=== PATIENT | male | born 1950 | race Caucasian/White ===

== ENCOUNTER 2018-06-27 09:40 | Day surgery (SDC) | payer OTHER ==
[2018-06-26 17:37] VITALS: BMI 28.9
[~2018-06-27 09:40] MED LIST: ACETAMINOPHEN 325 MG TABLET (FP) PO PRN
[2018-06-27] MEDS ORDERED: CYCLOPENTOLATE HCL 1% OPHTH SOLN 2 ML BOTTLE ONE (10:39)
[2018-06-27] MEDS ORDERED: PHENYLEPHRINE 2.5% OPHTH SOLN 15 ML BOTTLE ONE (10:39)
[2018-06-27] MEDS ORDERED: OFLOXACIN 0.3% OPHTHALMIC SOLUTION 5 ML BOTTLE ONE (10:39)
[2018-06-27] MEDS ORDERED: TROPICAMIDE 1% OPHTH SOLN 15 ML BOTTLE ONE (10:39)
[2018-06-27] MEDS ORDERED: KETOROLAC TROMETHAMINE 0.5% EYE DROP 1 DROP DROPS ONE (10:40)
[2018-06-27] MEDS ORDERED: MIDAZOLAM HCL 2 MG/2 ML SINGLE DOSE VIAL ONE (10:47)
[2018-06-27 10:48] VITALS: TEMP 98.5
[2018-06-27] MEDS ORDERED: ONDANSETRON 4 MG/2 ML VIAL IVPUSH PRN (10:51)
[2018-06-27] MEDS: TROPICAMIDE 1% OPHTH SOLN 15 ML BOTTLE OP SCH ×3 (11:00→11:10)
[2018-06-27] MEDS: KETOROLAC TROMETHAMINE 0.5% EYE DROP 1 DROP DROPS OP SCH ×3 (11:00→11:10)
[2018-06-27] MEDS ORDERED: LACTATED RINGERS SOLUTION 1,000 ML IV SCH (11:00)
[2018-06-27] MEDS: CYCLOPENTOLATE HCL 1% OPHTH SOLN 2 ML BOTTLE OP SCH ×3 (11:00→11:10)
[2018-06-27] MEDS: OFLOXACIN 0.3% OPHTHALMIC SOLUTION 5 ML BOTTLE OP SCH ×3 (11:00→11:10)
[2018-06-27] MEDS: PHENYLEPHRINE 2.5% OPHTH SOLN 15 ML BOTTLE OP SCH ×3 (11:00→11:10)
[2018-06-27] MEDS ORDERED: BUPIVACAINE HCL/PF 0.75% 10 ML VIAL NR ONE (11:21)
[2018-06-27] MEDS ORDERED: LIDOCAINE HCL/PF 2% SDV 5ML VIAL INF ONE (11:21)
[2018-06-27] MEDS ORDERED: POVIDONE-IODINE 5% OPHTHALMIC PREP 30 ML SOLUTION OD ONE (11:23)
[2018-06-27] MEDS ORDERED: BSS (NA/CA/MG/K) BALANCED SALT SOLUTION OPHTH SOLN 15 ML BOTTLE OD ONE (11:34)
[2018-06-27] MEDS ORDERED: TRYPAN BLUE 0.5 ML DISP.SYRIN IO ONE (11:34)
[2018-06-27] MEDS ORDERED: LIDOCAINE HCL 1% PRESERVATIVE FREE - 30ML VIAL IO ONE (11:34)
[2018-06-27] MEDS ORDERED: KETAMINE HCL 200 MG/20 ML VIAL ONE (11:35)
[2018-06-27] MEDS ORDERED: CHONDROITIN SU A/HYALUR SOD 1 KIT IO ONE (11:35)
[2018-06-27] MEDS ORDERED: EPINEPHrine/PF 1 MG/1 ML (1:1,000) AMPULE SQ ONE (11:42)
[2018-06-27] MEDS ORDERED: EPINEPHrine/PF 1 MG/1 ML (1:1,000) AMPULE ONE (12:03)
[2018-06-27 13:36] VITALS: BP 158/82; PULSE 60
--- NOTE | 2018-06-27 13:47 | OP ---
DATE OF OPERATION: 06/27/2018 SURGEON: Bladimir Dominguez M.D. PREOPERATIVE DIAGNOSIS: Mature cataract, right eye. POSTOPERATIVE DIAGNOSIS: Mature cataract, right eye. OPERATION: Phacoemulsification of right cataract with capsular staining with Trypan blue and posterior chamber intraocular lens implantation, lens used [id number], 22.0 diopter power, serial No. [id number]. ANESTHESIA: Peribulbar/Modified Van Lint/MAC. COMPLICATIONS: None. PROCEDURE: The patient was brought into the operating room and correctly identified along with the operative site as well as correct intraocular lens power. He was then given a peribulbar block under sedation with a 1:1 mixture of 2% Lidocaine and 0.75% Bupivacaine, 5 mL was used. Then, 3 mL of the same mixture was given as a modified Van Lint block. The eye was then prepped and draped in the usual sterile fashion including 5% Betadine solution in the conjunctival sac and an eyelid drape. An eyelid speculum was then placed into the right eye. The eyelid was inspected and a mature brown cataract was noted. A paracentesis port was created, and a small air bubble placed, and beneath the air bubble, the capsule was stained with Trypan blue. The Trypan blue was irrigated from the eye using 1% lidocaine preservative- free. Viscoelastic was injected to inflate the anterior chamber, and a temporal clear corneal was created. The eye was noted to be soft during wound construction. A continuous circular capsulorrhexis was performed. The nucleus was then hydro-dissected with BSS. A phacoemulsification was initiated by trying to create a central groove. The eye was noted to significantly deepen, nad the nucleus proved to be difficult to crack into 2 pieces. the decision was then made to create a cruciate groove within the nucleus. This took a significant amount of phacoemulsification energy and at times the procedure was halted to replace Viscoat within the anterior chamber to protect the cornea. The nucleus was finally cracked and removed in quadrants by also employing a chopping technique. There was no significant epinuclear material, and the cortical material was irrigated and aspirated from the eye. Viscoelastic was injected to inflate the capsular bag. The lens was injected into the capsular bag. The viscoelastic was then irrigated and aspirated from the eye. BSS was injected to inflate the anterior chamber, and the wounds were tested. However, the anterior chamber did not seem to be stable. A single 10-0 nylon suture was placed in the temporal clear corneal wound, and again, the anterior chamber tested. There seemed to be some leak in the superior paracentesis, so, another suture was placed. After the 2nd suture, the anterior chamber was noted be stable. All wounds were tested and found to be watertight. No further suture was placed. The intraocular lens was noted to be well centered and covered by the anterior capsular border. Topical Vancomycin given, the eye patched and shielded, and the patient discharged from the operating room in a stable condition. BLADIMIR DOMINGUEZ M.D. [id number] MTDAme
== END 2018-06-27 13:42 | disposition home or self-care (01) ==
LOC: JASU-SURG 09:40
PROVIDERS: ATTEND Ophthalmology
PROC: 08RJ3JZ Replacement of Right Lens with Synthetic Substitute, Percutaneous Approach (ICD-10-PCS; principal; 2018-06-27 11:00)
DX: H26.9 Unspecified cataract (principal)
CPT/HCPCS: 82962

== ENCOUNTER 2018-11-12 19:05 | Inpatient (IN) | payer OTHER ==
[2018-11-12 19:16] VITALS: BMI 26.3
[2018-11-12 21:20] LABS: BASO % 0.3 % (0-2.0); EOS % 0.3 % (0-4.5); HEMATOCRIT 38.5 % (35.4-49); HEMOGLOBIN 12.8 GM/dL (11.7-16.9); MCH 33.9 pg (25.7-33.7); MCHC 33.3 g/dl (32.0-35.9); MEAN CELL VOLUME 101.7 fl (80-96); MEAN PLT VOLUME 9.6 fl (7.5-11.1); MONO % 7.7 % (3.8-10.2); NEUT % 81.7 % (42.8-82.8); PLATELET COUNT 109 K/MM3 (134-434); RBC 3.78 M/mm3 (4.00-5.60); RDW 15.2 % (11.9-15.9); WHITE BLOOD COUNT 6.7 K/mm3 (4.0-10.0)
[2018-11-12 21:54] LABS: INR 1.2 (0.83-1.09); PROTHROMBIN TIME (PATIENT) 14.2 SEC (9.7-13.0)
--- NOTE | 2018-11-12 21:56 | PDOC ---
Attending Attestation - Resident Resident Name: AnupamanaDamon - ED Attending Attestation I have performed the following: I have examined & evaluated the patient, The case was reviewed & discussed with the resident, I agree w/resident's findings & plan, Exceptions are as noted - Medical Decision Making 11/13/18 00:08 This 68-year-old male brought in by ambulance from home because he was too weak to walk independently. He typically uses a walker and/or cane to ambulate. Tonight his family could not help him walk. He was very unsteady on his feet. His sister stated that he had been a [facility] having an EEG and had been immobilized in his bed from until Monday. He was discharged home and the family was alarmed and his inability to walk. Patient follows all commands. He can raise his legs off the bed for 5 seconds, there is no drift. No weakness. He can raise his arms up over his head for 10 seconds each. No weakness. Differential diagnosis includes weakness due to immobilization and deconditioning while in hospital, sepsis,cva 11/13/18 00:12 11/13/18 00:18 renal insuffiency vs dehydration w bun=56, cr=1.9 11/13/18 00:19 <Kindra Jose - Last Filed: 11/13/18 00:19> - HPI HPI: 11/12/18 22:07 The patient is a 68 year old male, with a significant past medical history of dementia, HTN, DM, who presents to the emergency department with, generalized weakness with associated left wrist and left knee pain. Patient normally ambulates with a cane and today cannot ambulate without assistance. He was recently at [facility] for 5 days for EEG testing. Allergies: NKDA - Physicial Exam PE: 11/12/18 22:07 GENERAL: Well-appearing, well-nourished. No apparent distress. HEENT: Normocephalic, atraumatic. PERRL, EOM intact. CARDIOVASCULAR: Normal S1, S2. Regular rate and rhythm. PULMONARY: Clear to auscultation bilaterally. ABDOMEN: Protuberant. Soft, non-distended, non-tender. EXTREMITIES: Normal ROM in all four extremities. No gross deformities. SKIN: Warm, dry. No rash NEUROLOGICAL: Can hold blt LE up for 10 seconds. Can hold blt UE up for 5 seconds. No focal neurological deficits. - Medical Decision Making Patient will be admitted to hospitalist for further evaluation. <Christiano Holguin - Last Filed: 11/13/18 01:38> Attestations - Attestations 11/12/18 22:07 Documentation prepared by Christiano Holguin, acting as medical librarian for Kindra Jose MD. <Christiano Holguin - Last Filed: 11/13/18 01:38>
[2018-11-12 22:17] LABS: ALBUMIN 3.4 g/dl (3.4-5.0); ALK PHOS 118 U/L (45-117); ANION GAP 6 MMOL/L (8-16); BILIRUBIN,TOTAL 0.3 mg/dL (0.2-1); BLOOD UREA NITROGEN 56 mg/dL (7-18); CHLORIDE 109 mmol/L (98-107); CO2 31 mmol/L (21-32); CREATININE 1.9 mg/dL (0.55-1.3); GLUCOSE,RANDOM 75 mg/dL (74-106); MAGNESIUM 2.4 mg/dL (1.8-2.4); POTASSIUM 3.9 mmol/L (3.5-5.1); SGOT/AST 44 U/L (15-37); SGPT/ALT 50 U/L (13-61); SODIUM 146 mmol/L (136-145)
[2018-11-12] MEDS ORDERED: SODIUM CHLORIDE 1,000 ML IV STA (22:39)
--- NOTE | 2018-11-12 22:50 | PDOC ---
History of Present Illness - General Chief Complaint: Pain, Acute Stated Complaint: WEAKNESS Time Seen by Provider: 11/12/18 19:51 History Source: Family Exam Limitations: Clinical Condition - History of Present Illness Initial Comments: 11/12/18 22:46 Patient is a 68M with history of seizures, dementia here today with weakness. His family member at bedside states that he was recently admitted at [facility] (Admitted , discharged today 11/13/18) for Video EEG monitoring which was negative. Neurologist is Dr Ramirez. Patient's family member states that he normally walks with cane and walker at baseline but was unable to ambulate at home at all and they were not able to take care of him. No seizure activity was noted. His typical seizure is described as the patient ignoring the world for a minute or two, then coming back. Patient endorses pain in both his arms and legs, but denies falling. Past History - Past Medical History Allergies/Adverse Reactions: Allergies Allergy/AdvReac Type Severity Reaction Status Date / Time No Known Allergies Allergy Verified 11/12/18 19:16 Home Medications: Ambulatory Orders Amlodipine Besylate [Norvasc] 10 mg PO DAILY 04/05/12 Carbamazepine [Tegretol] 400 mg PO BID 04/05/12 Carvedilol [Coreg] 25 mg PO BID 04/05/12 Furosemide [Lasix] 40 mg PO DAILY 04/05/12 Vit B1 Mn/B2/B3/B5/B6/B12/C/FA [B Complex with Vitamin C Tab] 1 each PO DAILY Donepezil HCl 10 mg PO HS 06/26/18 Insulin Glargine,Hum.rec.anlog [Lantus] 28 unit SQ DAILY 06/26/18 Lacosamide [Vimpat -] 100 mg PO BID 06/26/18 Cardiac Disorders: Yes (CVA) COPD: No CHF: Yes Dementia: Yes Diabetes: Yes HTN: Yes Hypercholesterolemia: Yes Seizures: Yes - Suicide/Smoking/Psychosocial Hx Smoking Status: No Smoking History: Never smoked Have you smoked in the past 12 months: No Number of Cigarettes Smoked Daily: 0 Information on smoking cessation initiated: No Hx Alcohol Use: No Drug/Substance Use Hx: No Substance Use Type: None Hx Substance Use Treatment: No Review of Systems - Review of Systems Comments:: 11/12/18 22:50 GENERAL/CONSTITUTIONAL: No fever or chills. No weakness. HEAD, EYES, EARS, NOSE AND THROAT: No change in vision. No sore throat. CARDIOVASCULAR: No chest pain or shortness of breath RESPIRATORY: No cough, wheezing, or hemoptysis. GASTROINTESTINAL: No nausea, vomiting, diarrhea or constipation. GENITOURINARY: No dysuria, frequency, or change in urination. MUSCULOSKELETAL: +bodyaches. No neck or back pain. SKIN: No rash NEUROLOGIC: No headache, vertigo, loss of consciousness, or change in strength/ sensation. ENDOCRINE: No increased thirst. No abnormal weight change HEMATOLOGIC/LYMPHATIC: No anemia, easy bleeding, or history of blood clots. ALLERGIC/IMMUNOLOGIC: No hives or skin allergy. *Physical Exam - Vital Signs Last Vital Signs Temp Pulse Resp BP Pulse Ox 98.2 F 78 16 132/68 100 11/12/18 19:14 11/12/18 19:14 11/12/18 19:14 11/12/18 19:14 11/12/18 19:14 - Physical Exam Comments: 11/12/18 22:50 GENERAL: Awake, alert, in no acute distress HEAD: No signs of trauma, normocephalic, atraumatic EYES: PERRLA, EOMI, sclera anicteric, conjunctiva clear ENT: Auricles normal inspection, hearing grossly normal, nares patent, oropharynx clear without exudates. Moist mucosa NECK: Normal ROM, supple, no lymphadenopathy, JVD, or masses LUNGS: No distress, speaks full sentences, clear to auscultation bilaterally HEART: Regular rate and rhythm, normal S1 and S2, no murmurs, rubs or gallops, peripheral pulses normal and equal bilaterally. ABDOMEN: Soft, nontender, normoactive bowel sounds. No guarding, no rebound. No masses EXTREMITIES: Normal inspection, Normal range of motion, no edema. No clubbing or cyanosis. NEUROLOGICAL: Cranial nerves II through XII grossly intact. Normal speech, 5/5 strength in all extremities, no focal sensorimotor deficits SKIN: Warm, Dry, normal turgor, no rashes or lesions noted. Moderate Sedation - Procedure Monitoring Vital Signs: Procedure Monitoring Vital Signs Temperature 98.2 F 11/12/18 19:14 Pulse Rate 78 11/12/18 19:14 Respiratory Rate 16 11/12/18 19:14 Blood Pressure 132/68 11/12/18 19:14 O2 Sat by Pulse Oximetry (%) 100 11/12/18 19:14 ED Treatment Course - LABORATORY CBC & Chemistry Diagram: 11/12/18 20:58 11/12/18 20:58 - ADDITIONAL ORDERS Additional order review: Laboratory Results 11/12/18 11/12/18 20:58 20:58 PT with INR 14.20 H INR 1.20 H Sodium 146 H Potassium 3.9 Chloride 109 H Carbon Dioxide 31 Anion Gap 6 L BUN 56 H Creatinine 1.9 H Creat Clearance w eGFR 35.43 Random Glucose 75 Calcium 9.0 Magnesium 2.4 Total Bilirubin 0.3 AST 44 H ALT 50 Alkaline Phosphatase 118 H Creatine Kinase 123 Troponin I < 0.02 Total Protein 8.0 Albumin 3.4 11/12/18 20:58 RBC 3.78 L MCV 101.7 H MCHC 33.3 RDW 15.2 MPV 9.6 D Neutrophils % 81.7 D Lymphocytes % 10.0 D Monocytes % 7.7 Eosinophils % 0.3 D Basophils % 0.3 - RADIOLOGY Radiology Studies Ordered: Category Date Time Status HEAD CT WITHOUT CONTRAST [CT] Stat CT Scan 11/12/18 20:37 Ordered CHEST X-RAY PORTABLE* [RAD] Stat Radiology 11/12/18 20:31 Taken Medical Decision Making - Medical Decision Making 11/12/18 22:51 Patient is a 68M with history of dementia and seizure here today with weakness. Vitals normal and stable. Stroke considered, but no focal deficits found. Suspect deconditioning and not enough sr. 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 DDx includes, but is not limited to: acs, uti, pneumonia. Will workup with basic labs, ekg, ct head, cxr. Will likely require obs admission. CBC normal. CMP shows likely prerenal perri. Will give fluids. Pending UA nand CT head. 11/12/18 22:58 CXR clear. 11/12/18 23:13 EKG shows nsr, no st elevations/depressions. Normal axis. Normal intervals. No significant t wave abnormalities. *DC/Admit/Observation/Transfer Diagnosis at time of Disposition: Weakness - Discharge Dispostion Condition at time of disposition: Stable - Referrals - Patient Instructions - Post Discharge Activity
[2018-11-12 23:56] LABS: URINE APPEARANCE SLCLOUDY; URINE BILIRUBIN NEGATIVE (<2.0 mg/dL); URINE COLOR YELLOW; URINE GLUCOSE (UA) NEGATIVE (NEGATIVE); URINE KETONE NEGATIVE (NEGATIVE); URINE LEUK ESTERASE NEGATIVE (NEGATIVE); URINE NITRITE NEGATIVE (NEGATIVE); URINE PROTEIN 1+ (NEGATIVE)
[2018-11-13 01:23] LABS: EPI CELLS RARE /HPF (FEW)
[2018-11-13] MEDS ORDERED: SODIUM CHLORIDE 1,000 ML IV STA (02:14)
[2018-11-13 02:24] LABS: ANISOCYTOSIS 0; HELMET CELLS 0; HOWELL-JOLLY BODIES 0; MACROCYTOSIS 0; OVALOCYTE 0; PLATELET ESTIMATE DECREASED; ROULEAU 0; SICKELED CELLS 0; TARGET CELLS 0; TEAR DROP CELLS 0; TOXIC GRANULATION 0
--- NOTE | 2018-11-13 02:31 | HP ---
CHIEF COMPLAINT: new onset lower extremity weakness PCP:Dr. Lerner HISTORY OF PRESENT ILLNESS: This is a 68 year old mainly Kyrgyz speaking male with history of hypertension( on meds), insulin dependent diabetes mellitus, seizures and dementia who presents to ER today with symptoms of new onset of bilateral lower extremity weakness. He was seen at [facility] and discharged yesterday for similar symptoms. He had a EEG done at prior facility which was negative. He denies prior history of kidney disease. He denies dizziness, syncopy, chest pain, or shortness of breath. Upon evaluation in the ER CT scan of head was unremarkable. Lab findings notable for a normal WBC, electrolytes and hematocrit and hemoglobin, creatinine was abnormal at 1.9, sodium 146, and platelets 109,000. Translation was provided by ER staff on my assessment with patient. Recent Travel:Denies PAST MEDICAL HISTORY: Hypertension IDDM Seizures Dementia PAST SURGICAL HISTORY: Denies Social History: Smoking:Denies Alcohol:Denies Drugs: Denies Family History: Allergies No Known Allergies Allergy (Verified 11/12/18 19:16) HOME MEDICATIONS: Home Medications Medication Instructions Recorded Amlodipine Besylate [Norvasc] 10 mg PO DAILY 04/05/12 Carbamazepine [Tegretol] 400 mg PO BID 04/05/12 Carvedilol [Coreg] 25 mg PO BID 04/05/12 Furosemide [Lasix] 40 mg PO DAILY 04/05/12 Vit B1 Mn/B2/B3/B5/B6/B12/C/FA [B 1 each PO DAILY 04/05/12 Complex with Vitamin C Tab] Donepezil HCl 10 mg PO HS 06/26/18 Insulin Glargine,Hum.rec.anlog 28 unit SQ DAILY 06/26/18 [Lantus] Lacosamide [Vimpat -] 100 mg PO BID 06/26/18 REVIEW OF SYSTEMS CONSTITUTIONAL: Absent: fever, chills, diaphoresis, generalized weakness, malaise, loss of appetite, weight change HEENT: Absent: rhinorrhea, nasal congestion, throat pain, throat swelling, difficulty swallowing, mouth swelling, ear pain, eye pain, visual changes CARDIOVASCULAR: Absent: chest pain, syncope, palpitations, irregular heart rate, lightheadedness , peripheral edema RESPIRATORY: Absent: cough, shortness of breath, dyspnea with exertion, orthopnea, wheezing, stridor, hemoptysis GASTROINTESTINAL: Absent: abdominal pain, abdominal distension, nausea, vomiting, diarrhea, constipation, melena, hematochezia GENITOURINARY: Absent: dysuria, frequency, urgency, hesitancy, hematuria, flank pain, genital pain MUSCULOSKELETAL: Absent: myalgia, arthralgia, joint swelling, back pain, neck pain SKIN: Absent: rash, itching, pallor HEMATOLOGIC/IMMUNOLOGIC: Absent: easy bleeding, easy bruising, lymphadenopathy, frequent infections ENDOCRINE: Absent: unexplained weight gain, unexplained weight loss, heat intolerance, cold intolerance NEUROLOGIC: Absent: headache, focal weakness or paresthesias, dizziness, unsteady gait, seizure, mental status changes, bladder or bowel incontinence, generalized upper and lower extremity weakness PSYCHIATRIC: Absent: anxiety, depression, suicidal or homicidal ideation, hallucinations. PHYSICAL EXAMINATION Vital Signs - 24 hr 11/12/18 19:14 Temperature 98.2 F Pulse Rate 78 Respiratory 16 Rate Blood Pressure 132/68 O2 Sat by Pulse 100 Oximetry (%) GENERAL: awake, alert, and fully oriented, no acute distress HEAD: normal with no signs of trauma EYES: pupils equal, round and reactive to light EARS, NOSE, THROAT: ears normal, nares patent NECK: normal range of motion, supple LUNGS: breath sounds equal, clear to auscultation bilaterally. no wheezes, and no crackles. no accessory muscle use. HEART: regular rate and rhythm, normal S1 and S2 without murmur ABDOMEN: soft, nontender, not distended,bowel sounds present MUSCULOSKELETAL: moving upper and lower extremities with equal hand grasp UPPER EXTREMITIES: 2+ pulses, warm, well-perfused LOWER EXTREMITIES: 2+ pulses, warm, well-perfused no edema NEUROLOGICAL: normal speech, moving upper and lower extremities with no weakness PSYCHIATRIC: normal SKIN: warm, dry, normal turgor, no rashes or lesions Laboratory Results - last 24 hr 11/12/18 11/12/18 11/12/18 20:58 20:58 20:58 WBC 6.7 RBC 3.78 L Hgb 12.8 Hct 38.5 MCV 101.7 H MCH 33.9 H MCHC 33.3 RDW 15.2 Plt Count 109 L MPV 9.6 D Absolute Neuts (auto) 5.5 Neutrophils % 81.7 D Neutrophils % (Manual) 80.8 Band Neutrophils % 3.0 Lymphocytes % 10.0 D Lymphocytes % (Manual) 8.1 Monocytes % 7.7 Monocytes % (Manual) 8 Eosinophils % 0.3 D Eosinophils % (Manual) 0.0 Basophils % 0.3 Basophils % (Manual) 0.0 Myelocytes % (Man) 0 Promyelocytes % (Man) 0 Blast Cells % (Manual) 0 Nucleated RBC % 0 Metamyelocytes 0 Hypochromia 0 Toxic Granulation 0 Dohle Bodies 0 Platelet Estimate Decreased Polychromasia 0 Poikilocytosis 0 Basophilic Stippling 0 Anisocytosis 0 Microcytosis 0 Macrocytosis 0 Spherocytes 0 Sickle Cells 0 Target Cells 0 Tear Drop Cells 0 Ovalocytes 0 Stomatocytes 0 Helmet Cells 0 Campos-Eitzen Bodies 0 [place] Rings 0 [place] Cells 0 Acanthocytes (Spur) 0 Rouleaux 0 Fragmented RBCs 0 Schistocytes 0 PT with INR 14.20 H INR 1.20 H Sodium 146 H Potassium 3.9 Chloride 109 H Carbon Dioxide 31 Anion Gap 6 L BUN 56 H Creatinine 1.9 H Creat Clearance w eGFR 35.43 Random Glucose 75 Calcium 9.0 Magnesium 2.4 Total Bilirubin 0.3 AST 44 H ALT 50 Alkaline Phosphatase 118 H Creatine Kinase 123 Troponin I < 0.02 Total Protein 8.0 Albumin 3.4 Urine Color Urine Appearance Urine pH Ur Specific [place] Urine Protein Urine Glucose (UA) Urine Ketones Urine Blood Urine Nitrite Urine Bilirubin Urine Urobilinogen Ur Leukocyte Esterase Urine WBC (Auto) Urine RBC (Auto) Ur Epithelial Cells 11/12/18 23:41 WBC RBC Hgb Hct MCV MCH MCHC RDW Plt Count MPV Absolute Neuts (auto) Neutrophils % Neutrophils % (Manual) Band Neutrophils % Lymphocytes % Lymphocytes % (Manual) Monocytes % Monocytes % (Manual) Eosinophils % Eosinophils % (Manual) Basophils % Basophils % (Manual) Myelocytes % (Man) Promyelocytes % (Man) Blast Cells % (Manual) Nucleated RBC % Metamyelocytes Hypochromia Toxic Granulation Dohle Bodies Platelet Estimate Polychromasia Poikilocytosis Basophilic Stippling Anisocytosis Microcytosis Macrocytosis Spherocytes Sickle Cells Target Cells Tear Drop Cells Ovalocytes Stomatocytes Helmet Cells Campos-Eitzen Bodies Pal[place] Rings Silverio Cells Acanthocytes (Spur) Rouleaux Fragmented RBCs Schistocytes PT with INR INR Sodium Potassium Chloride Carbon Dioxide Anion Gap BUN Creatinine Creat Clearance w eGFR Random Glucose Calcium Magnesium Total Bilirubin AST ALT Alkaline Phosphatase Creatine Kinase Troponin I Total Protein Albumin Urine Color Yellow Urine Appearance Slcloudy Urine pH 5.0 Ur Specific [place] 1.017 Urine Protein 1+ H Urine Glucose (UA) Negative Urine Ketones Negative Urine Blood Negative Urine Nitrite Negative Urine Bilirubin Negative Urine Urobilinogen 2.0 Ur Leukocyte Esterase Negative Urine WBC (Auto) 1 Urine RBC (Auto) 1 Ur Epithelial Cells Rare ASSESSMENT/PLAN: Mr. Panchal is a 68 year old mainly Kyrgyz speaking male with history of hypertension, insulin dependent diabetes mellitus, seizures and dementia who presented with symptoms of new onset of weakness. He had an EEG done at prior facility which was negative. Acute onset of weakness/ History of Seizures No neurological focal deficits. CT scan of head is unremarkable. UA negative, TSH pending. Continue with tegretol. Check tegretol level. Neurology (Dr. Cao) was consulted. Dehydration/ Mild Hypernatremia IV fluids initiated at 75 cc/hr. BP normotensive. Continue to monitor closely. Acute Renal Insufficiency Patient denies prior history of renal disease. IV fluids initiated at 75 cc/hr. UA with 1+ proteinuria. Nephrology (Dr. Gallo) was consulted. IDDM Accucheks before meals and at bedtime. Continue with insulin glargine. Check hemoglobn a1c. Hypertension Controlled. Continue with coreg, amlodipine and lasix. He appears euvolemic. Dementia Continue donzepil. FEN IV fluids at 75cc/hr, monitor electrolytes closely. DVT Heparin sq ordered. Visit type - Emergency Visit Emergency Visit: Yes ED Registration Date: 11/13/18 Care time: The patient presented to the Emergency Department on the above date and was hospitalized for further evaluation of their emergent condition. - New Patient This patient is new to me today: Yes Date on this admission: 11/13/18 - Critical Care Critical Care patient: No
[2018-11-13] MEDS ORDERED: INSULIN (LEVEMIR) 100 UNITS/ML UNITS SQ SCH ×2 (07:00→14:09)
[2018-11-13 07:27] LABS: HEMATOCRIT 35.3 % (35.4-49); MCH 33.1 pg (25.7-33.7); MCHC 33.9 g/dl (32.0-35.9); MEAN CELL VOLUME 97.6 fl (80-96); MEAN PLT VOLUME 8.8 fl (7.5-11.1); PLATELET COUNT 104 K/MM3 (134-434); RBC 3.61 M/mm3 (4.00-5.60); RDW 14.2 % (11.9-15.9)
[2018-11-13 08:05] LABS: ANION GAP 5 MMOL/L (8-16); BLOOD UREA NITROGEN 63 mg/dL (7-18); CHLORIDE 115 mmol/L (98-107); CO2 28 mmol/L (21-32); CREATININE 1.7 mg/dL (0.55-1.3); MAGNESIUM 2.2 mg/dL (1.8-2.4); POTASSIUM 3.6 mmol/L (3.5-5.1); SODIUM 148 mmol/L (136-145)
[2018-11-13 08:08] LABS: GLUCOSE,RANDOM 37 mg/dL (74-106)
[2018-11-13] MEDS ORDERED: ACETAMINOPHEN 325 MG TABLET (FP) ONE (08:13)
[2018-11-13] MEDS ORDERED: ACETAMINOPHEN 500 MG TABLET (FP) PO ONE (08:21)
[2018-11-13] MEDS ORDERED: DEXTROSE 50%-WATER - 25 GM/50 ML VIAL IVPUSH ONE (08:21)
[2018-11-13] MEDS ORDERED: FUROSEMIDE 40 MG TABLET (FP) PO SCH (10:00)
[2018-11-13] MEDS: HEPARIN NA (PORCINE) 5,000 UNITS/ML 1ML VIAL SQ SCH ×2 (11:35→21:28)
[2018-11-13] MEDS: CARVEDILOL 25 MG TABLET (FP) PO SCH ×2 (11:35→21:30)
[2018-11-13] MEDS: amLODIPine BESYLATE 10 MG TABLET (FP) PO SCH (11:35)
[2018-11-13] MEDS: carBAMazepine 200 MG TABLET PO SCH ×2 (13:32→21:29)
[2018-11-13] MEDS ORDERED: ACETAMINOPHEN 325 MG TABLET (FP) PO PRN (13:55)
[2018-11-13] MEDS ORDERED: SODIUM CHLORIDE 0.45% 1,000 ML IV SCH (14:00)
--- NOTE | 2018-11-13 14:00 | PN ---
Progress Note, Physician Chief Complaint: BLLE weakness History of Present Illness: NAD slightly hypernatremic CT head negative otherwise labs unremarkable - Current Medication List Current Medications: Active Medications Amlodipine Besylate (Norvasc -) 10 mg PO DAILY [facility] Last Admin: 11/13/18 11:35 Dose: 10 mg Carbamazepine (Tegretol -) 400 mg PO BID [facility] Last Admin: 11/13/18 13:32 Dose: 400 mg Carvedilol (Coreg -) 25 mg PO BID [facility] Last Admin: 11/13/18 11:35 Dose: 25 mg Donepezil HCl (Aricept -) 10 mg PO HS [facility] Furosemide (Lasix -) 40 mg PO DAILY [facility] Last Admin: 11/13/18 11:35 Dose: 40 mg Heparin Sodium (Porcine) (Heparin -) 5,000 unit SQ BID [facility] Last Admin: 11/13/18 11:35 Dose: 5,000 unit Insulin Detemir (Levemir Vial) 28 units SQ DAILY@0700 [facility] Last Admin: 11/13/18 08:29 Dose: Not Given - Objective Vital Signs: Vital Signs Temperature 102 F H 11/13/18 09:46 Pulse Rate 77 11/13/18 09:52 Respiratory Rate 18 11/13/18 09:52 Blood Pressure 108/58 L 11/13/18 09:52 O2 Sat by Pulse Oximetry (%) 96 11/13/18 07:46 Constitutional: Yes: Well Nourished, No Distress, Calm Cardiovascular: Yes: Regular Rate and Rhythm Respiratory: Yes: Regular Gastrointestinal: Yes: Normal Bowel Sounds, Soft Musculoskeletal: Yes: Muscle Weakness (BLLE) Extremities: Yes: WNL Edema: No Peripheral Pulses WNL: Yes Neurological: Yes: Alert, Pre-Existing Deficit Psychiatric: Yes: Alert Labs: CBC, BMP 11/13/18 06:00 11/13/18 06:00 INR, PTT INR 1.20 (0.83-1.09) H 11/12/18 20:58 Problem List - Problems (1) Bilateral leg weakness Assessment/Plan: -Neurology consult -EMG BLLE -Consider MRI Lumbar spine -Check B12, RPR -Physical therapy+ Physiatry Code(s): R29.898 - OTH SYMPTOMS AND SIGNS INVOLVING THE MUSCULOSKELETAL SYSTEM (2) Hypernatremia Assessment/Plan: -Nephrology consult -1/2 normal saline @ 50 cc/hr x 24 hrs -monitor trend Code(s): E87.0 - HYPEROSMOLALITY AND HYPERNATREMIA (3) RAYNE (acute kidney injury) Assessment/Plan: -Nephrology consult -1/2 normal saline @ 50 cc/hr x 24 hrs -monitor trend Code(s): N17.9 - ACUTE KIDNEY FAILURE, UNSPECIFIED (4) Diabetes mellitus Assessment/Plan: -BGM AC HS -Diabetic low sodium diet -Endocrinology consult -A1C 7.0 -Novolog sliding scale Code(s): E11.9 - TYPE 2 DIABETES MELLITUS WITHOUT COMPLICATIONS (5) Epilepsy Assessment/Plan: -Neurology consult -Resume Tegretol + Vimpat Code(s): G40.909 - EPILEPSY, UNSP, NOT INTRACTABLE, WITHOUT STATUS EPILEPTICUS (6) Fever Assessment/Plan: -CXR unremarkable -no leukocytosis -ID consult -Ordered blood cultures + UC -Acetaminophen 650 mg po Q4H prn for fever >100.0F Code(s): R50.9 - FEVER, UNSPECIFIED Assessment/Plan see problem list DVT prophylaxis
--- NOTE | 2018-11-13 14:27 | PN ---
Progress Note (short form) - Note Progress Note: ID consult dictated imp/reccd 68 yo man admitted with generalized weakness he is too weak to ambulate on his own s/p 5 day EEG testing at another facility family noted he was too weak to ambulate after he came home now with fever as high as 102 leukopenia thrombocytopenia fever ?influenza stat blood cultures stat influenza screen rocephin after cultures pending further w/u ?Eric-renal/bladder sonogram, r/o obstruction abnl lfts- would get liver/gallbladder sonogram history dementia history seizure disorder Problem List - Problems (1) Fever Code(s): R50.9 - FEVER, UNSPECIFIED (2) ERIC (acute kidney injury) Code(s): N17.9 - ACUTE KIDNEY FAILURE, UNSPECIFIED (3) Epilepsy Code(s): G40.909 - EPILEPSY, UNSP, NOT INTRACTABLE, WITHOUT STATUS EPILEPTICUS (4) Dementia Code(s): F03.90 - UNSPECIFIED DEMENTIA WITHOUT BEHAVIORAL DISTURBANCE
--- NOTE | 2018-11-13 14:31 | CONSULT ---
Consult Consult Specialty:: Nephrology Reason for Consultation:: rayne - History of Present Illness Chief Complaint: weakness History of Present Illness: Pt is a 68 year old male with pmhx of epilepsy, htn, and dementia who presents to the ER with weakness. He normally is able to walk with a walker however he is now unable to ambulate. He denies history of CKD. I was called to evaluate him for elevated creatinine. He was also found to be hypernatremic. He is on lasix at home. He still complains of weakness. He denies nsaid use. He denies dysuria or hematuria. Pt has also been having fevers. 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: Dementia, Other (epilepsy) Cardio/Vascular: Yes: HTN - Alcohol/Substance Use Hx Alcohol Use: No - Smoking History Smoking history: Never smoked Have you smoked in the past 12 months: No Aproximately how many cigarettes per day: 0 Home Medications - Allergies Allergies/Adverse Reactions: Allergies Allergy/AdvReac Type Severity Reaction Status Date / Time No Known Allergies Allergy Verified 11/12/18 19:16 - Home Medications Home Medications: Ambulatory Orders Amlodipine Besylate [Norvasc] 10 mg PO DAILY 04/05/12 Carbamazepine [Tegretol] 400 mg PO BID 04/05/12 Carvedilol [Coreg] 25 mg PO BID 04/05/12 Furosemide [Lasix] 40 mg PO DAILY 04/05/12 Vit B1 Mn/B2/B3/B5/B6/B12/C/FA [B Complex with Vitamin C Tab] 1 each PO DAILY Donepezil HCl 10 mg PO HS 06/26/18 Insulin Glargine,Hum.rec.anlog [Lantus] 28 unit SQ DAILY 06/26/18 Lacosamide [Vimpat -] 100 mg PO BID 06/26/18 Family Disease History - Family Disease History Family History: Denies Review of Systems - Review of Systems Constitutional: reports: Fever, Malaise Eyes: reports: No Symptoms HENT: reports: No Symptoms Neck: reports: No Symptoms Cardiovascular: reports: No Symptoms Respiratory: reports: No Symptoms Gastrointestinal: reports: No Symptoms Genitourinary: reports: No Symptoms Musculoskeletal: reports: Muscle Weakness Integumentary: reports: No Symptoms Neurological: reports: No Symptoms Endocrine: reports: No Symptoms Hematology/Lymphatic: reports: No Symptoms Psychiatric: reports: No Symptoms Physical Exam Vital Signs: Vital Signs Temperature 99.9 F H 11/13/18 13:45 Pulse Rate 72 11/13/18 13:45 Respiratory Rate 19 11/13/18 13:45 Blood Pressure 104/58 L 11/13/18 13:45 O2 Sat by Pulse Oximetry (%) 96 11/13/18 07:46 Constitutional: Yes: Calm Eyes: Yes: Conjunctiva Clear HENT: Yes: Atraumatic Neck: Yes: Supple Cardiovascular: Yes: S1, S2 Respiratory: Yes: CTA Bilaterally Gastrointestinal: Yes: Soft Renal/: Yes: WNL Musculoskeletal: Yes: Muscle Weakness Edema: No Neurological: Yes: Confusion Labs: CBC, BMP 11/13/18 06:00 11/13/18 06:00 Laboratory Tests 04/05/12 11/12/18 11/12/18 18:43 20:58 20:58 WBC 6.7 Sodium Creatinine 1.3 1.9 H POC Glucometer Hemoglobin A1c % 11/13/18 11/13/18 11/13/18 06:00 06:00 06:00 WBC 4.0 Sodium 148 H Creatinine 1.7 H POC Glucometer Hemoglobin A1c % 7.0 H 11/13/18 11/13/18 08:20 08:42 WBC Sodium Creatinine POC Glucometer 37 166 Hemoglobin A1c % Imaging - Results Chest X-ray: Report Reviewed Cat Scan: Report Reviewed Problem List - Problems (1) RAYNE (acute kidney injury) Code(s): N17.9 - ACUTE KIDNEY FAILURE, UNSPECIFIED (2) Bilateral leg weakness Code(s): R29.898 - OTH SYMPTOMS AND SIGNS INVOLVING THE MUSCULOSKELETAL SYSTEM (3) Dementia Code(s): F03.90 - UNSPECIFIED DEMENTIA WITHOUT BEHAVIORAL DISTURBANCE (4) Epilepsy Code(s): G40.909 - EPILEPSY, UNSP, NOT INTRACTABLE, WITHOUT STATUS EPILEPTICUS (5) Fever Code(s): R50.9 - FEVER, UNSPECIFIED (6) Hypernatremia Code(s): E87.0 - HYPEROSMOLALITY AND HYPERNATREMIA (7) Weakness Code(s): R53.1 - WEAKNESS Assessment/Plan Current Medications Generic Name Dose Route Start Last Admin Trade Name Freq PRN Reason Stop Dose Admin Acetaminophen 650 mg 11/13/18 13:55 Tylenol - PO Q4H PRN PAIN Amlodipine Besylate 10 mg 11/13/18 10:00 11/13/18 11:35 Norvasc - PO 10 mg DAILY LO Administration Carbamazepine 400 mg 11/13/18 10:00 11/13/18 13:32 Tegretol - PO 400 mg BID LO Administration Carvedilol 25 mg 11/13/18 10:00 11/13/18 11:35 Coreg - PO 25 mg BID [facility] Administration Donepezil HCl 10 mg 11/13/18 22:00 Aricept - PO HS LO Furosemide 40 mg 11/13/18 10:00 11/13/18 11:35 Lasix - PO 40 mg DAILY [facility] Administration Heparin Sodium (Porcine) 5,000 unit 11/13/18 10:00 11/13/18 11:35 Heparin - SQ 5,000 unit BID [facility] Administration Sodium Chloride 1,000 mls @ 50 mls/hr 11/13/18 14:00 1/2 Normal Saline IV 11/14/18 13:57 ASDIR [facility] Ceftriaxone Sodium 1 gm/ 100 mls @ 200 mls/hr 11/13/18 14:30 Dextrose IVPB DAILY [facility] Protocol Insulin Aspart 1 vial 11/13/18 16:30 Novolog Vial Sliding Scale - SQ TIDAC [facility] Protocol Insulin Detemir 14 units 11/13/18 14:09 Levemir Vial SQ DAILY@0700 [facility] Lacosamide 100 mg 11/13/18 13:56 Vimpat - PO BID [facility] Laboratory Tests 11/12/18 20:58 Creatine Kinase 123 Impression 1. RAYNE 2. hypernatremia 3. weakness 4. dementia 5. HTN 6. epilepsy 7. 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
--- NOTE | 2018-11-13 15:50 | CONS ---
DATE OF CONSULTATION: DATE OF DICTATION: 11/13/2018 INFECTIOUS DISEASE CONSULTATION HISTORY OF PRESENT ILLNESS: This is a 68-year-old man with a history of hypertension, diabetes, seizure disorder and dementia who presents with lower extremity weakness. He apparently just had an EEG done, EEG testing at [facility] and was discharged from there. After he got home, the family noted that he was unable to ambulate due to weakness, and he was brought to the emergency room. He is otherwise awake and alert. He just ate his lunch. He withdraws his legs to stimulation. He can raise his arms. After admission, he was afebrile in the ER. He was noted to have fever to 102 rectally. I am asked to see him for further evaluation. PAST MEDICAL HISTORY: As stated, is notable for history of hypertension, diabetes, seizure disorder, dementia. PAST SURGICAL HISTORY: Negative. SOCIAL HISTORY: Unremarkable. No history of cigarette, alcohol or substance use. ALLERGIES: He has no known drug allergies. MEDICATION: At home include Vimpat insulin, donepezil, B complex vitamins, furosemide, Coreg, Tegretol, and Norvasc. REVIEW OF SYSTEMS: Notable for the generalized weakness. PHYSICAL EXAMINATION: GENERAL: He is awake. He is verbally responsive. VITAL SIGNS: T-max is 102 rectally, currently 99.9. Pulse is 72. Blood pressure 104/58. Respiratory rate 19. He weighs 87 kg. He is saturating 96% on room air. HEENT: Normocephalic. Eyes are anicteric. He has got a cataract, it looks like in his left eye. NECK: Supple. He moves his head around easily. LUNGS: Diminished breath sounds at the bases. HEART: Regular rate and rhythm. ABDOMEN: Soft, nontender. EXTREMITIES: Without edema. SKIN: He has no skin breakdown. LABORATORY: White count is 4, hemoglobin 12.12, platelets of 104, INR 1.2, BUN and creatinine are 5 and 1.7, glucose was 37. Liver function tests: AST of 44, ALT of 50, alkaline phosphatase of 118. Urinalysis is notable for 1+ protein. And a urine culture has been sent. Chest x-ray is unremarkable. Head CT shows no acute intracranial hemorrhage. He has chronic ischemic changes in the right frontal and right temporal lobe, and an old lacunar infarct in the left thalamus. IMPRESSION: 1. In summary, this is a 68-year-old man with dementia and seizures admitted with generalized weakness. He now has fever and leukopenia and thrombocytopenia. Concern would be for influenza. Would obtain stat blood cultures, stat influenza screen. Would treat him with Rocephin after cultures pending further workup. 2. Acute kidney injury. Would obtain renal bladder sonogram. This may be dehydration, but in the setting of fever, it is important to rule out obstruction. Abnormal liver function tests, as well would get liver gallbladder sonogram. This could all be due to aviral infection, but would obtain imaging as well, given his high-grade fever. He has a history of dementia and a history of seizure disorder and is going to be evaluated by neurology. Further recommendations to follow. ANABELLA MONTANO M.D. [id number] MTDD
--- NOTE | 2018-11-13 16:29 | EKG ---
Test Reason : Blood Pressure : / mmHG Vent. Rate : 075 BPM Atrial Rate : 075 BPM P-R Int : 190 ms QRS Dur : 106 ms QT Int : 356 ms P-R-T Axes : 024 -14 069 degrees QTc Int : 397 ms POOR DATA QUALITY, INTERPRETATION MAY BE ADVERSELY AFFECTED NORMAL SINUS RHYTHM NORMAL ECG NO PREVIOUS ECGS AVAILABLE Confirmed by Todd Monroe ([id number]) on 11/13/2018 4:28:55 PM Referred By: Confirmed By:Todd Monroe
[2018-11-13] MEDS ORDERED: CEFTRIAXONE 1 GM in DEXTROSE 5%-WATER - 50 ML IVPB SCH (16:30)
[2018-11-13 17:10] LABS: URINE APPEARANCE CLOUDY; URINE BILIRUBIN NEGATIVE (<2.0 mg/dL); URINE COLOR DKYELLOW; URINE GLUCOSE (UA) NEGATIVE (NEGATIVE); URINE KETONE NEGATIVE (NEGATIVE); URINE LEUK ESTERASE NEGATIVE (NEGATIVE); URINE NITRITE NEGATIVE (NEGATIVE); URINE PROTEIN 1+ (NEGATIVE)
[2018-11-13] MEDS: SODIUM CHLORIDE 0.45% 1,000 ML IV SCH (17:14)
[2018-11-13] MEDS: LACOSAMIDE 50 MG TABLET PO SCH ×2 (17:15→21:28)
[2018-11-13 17:25] LABS: EPI CELLS RARE /HPF (FEW); GRANULAR CASTS 16 /lpf; URINE HYALINE CAST 4 /lpf
[2018-11-13] MEDS: INSULIN SLIDING SCALE (NOVOLOG) 1 VIAL SQ SCH (17:25)
[2018-11-13] MEDS ORDERED: CEFTRIAXONE 2,000 MG in DEXTROSE 5%-WATER - 50 ML IVPB ONE (19:55)
[2018-11-13] MEDS ORDERED: VANCOMYCIN 1 GRAM (PRE-DOCKED) 1,000 MG/250 ML BAG IVPB ONE (19:56)
--- NOTE | 2018-11-13 19:59 | HOSP ---
Physical Examination Vital Signs: Vital Signs Temperature 102.7 F H 11/13/18 16:11 Pulse Rate 95 H 11/13/18 16:11 Respiratory Rate 22 H 11/13/18 16:11 Blood Pressure 138/76 11/13/18 16:11 O2 Sat by Pulse Oximetry (%) 96 11/13/18 07:46 Labs: CBC, BMP 11/13/18 06:00 11/13/18 06:00 Hospitalist Encounter Assessment: Patient with high fevers up to 102.7F. No obvious source of infection identified. Patient does not have any complaints at this time when I saw him. Blood cultures are pending. Flu swab was negative. Will order empiric one time abx coverage with vancomycin and ceftriaxone. ID to follow up.
--- NOTE | 2018-11-13 20:56 | CONSULT ---
Consult - text type - Consultation Consultation Note: NEUROLOGY CONSULTATION: This 68 yo man with HTN, DM has h/o "dementia" and seizure disorder. Maintained On: amlodipine, carvedilol, furosamide, insulin, donepezil, carbamazepine (400 BID) and lacosamide (100 mg BID). Recently had 3-4 days of intensive video-EEG monitoring at [place]. Family now notes increasing weakness and inability to ambulate. CT of head (reviewed): shows chronic right frontal and temporal encephalomalacia (more suggestive of old trauma than CVA's). Tegretol level = 11.2 ug%. TSH= 2.28. B12= 515 pg%. Today had fevers to 102.3. Started on Ceftriaxone EXAM: No evidence of external head trauma. No bruits. Cor reg. Atrophic skin changes both shins and feet. Reduced neck ROM. Kernig's -. In diaper. NEURO: Awake alert. Follows some commands in Palestinian. Sparse speech CN II-XII: left field cut to threat? Gag OK Motor: Left drift. Left grasp sl weak. Left leg rests everted. L BJ, KJ > R. Both AJ's absent. Plantars silent. Coord: No obvious FTN dystaxia Sensory: Reduced reaction to pinch in feet. IMP: 1. Moderately severe, B/L cerebral dysfunction (OMS, Chronic) 2. Right cerebral accentuation with Extensive CT changes of old trauma vs. Old stroke 3. Mild left hemiparesis (age uncertain) 4. Diabetic peripheral neuropathy. 5. Seizure disorder. Probable Complex partial seizures by description and CT changes. 5. Worsening due to Toxic-metabolic Encephalopathy probably due to infection. SUGGEST: Agree with ID work up and antibiotics. CK, ESR, CRP Continue lacosamide 100 mg BID and Carbamazepine 400 mg BID Mobilize PT with bedside PT, then OO Bed to chair Continue Donepezil 10 mg q AM for now. Thank you very much, Miguel Cao MD
[2018-11-13] MEDS: DONEPEZIL HCL 10 MG TABLET (FP) PO SCH (21:30)
[2018-11-13] MEDS ORDERED: cefTRIAXone SODIUM 1 GM VIAL ONE (22:34)
[2018-11-13] MEDS ORDERED: DEXTROSE 5%-WATER - 50 ML IVPB ONE (22:35)
[2018-11-13] MEDS: CEFTRIAXONE 1 GM in DEXTROSE 5%-WATER - 50 ML IVPB SCH (23:00)
[2018-11-14] MEDS: SODIUM CHLORIDE 0.45% 1,000 ML IV SCH (05:38)
[2018-11-14] MEDS: INSULIN SLIDING SCALE (NOVOLOG) 1 VIAL SQ SCH ×3 (06:14→16:39)
[2018-11-14] MEDS ORDERED: INSULIN (NOVOLOG) ASPART 100 UNITS/ML 10ML VIAL ONE (06:19)
[2018-11-14 07:31] LABS: BASO % 0.1 % (0-2.0); EOS % 1.6 % (0-4.5); HEMOGLOBIN 11.1 GM/dL (11.7-16.9); LYMPH % 9.3 % (8-40); MCH 33.3 pg (25.7-33.7); MCHC 33.7 g/dl (32.0-35.9); MEAN CELL VOLUME 98.8 fl (80-96); MEAN PLT VOLUME 8.8 fl (7.5-11.1); MONO % 5.9 % (3.8-10.2); NEUT % 83.1 % (42.8-82.8); PLATELET COUNT 96 K/MM3 (134-434); RBC 3.34 M/mm3 (4.00-5.60); RDW 14.2 % (11.9-15.9); WHITE BLOOD COUNT 3.6 K/mm3 (4.0-10.0)
[2018-11-14 08:02] LABS: ALBUMIN 2.5 g/dl (3.4-5.0); ALK PHOS 93 U/L (45-117); ANION GAP 9 MMOL/L (8-16); BILIRUBIN,TOTAL 0.4 mg/dL (0.2-1); BLOOD UREA NITROGEN 84 mg/dL (7-18); CALCIUM 8.2 mg/dL (8.5-10.1); CHLORIDE 117 mmol/L (98-107); CO2 24 mmol/L (21-32); CREATININE 2.7 mg/dL (0.55-1.3); GLUCOSE,RANDOM 170 mg/dL (74-106); SGOT/AST 64 U/L (15-37); SGPT/ALT 67 U/L (13-61); SODIUM 150 mmol/L (136-145); TOT PROT 6.4 g/dl (6.4-8.2)
[2018-11-14 08:17] LABS: POTASSIUM 2.8 mmol/L (3.5-5.1)
--- NOTE | 2018-11-14 09:13 | PN ---
Progress Note, Physician Chief Complaint: AWAKE ALERT X 2 CONFUSED BASELINE DEMENTIA EVENTS AND NOTES REVIEWED - Current Medication List Current Medications: Active Medications Acetaminophen (Tylenol -) 650 mg PO Q4H PRN PRN Reason: PAIN Last Admin: 11/13/18 15:59 Dose: 650 mg Amlodipine Besylate (Norvasc -) 10 mg PO DAILY [facility] Last Admin: 11/13/18 11:35 Dose: 10 mg Carbamazepine (Tegretol -) 400 mg PO BID [facility] Last Admin: 11/13/18 21:29 Dose: 400 mg Carvedilol (Coreg -) 25 mg PO BID [facility] Last Admin: 11/13/18 21:30 Dose: 25 mg Donepezil HCl (Aricept -) 10 mg PO HS [facility] Last Admin: 11/13/18 21:30 Dose: 10 mg Heparin Sodium (Porcine) (Heparin -) 5,000 unit SQ BID [facility] Last Admin: 11/13/18 21:28 Dose: 5,000 unit Sodium Chloride (1/2 Normal Saline) 1,000 mls @ 60 mls/hr IV ASDIR [facility] Stop: 11/14/18 13:57 Last Admin: 11/14/18 05:38 Dose: 60 mls/hr Ceftriaxone Sodium 1 gm/ (Dextrose) 50 mls @ 100 mls/hr IVPB DAILY [facility] Last Admin: 11/13/18 23:00 Dose: 100 mls/hr Insulin Aspart (Novolog Vial Sliding Scale -) 1 vial SQ TIDAC [facility]; Protocol Last Admin: 11/14/18 06:14 Dose: Not Given Insulin Detemir (Levemir Vial) 14 units SQ DAILY@0700 [facility] Last Admin: 11/14/18 06:13 Dose: 14 units Lacosamide (Vimpat -) 100 mg PO BID [facility] Last Admin: 11/13/18 21:28 Dose: 100 mg - Objective Vital Signs: Vital Signs Temperature 100.3 F H 11/14/18 06:00 Pulse Rate 69 11/14/18 06:00 Respiratory Rate 20 11/14/18 06:00 Blood Pressure 114/59 L 11/14/18 06:00 O2 Sat by Pulse Oximetry (%) 96 11/13/18 21:00 Constitutional: Yes: Mild Distress Cardiovascular: Yes: Regular Rate and Rhythm Respiratory: Yes: WNL Gastrointestinal: Yes: WNL Genitourinary: Yes: Incontinence Musculoskeletal: Yes: Muscle Weakness Extremities: Yes: Other Edema: No Peripheral Pulses WNL: Yes Integumentary: Yes: WNL Wound/Incision: Yes: Clean/Dry Neurological: Yes: Confusion ...Motor Strength: LLE, RLE Labs: CBC, BMP 11/14/18 06:20 11/14/18 06:20 INR, PTT INR 1.20 (0.83-1.09) H 11/12/18 20:58 Problem List - Problems (1) RAYNE (acute kidney injury) Code(s): N17.9 - ACUTE KIDNEY FAILURE, UNSPECIFIED (2) Bilateral leg weakness Code(s): R29.898 - OTH SYMPTOMS AND SIGNS INVOLVING THE MUSCULOSKELETAL SYSTEM (3) Dementia Code(s): F03.90 - UNSPECIFIED DEMENTIA WITHOUT BEHAVIORAL DISTURBANCE (4) Diabetes mellitus Code(s): E11.9 - TYPE 2 DIABETES MELLITUS WITHOUT COMPLICATIONS (5) Epilepsy Code(s): G40.909 - EPILEPSY, UNSP, NOT INTRACTABLE, WITHOUT STATUS EPILEPTICUS (6) Fever Code(s): R50.9 - FEVER, UNSPECIFIED (7) Hypernatremia Code(s): E87.0 - HYPEROSMOLALITY AND HYPERNATREMIA (8) Weakness Code(s): R53.1 - WEAKNESS (9) Toxic metabolic encephalopathy Code(s): G92 - TOXIC ENCEPHALOPATHY Assessment/Plan IV ABX AWAIT CULTURES NEURO/ID CONSULT PT EVAL OOB TO CHAIR SEIZURE PRECAUTIONS
[2018-11-14 09:52] LABS: MAGNESIUM 2.1 mg/dL (1.8-2.4)
[2018-11-14] MEDS ORDERED: POTASSIUM CHLORIDE TABS 20 MEQ TABLET.ER (FP) PO SCH (10:00)
[2018-11-14] MEDS ORDERED: cefTRIAXone SODIUM 1 GM VIAL ONE (10:03)
[2018-11-14] MEDS ORDERED: DEXTROSE 5%-WATER - 50 ML IVPB ONE (10:03)
[2018-11-14] MEDS: HEPARIN NA (PORCINE) 5,000 UNITS/ML 1ML VIAL SQ SCH ×2 (10:06→21:09)
[2018-11-14] MEDS: CARVEDILOL 25 MG TABLET (FP) PO SCH ×2 (10:06→21:10)
[2018-11-14] MEDS: LACOSAMIDE 50 MG TABLET PO SCH ×2 (10:06→21:09)
[2018-11-14] MEDS: amLODIPine BESYLATE 10 MG TABLET (FP) PO SCH (10:06)
[2018-11-14] MEDS: CEFTRIAXONE 1 GM in DEXTROSE 5%-WATER - 50 ML IVPB SCH (10:06)
[2018-11-14] MEDS: carBAMazepine 200 MG TABLET PO SCH ×2 (10:07→21:11)
[2018-11-14] MEDS: KCL 10 MEQ IVPB 10 MEQ/100 ML INFUS.BAG IVPB SCH ×2 (10:07→11:23)
[2018-11-14] MEDS ORDERED: PT OWN MED DRAWER 7, Y5N ONE (11:46)
[2018-11-14] MEDS ORDERED: POTASSIUM CHLORIDE TABS 20 MEQ TABLET.ER (FP) PO ONE (12:00)
[2018-11-14 13:30] LABS: ANION GAP 8 MMOL/L (8-16); BLOOD UREA NITROGEN 84 mg/dL (7-18); CHLORIDE 116 mmol/L (98-107); CO2 25 mmol/L (21-32); CREATININE 2.6 mg/dL (0.55-1.3); GLUCOSE,RANDOM 127 mg/dL (74-106); MAGNESIUM 2.4 mg/dL (1.8-2.4); POTASSIUM 3.6 mmol/L (3.5-5.1); SODIUM 149 mmol/L (136-145)
--- NOTE | 2018-11-14 13:54 | PN ---
Progress Note, Physician History of Present Illness: Pt seen and examined at bedside. He is awake and alert. He denies shortness of breath. - Current Medication List Current Medications: Active Medications Acetaminophen (Tylenol -) 650 mg PO Q4H PRN PRN Reason: PAIN Last Admin: 11/13/18 15:59 Dose: 650 mg Amlodipine Besylate (Norvasc -) 10 mg PO DAILY [facility] Last Admin: 11/14/18 10:06 Dose: 10 mg Carbamazepine (Tegretol -) 400 mg PO BID [facility] Last Admin: 11/14/18 10:07 Dose: 400 mg Carvedilol (Coreg -) 25 mg PO BID [facility] Last Admin: 11/14/18 10:06 Dose: 25 mg Donepezil HCl (Aricept -) 10 mg PO HS [facility] Last Admin: 11/13/18 21:30 Dose: 10 mg Heparin Sodium (Porcine) (Heparin -) 5,000 unit SQ BID [facility] Last Admin: 11/14/18 10:06 Dose: 5,000 unit Ceftriaxone Sodium 1 gm/ (Dextrose) 50 mls @ 100 mls/hr IVPB DAILY [facility] Last Admin: 11/14/18 10:06 Dose: 100 mls/hr Insulin Aspart (Novolog Vial Sliding Scale -) 1 vial SQ TIDAC [facility]; Protocol Last Admin: 11/14/18 11:20 Dose: Not Given Insulin Detemir (Levemir Vial) 14 units SQ DAILY@0700 [facility] Last Admin: 11/14/18 06:13 Dose: 14 units Lacosamide (Vimpat -) 100 mg PO BID [facility] Last Admin: 11/14/18 10:06 Dose: 100 mg Potassium Chloride (K-Dur -) 20 meq PO DAILY [facility] Last Admin: 11/14/18 10:06 Dose: 20 meq - Objective Vital Signs: Vital Signs Temperature 100.3 F H 11/14/18 06:00 Pulse Rate 69 11/14/18 06:00 Respiratory Rate 20 11/14/18 06:00 Blood Pressure 114/59 L 11/14/18 06:00 O2 Sat by Pulse Oximetry (%) 98 11/14/18 09:00 Constitutional: Yes: Calm Eyes: Yes: Conjunctiva Clear HENT: Yes: Atraumatic Neck: Yes: Supple Cardiovascular: Yes: S1, S2 Respiratory: Yes: CTA Bilaterally Gastrointestinal: Yes: Soft Genitourinary: Yes: WNL Edema: No Neurological: Yes: Oriented Psychiatric: Yes: Oriented Labs: CBC, BMP 11/14/18 06:20 11/14/18 12:32 INR, PTT INR 1.20 (0.83-1.09) H 11/12/18 20:58 Problem List - Problems (1) RAYNE (acute kidney injury) Code(s): N17.9 - ACUTE KIDNEY FAILURE, UNSPECIFIED (2) Bilateral leg weakness Code(s): R29.898 - OTH SYMPTOMS AND SIGNS INVOLVING THE MUSCULOSKELETAL SYSTEM (3) Dementia Code(s): F03.90 - UNSPECIFIED DEMENTIA WITHOUT BEHAVIORAL DISTURBANCE (4) Epilepsy Code(s): G40.909 - EPILEPSY, UNSP, NOT INTRACTABLE, WITHOUT STATUS EPILEPTICUS (5) Fever Code(s): R50.9 - FEVER, UNSPECIFIED (6) Hypernatremia Code(s): E87.0 - HYPEROSMOLALITY AND HYPERNATREMIA (7) Weakness Code(s): R53.1 - WEAKNESS Assessment/Plan Current Medications Generic Name Dose Route Start Last Admin Trade Name Freq PRN Reason Stop Dose Admin Acetaminophen 650 mg 11/13/18 13:55 11/13/18 15:59 Tylenol - PO 650 mg Q4H PRN Administration PAIN Amlodipine Besylate 10 mg 11/13/18 10:00 11/14/18 10:06 Norvasc - PO 10 mg DAILY LO Administration Carbamazepine 400 mg 11/13/18 10:00 11/14/18 10:07 Tegretol - PO 400 mg BID LO Administration Carvedilol 25 mg 11/13/18 10:00 11/14/18 10:06 Coreg - PO 25 mg BID LO Administration Donepezil HCl 10 mg 11/13/18 22:00 11/13/18 21:30 Aricept - PO 10 mg HS LO Administration Heparin Sodium (Porcine) 5,000 unit 11/13/18 10:00 11/14/18 10:06 Heparin - SQ 5,000 unit BID LO Administration Ceftriaxone Sodium 1 gm/ 50 mls @ 100 mls/hr 11/13/18 22:30 11/14/18 10:06 Dextrose IVPB 100 mls/hr DAILY [facility] Administration Insulin Aspart 1 vial 11/13/18 16:30 11/14/18 11:20 Novolog Vial Sliding Scale - SQ Not Given TIDAC [facility] Protocol Insulin Detemir 14 units 11/13/18 14:09 11/14/18 06:13 Levemir Vial SQ 14 units DAILY@0700 [facility] Administration Lacosamide 100 mg 11/13/18 15:30 11/14/18 10:06 Vimpat - PO 100 mg BID LO Administration Potassium Chloride 20 meq 11/14/18 10:00 11/14/18 10:06 K-Dur - PO 20 meq DAILY LO Administration Laboratory Tests 11/14/18 12:32 Magnesium 2.4 Impression 1. RAYNE 2. hypernatremia 3. weakness 4. dementia 5. HTN 6. epilepsy 7. DM Plan - change fluids to d5w with potassium - monitor sodium - repeat bmp in am - replace potassium - bladder ultrasound does not show retention - repeat ua Dr Gallo
--- NOTE | 2018-11-14 14:13 | CONSULT ---
Consult Consult Specialty:: PM&R Dr Edmondson for Dr Griffin Reason for Consultation:: EMG, evaluate for neuropathy - History of Present Illness History of Present Illness: This is a 68 year old man with a medical history of possible dementia, seizures , HTN, IDDM, who presented to the ED 11/12/[address] head showed no acute pathology. Neurology was consulted, who recommended infectious work-up as per ID as well as PT, inflammatory markers and medication adjustment. Renal was consulted for RAYNE. Hospitalist was consulted for fevers. Physiatry was requested to perform EMG. 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) Cardio/Vascular: Yes: HTN - Alcohol/Substance Use Hx Alcohol Use: No - Smoking History Smoking history: Never smoked Have you smoked in the past 12 months: No Aproximately how many cigarettes per day: 0 Home Medications - Allergies Allergies/Adverse Reactions: Allergies Allergy/AdvReac Type Severity Reaction Status Date / Time No Known Allergies Allergy Verified 11/12/18 19:16 - Home Medications Home Medications: Ambulatory Orders Amlodipine Besylate [Norvasc] 10 mg PO DAILY 04/05/12 Carbamazepine [Tegretol] 400 mg PO BID 04/05/12 Carvedilol [Coreg] 25 mg PO BID 04/05/12 Furosemide [Lasix] 40 mg PO DAILY 04/05/12 Vit B1 Mn/B2/B3/B5/B6/B12/C/FA [B Complex with Vitamin C Tab] 1 each PO DAILY Donepezil HCl 10 mg PO HS 06/26/18 Insulin Glargine,Hum.rec.anlog [Lantus] 28 unit SQ DAILY 06/26/18 Lacosamide [Vimpat -] 100 mg PO BID 06/26/18 Review of Systems Findings/Remarks: Denies pain. Continually falling asleep during exam and EMG study. Physical Exam Vital Signs: Vital Signs Temperature 100.3 F H 11/14/18 06:00 Pulse Rate 69 11/14/18 06:00 Respiratory Rate 20 11/14/18 06:00 Blood Pressure 114/59 L 11/14/18 06:00 O2 Sat by Pulse Oximetry (%) 98 11/14/18 09:00 Musculoskeletal: Yes: Other (General: calm HM sitting in bed NAD, alternatively awake and alert then quickly falling asleep; had friend present who translated N /M: grossly 5/5 BUE, unable to assess ROM as he continues to fall asleep Extremities: no BUE pitting edema) Labs: CBC, BMP 11/14/18 06:20 11/14/18 12:32 Assessment/Plan Electrodiagnostics were performed, please see scan (usually under date of admission) for further details. 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 There is also evidence of a mild L carpel tunnel syndrome without evidence of B cervical radiculopathy. Impression: 1) Deficits mobility 2) Deconditioning 3) Gait abnormality 4) Peripheral neuropathy: differential diagnosis includes but is not limited to : gout, connective tissue disorders (RA, SLE), hypothyroidism, vitamin deficiencies (B12, folate, thiamine), chronic liver disease, early DM 5) Anemia 6) Undergoing infectious work-up for fevers 7) RAYNE 8) Possible dementia 9) hx seizures 10) HTN 11) IDDM 12) Overweight 13) No documented flu shot/ pneumovax Recommendations: 1) PT for stretching strengthening ROM balance and functional mobility 2) Falls, safety precautions 3) Cardiac, diabetic precautions 4) Seizure precautions 5) Monitor CBC given anemia 6) Monitor BMP given renal function 7) DVT ppx: on hep sc 8) Nutrition consult for overweight 9) Continue plan per primary team 10) Discharge planning: will likely be able to return home with services, versus short- course inpatient rehabilitation, depending on hospital course Thank you for this referral.
[2018-11-14] MEDS ORDERED: POTASSIUM CHLORIDE 20 MEQ in DEXTROSE 5%-WATER - 1,000 ML IVPB SCH (14:45)
--- NOTE | 2018-11-14 15:26 | PN ---
Progress Note (short form) - Note Progress Note: awake and alert following simple commands diarrhea has resolved Vital Signs Period Temp Pulse Resp BP Sys/Pryor Pulse Ox Last 24 Hr 98.0 F-102.7 F 69-95 20-22 102-138/51-82 96-98 cor-rrr lungs clear abd soft,nt ext no edema CBC, BMP 11/14/18 06:20 11/14/18 12:32 Microbiology 11/13/18 23:30 Stool Clostridium difficile Antigen (SPENCER) - Final 11/13/18 23:30 Stool Clostridium difficile Toxin Assay - Final 11/12/18 23:41 Urine - Urine Clean Catch Urine Culture - Final NO GROWTH OBTAINED Influenza A a/p fever-?viral, continue ceftriaxone, clinically improving will duplex legs to r/o dvt esr/crp worsening renal function- f/u per renal history dementia history seizure disorder Problem List - Problems (1) Fever Code(s): R50.9 - FEVER, UNSPECIFIED (2) RAYNE (acute kidney injury) Code(s): N17.9 - ACUTE KIDNEY FAILURE, UNSPECIFIED (3) Epilepsy Code(s): G40.909 - EPILEPSY, UNSP, NOT INTRACTABLE, WITHOUT STATUS EPILEPTICUS (4) Dementia Code(s): F03.90 - UNSPECIFIED DEMENTIA WITHOUT BEHAVIORAL DISTURBANCE
[2018-11-14 16:41] LABS: URINE APPEARANCE CLOUDY; URINE BILIRUBIN NEGATIVE (<2.0 mg/dL); URINE COLOR DKYELLOW; URINE GLUCOSE (UA) NEGATIVE (NEGATIVE); URINE KETONE NEGATIVE (NEGATIVE); URINE LEUK ESTERASE NEGATIVE (NEGATIVE); URINE NITRITE NEGATIVE (NEGATIVE); URINE PROTEIN 1+ (NEGATIVE); URINE UROBILINOGEN NEGATIVE mg/dL (0.2-1.0)
[2018-11-14 16:45] LABS: URINE BACTERIA RARE /hpf (NONE SEEN); URINE HYALINE CAST 1 /lpf; URINE MUCUS RARE
[2018-11-14] MEDS ORDERED: CEFTRIAXONE 1 GM in DEXTROSE 5%-WATER - 50 ML IVPB SCH (20:11)
[2018-11-14] MEDS: DONEPEZIL HCL 10 MG TABLET (FP) PO SCH (21:10)
[2018-11-14] MEDS: POTASSIUM CHLORIDE TABS 20 MEQ TABLET.ER (FP) PO SCH (21:10)
[2018-11-14] MEDS ORDERED: INSULIN (NOVOLOG) ASPART 100 UNITS/ML 10ML VIAL SQ ONE (21:42)
[2018-11-14] MEDS ORDERED: SODIUM PHOSPHATE/NA BIPHOS 133 ML ENEMA PR ONE (22:04)
--- NOTE | 2018-11-14 23:55 | CONSULT ---
Consult Consult Specialty:: endocrine Referred by:: sophie winter np Reason for Consultation:: dm 2 - History of Present Illness Chief Complaint: weakness and poor appetite History of Present Illness: 68 year male with history of dm 2,hypertension(on meds), insulin dependent diabetes mellitus, seizures and dementia who has had bilateral lower extremity weakness. He was seen at [facility] for similar symptoms. He had a EEG done at prior facility which was negative. He denies prior history of kidney disease. He denies dizziness, syncopy, chest pain, or shortness of breath. 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, Other (epilepsy) Cardio/Vascular: Yes: HTN - Alcohol/Substance Use Hx Alcohol Use: No - Smoking History Smoking history: Never smoked Have you smoked in the past 12 months: No Aproximately how many cigarettes per day: 0 Home Medications - Allergies Allergies/Adverse Reactions: Allergies Allergy/AdvReac Type Severity Reaction Status Date / Time No Known Allergies Allergy Verified 11/12/18 19:16 - Home Medications Home Medications: Ambulatory Orders Amlodipine Besylate [Norvasc] 10 mg PO DAILY 04/05/12 Carbamazepine [Tegretol] 400 mg PO BID 04/05/12 Carvedilol [Coreg] 25 mg PO BID 04/05/12 Furosemide [Lasix] 40 mg PO DAILY 04/05/12 Vit B1 Mn/B2/B3/B5/B6/B12/C/FA [B Complex with Vitamin C Tab] 1 each PO DAILY Donepezil HCl 10 mg PO HS 06/26/18 Insulin Glargine,Hum.rec.anlog [Lantus] 28 unit SQ DAILY 06/26/18 Lacosamide [Vimpat -] 100 mg PO BID 06/26/18 Review of Systems - Review of Systems Constitutional: reports: Lethargy, Weakness Eyes: reports: No Symptoms HENT: reports: No Symptoms Neck: reports: No Symptoms Cardiovascular: reports: Shortness of Breath Respiratory: reports: Exercise Intolerance, SOB on Exertion Gastrointestinal: reports: Abdominal Pain Breasts: reports: No Symptoms Reported Musculoskeletal: reports: Extremity Pain, Joint Swelling, Muscle Pain, Muscle Cramps, Muscle Weakness Physical Exam Vital Signs: Vital Signs Temperature 98.4 F 11/14/18 18:46 Pulse Rate 69 11/14/18 18:46 Respiratory Rate 20 11/14/18 21:00 Blood Pressure 107/60 11/14/18 18:46 O2 Sat by Pulse Oximetry (%) 98 11/14/18 21:00 Constitutional: Yes: Anxious Eyes: Yes: EOM Intact HENT: Yes: Normocephalic Neck: Yes: Trachea Midline Cardiovascular: Yes: Regular Rate and Rhythm Respiratory: Yes: CTA Bilaterally Gastrointestinal: Yes: Normal Bowel Sounds ...Rectal Exam: Yes: Deferred Musculoskeletal: Yes: Back Pain, Joint Stiffness, Joint Swelling, Muscle Weakness Edema: Yes Edema: LLE: 1+, RLE: 1+ Neurological: Yes: Alert Labs: CBC, BMP 11/14/18 06:20 11/14/18 12:32 Problem List - Problems (1) Dementia Code(s): F03.90 - UNSPECIFIED DEMENTIA WITHOUT BEHAVIORAL DISTURBANCE (2) Diabetes mellitus Code(s): E11.9 - TYPE 2 DIABETES MELLITUS WITHOUT COMPLICATIONS (3) Epilepsy Code(s): G40.909 - EPILEPSY, UNSP, NOT INTRACTABLE, WITHOUT STATUS EPILEPTICUS (4) Fever Code(s): R50.9 - FEVER, UNSPECIFIED (5) Hypernatremia Code(s): E87.0 - HYPEROSMOLALITY AND HYPERNATREMIA (6) Toxic metabolic encephalopathy Code(s): G92 - TOXIC ENCEPHALOPATHY Assessment/Plan Current Active Problems RAYNE (acute kidney injury) (Acute) Bilateral leg weakness (Acute) Dementia (Acute) Diabetes mellitus (Acute) Epilepsy (Acute) Fever (Acute) Hypernatremia (Acute) Toxic metabolic encephalopathy (Acute) Weakness (Acute) Abnormal Lab Results 11/14/18 11/14/18 11/14/18 06:20 06:20 12:32 WBC 3.6 L RBC 3.34 L Hgb 11.1 L Hct 33.0 L MCV 98.8 H Plt Count 96 L Neutrophils % 83.1 H Sodium 150 H 149 H Potassium 2.8 L* Chloride 117 H 116 H BUN 84 H 84 H Creatinine 2.7 H 2.6 H Random Glucose 170 H 127 H Calcium 8.2 L 8.0 L AST 64 H ALT 67 H Albumin 2.5 L Urine Protein Urine Blood 11/14/18 15:50 WBC RBC Hgb Hct MCV Plt Count Neutrophils % Sodium Potassium Chloride BUN Creatinine Random Glucose Calcium AST ALT Albumin Urine Protein 1+ H Urine Blood 1+ H Laboratory Results - last 24 hr 11/13/18 11/14/18 11/14/18 14:30 05:33 06:20 WBC 3.6 L RBC 3.34 L Hgb 11.1 L Hct 33.0 L MCV 98.8 H MCH 33.3 MCHC 33.7 RDW 14.2 Plt Count 96 L MPV 8.8 Absolute Neuts (auto) 3.0 Neutrophils % 83.1 H Lymphocytes % 9.3 Monocytes % 5.9 Eosinophils % 1.6 D Basophils % 0.1 Nucleated RBC % 0 Sodium Potassium Chloride Carbon Dioxide Anion Gap BUN Creatinine Creat Clearance w eGFR POC Glucometer 179 Random Glucose Calcium Magnesium Total Bilirubin AST ALT Alkaline Phosphatase Total Protein Albumin Urine Color Urine Appearance Urine pH Ur Specific [place] Urine Protein Urine Glucose (UA) Urine Ketones Urine Blood Urine Nitrite Urine Bilirubin Urine Urobilinogen Ur Leukocyte Esterase Urine WBC (Auto) Urine RBC (Auto) Urine Bacteria Hyaline Casts Urine Mucus RPR Titer Nonreactive 11/14/18 11/14/18 11/14/18 06:20 06:20 11:18 WBC RBC Hgb Hct MCV MCH MCHC RDW Plt Count MPV Absolute Neuts (auto) Neutrophils % Lymphocytes % Monocytes % Eosinophils % Basophils % Nucleated RBC % Sodium 150 H Potassium 2.8 L* Chloride 117 H Carbon Dioxide 24 Anion Gap 9 BUN 84 H Creatinine 2.7 H Creat Clearance w eGFR 23.62 POC Glucometer 133 Random Glucose 170 H Calcium 8.2 L Magnesium 2.1 Cancelled Total Bilirubin 0.4 AST 64 H ALT 67 H Alkaline Phosphatase 93 Total Protein 6.4 Albumin 2.5 L Urine Color Urine Appearance Urine pH Ur Specific [place] Urine Protein Urine Glucose (UA) Urine Ketones Urine Blood Urine Nitrite Urine Bilirubin Urine Urobilinogen Ur Leukocyte Esterase Urine WBC (Auto) Urine RBC (Auto) Urine Bacteria Hyaline Casts Urine Mucus RPR Titer 11/14/18 11/14/18 11/14/18 12:32 15:50 16:35 WBC RBC Hgb Hct MCV MCH MCHC RDW Plt Count MPV Absolute Neuts (auto) Neutrophils % Lymphocytes % Monocytes % Eosinophils % Basophils % Nucleated RBC % Sodium 149 H Potassium 3.6 Chloride 116 H Carbon Dioxide 25 Anion Gap 8 BUN 84 H Creatinine 2.6 H Creat Clearance w eGFR 24.67 POC Glucometer 134 Random Glucose 127 H Calcium 8.0 L Magnesium 2.4 Total Bilirubin AST ALT Alkaline Phosphatase Total Protein Albumin Urine Color Dkyellow Urine Appearance Cloudy Urine pH 5.0 Ur Specific [place] 1.019 Urine Protein 1+ H Urine Glucose (UA) Negative Urine Ketones Negative Urine Blood 1+ H Urine Nitrite Negative Urine Bilirubin Negative Urine Urobilinogen Negative Ur Leukocyte Esterase Negative Urine WBC (Auto) 2 Urine RBC (Auto) 4 Urine Bacteria Rare Hyaline Casts 1 Urine Mucus Rare RPR Titer 11/14/18 21:03 WBC RBC Hgb Hct MCV MCH MCHC RDW Plt Count MPV Absolute Neuts (auto) Neutrophils % Lymphocytes % Monocytes % Eosinophils % Basophils % Nucleated RBC % Sodium Potassium Chloride Carbon Dioxide Anion Gap BUN Creatinine Creat Clearance w eGFR POC Glucometer 444 Random Glucose Calcium Magnesium Total Bilirubin AST ALT Alkaline Phosphatase Total Protein Albumin Urine Color Urine Appearance Urine pH Ur Specific [place] Urine Protein Urine Glucose (UA) Urine Ketones Urine Blood Urine Nitrite Urine Bilirubin Urine Urobilinogen Ur Leukocyte Esterase Urine WBC (Auto) Urine RBC (Auto) Urine Bacteria Hyaline Casts Urine Mucus RPR Titer plan: bgm qid novolog insulin doses levemir dose titration Current Medications Generic Name Dose Route Start Last Admin Trade Name Freq PRN Reason Stop Dose Admin Acetaminophen 650 mg 11/13/18 13:55 11/13/18 15:59 Tylenol - PO 650 mg Q4H PRN Administration PAIN Amlodipine Besylate 10 mg 11/13/18 10:00 11/14/18 10:06 Norvasc - PO 10 mg DAILY LO Administration Carbamazepine 400 mg 11/13/18 10:00 11/14/18 21:11 Tegretol - PO 400 mg BID LO Administration Carvedilol 25 mg 11/13/18 10:00 11/14/18 21:10 Coreg - PO 25 mg BID LO Administration Donepezil HCl 10 mg 11/13/18 22:00 11/14/18 21:10 Aricept - PO 10 mg HS LO Administration Heparin Sodium (Porcine) 5,000 unit 11/13/18 10:00 11/14/18 21:09 Heparin - SQ 5,000 unit BID LO Administration Ceftriaxone Sodium 1 gm/ 50 mls @ 100 mls/hr 11/13/18 22:30 11/14/18 10:06 Dextrose IVPB 100 mls/hr DAILY LO Administration Potassium Chloride 20 meq/ 1,010 mls @ 42 mls/hr 11/14/18 14:45 11/14/18 15: 05 Dextrose IVPB 42 mls/hr Q24H LO Administration Insulin Aspart 1 vial 11/13/18 16:30 11/14/18 16:39 Novolog Vial Sliding Scale - SQ Not Given TIDAC [facility] Protocol Insulin Detemir 14 units 11/13/18 14:09 11/14/18 06:13 Levemir Vial SQ 14 units DAILY@0700 LO Administration Lacosamide 100 mg 11/13/18 15:30 11/14/18 21:09 Vimpat - PO 100 mg BID LO Administration Potassium Chloride 20 meq 11/14/18 22:00 11/14/18 21:10 K-Dur - PO 20 meq DAILY LO Administration
[2018-11-15] MEDS: INSULIN (LEVEMIR) 100 UNITS/ML UNITS SQ SCH (06:08)
[2018-11-15] MEDS: INSULIN SLIDING SCALE (NOVOLOG) 1 VIAL SQ SCH ×4 (06:09→21:05)
[2018-11-15 07:33] LABS: HEMOGLOBIN 11.8 GM/dL (11.7-16.9); MCH 33.2 pg (25.7-33.7); MCHC 33.8 g/dl (32.0-35.9); MEAN CELL VOLUME 98.2 fl (80-96); MEAN PLT VOLUME 9.1 fl (7.5-11.1); PLATELET COUNT 119 K/MM3 (134-434); RBC 3.56 M/mm3 (4.00-5.60); RDW 14.3 % (11.9-15.9); WHITE BLOOD COUNT 4.3 K/mm3 (4.0-10.0)
[2018-11-15 07:58] LABS: ALBUMIN 2.4 g/dl (3.4-5.0); ALK PHOS 90 U/L (45-117); ANION GAP 4 MMOL/L (8-16); BILIRUBIN,TOTAL 0.2 mg/dL (0.2-1); BLOOD UREA NITROGEN 86 mg/dL (7-18); CALCIUM 8.1 mg/dL (8.5-10.1); CHLORIDE 117 mmol/L (98-107); CO2 28 mmol/L (21-32); CREATININE 2.2 mg/dL (0.55-1.3); GLUCOSE,RANDOM 101 mg/dL (74-106); MAGNESIUM 2.5 mg/dL (1.8-2.4); POTASSIUM 3.6 mmol/L (3.5-5.1); SGOT/AST 69 U/L (15-37); SGPT/ALT 68 U/L (13-61); SODIUM 149 mmol/L (136-145); TOT PROT 6.3 g/dl (6.4-8.2)
[2018-11-15] MEDS ORDERED: cefTRIAXone SODIUM 1 GM VIAL ONE (09:03)
[2018-11-15] MEDS ORDERED: DEXTROSE 5%-WATER - 50 ML IVPB ONE (09:03)
--- NOTE | 2018-11-15 10:24 | PN ---
Progress Note, Physician - Current Medication List Current Medications: Active Medications Acetaminophen (Tylenol -) 650 mg PO Q4H PRN PRN Reason: PAIN Last Admin: 11/13/18 15:59 Dose: 650 mg Amlodipine Besylate (Norvasc -) 10 mg PO DAILY [facility] Last Admin: 11/14/18 10:06 Dose: 10 mg Carbamazepine (Tegretol -) 400 mg PO BID [facility] Last Admin: 11/14/18 21:11 Dose: 400 mg Carvedilol (Coreg -) 25 mg PO BID [facility] Last Admin: 11/14/18 21:10 Dose: 25 mg Donepezil HCl (Aricept -) 10 mg PO HS [facility] Last Admin: 11/14/18 21:10 Dose: 10 mg Heparin Sodium (Porcine) (Heparin -) 5,000 unit SQ BID [facility] Last Admin: 11/14/18 21:09 Dose: 5,000 unit Ceftriaxone Sodium 1 gm/ (Dextrose) 50 mls @ 100 mls/hr IVPB DAILY [facility] Last Admin: 11/14/18 10:06 Dose: 100 mls/hr Potassium Chloride 20 meq/ (Dextrose) 1,010 mls @ 42 mls/hr IVPB Q24H [facility] Last Admin: 11/14/18 15:05 Dose: 42 mls/hr Insulin Aspart (Novolog Vial Sliding Scale -) 1 vial SQ ACHS [facility]; Protocol Last Admin: 11/15/18 06:09 Dose: Not Given Insulin Detemir (Levemir Vial) 17 units SQ DAILY@0700 [facility] Last Admin: 11/15/18 06:08 Dose: 17 units Lacosamide (Vimpat -) 100 mg PO BID [facility] Last Admin: 11/14/18 21:09 Dose: 100 mg Potassium Chloride (K-Dur -) 20 meq PO DAILY [facility] Last Admin: 11/14/18 21:10 Dose: 20 meq - Objective Vital Signs: Vital Signs Temperature 97.8 F 11/15/18 05:49 Pulse Rate 68 11/15/18 05:49 Respiratory Rate 20 11/15/18 05:49 Blood Pressure 122/71 11/15/18 05:49 O2 Sat by Pulse Oximetry (%) 98 11/14/18 21:00 Labs: CBC, BMP 11/15/18 06:07 11/15/18 06:07 INR, PTT INR 1.20 (0.83-1.09) H 11/12/18 20:58
--- NOTE | 2018-11-15 10:37 | PN ---
Progress Note, Physician Chief Complaint: B/L LE weakness History of Present Illness: Previous notes and events reviewed awake and alert, confused NAD Vascular US neg for DVT K level wnl, elev Na 149 - Current Medication List Current Medications: Active Medications Acetaminophen (Tylenol -) 650 mg PO Q4H PRN PRN Reason: PAIN Last Admin: 11/13/18 15:59 Dose: 650 mg Amlodipine Besylate (Norvasc -) 10 mg PO DAILY [facility] Last Admin: 11/14/18 10:06 Dose: 10 mg Carbamazepine (Tegretol -) 400 mg PO BID [facility] Last Admin: 11/14/18 21:11 Dose: 400 mg Carvedilol (Coreg -) 25 mg PO BID [facility] Last Admin: 11/14/18 21:10 Dose: 25 mg Donepezil HCl (Aricept -) 10 mg PO HS [facility] Last Admin: 11/14/18 21:10 Dose: 10 mg Heparin Sodium (Porcine) (Heparin -) 5,000 unit SQ BID [facility] Last Admin: 11/14/18 21:09 Dose: 5,000 unit Ceftriaxone Sodium 1 gm/ (Dextrose) 50 mls @ 100 mls/hr IVPB DAILY [facility] Last Admin: 11/14/18 10:06 Dose: 100 mls/hr Potassium Chloride 20 meq/ (Dextrose) 1,010 mls @ 42 mls/hr IVPB Q24H [facility] Last Admin: 11/14/18 15:05 Dose: 42 mls/hr Insulin Aspart (Novolog Vial Sliding Scale -) 1 vial SQ ACHS [facility]; Protocol Last Admin: 11/15/18 06:09 Dose: Not Given Insulin Detemir (Levemir Vial) 17 units SQ DAILY@0700 [facility] Last Admin: 11/15/18 06:08 Dose: 17 units Lacosamide (Vimpat -) 100 mg PO BID [facility] Last Admin: 11/14/18 21:09 Dose: 100 mg Potassium Chloride (K-Dur -) 20 meq PO DAILY [facility] Last Admin: 11/14/18 21:10 Dose: 20 meq - Objective Vital Signs: Vital Signs Temperature 97.8 F 11/15/18 05:49 Pulse Rate 68 11/15/18 05:49 Respiratory Rate 20 11/15/18 05:49 Blood Pressure 122/71 11/15/18 05:49 O2 Sat by Pulse Oximetry (%) 98 11/14/18 21:00 Constitutional: Yes: No Distress, Calm Eyes: Yes: Conjunctiva Clear HENT: Yes: Normocephalic Neck: Yes: Supple Cardiovascular: Yes: Regular Rate and Rhythm Respiratory: Yes: Regular, CTA Bilaterally Gastrointestinal: Yes: Normal Bowel Sounds, Soft Genitourinary: Yes: Incontinence Musculoskeletal: Yes: Muscle Weakness Edema: No Neurological: Yes: Alert, Pre-Existing Deficit Psychiatric: Yes: Alert Labs: CBC, BMP 11/15/18 06:07 11/15/18 06:07 INR, PTT INR 1.20 (0.83-1.09) H 11/12/18 20:58 Microbiology 11/13/18 17:00 Blood Culture - Preliminary Blood - Peripheral Venous NO GROWTH OBTAINED AFTER 24 HOURS, INCUBATION TO CONTINUE FOR 4 DAYS. 11/13/18 16:30 Blood Culture - Preliminary Blood - Peripheral Venous NO GROWTH OBTAINED AFTER 24 HOURS, INCUBATION TO CONTINUE FOR 4 DAYS. 11/13/18 23:30 Clostridium difficile Antigen (SPENCER) - Final Stool Clostridium difficile Toxin Assay - Final 11/12/18 23:41 Urine Culture - Final Urine - Urine Clean Catch NO GROWTH OBTAINED Problem List - Problems (1) RAYNE (acute kidney injury) Assessment/Plan: -BUN/Cr 86/2.2 -renal on board -cont with D5W + KCl 20mEq -cont to monitor renal function -abd US show bilateral renal sinus lipomatosis with cortical thinning and increased echotexture, cannot rule out chronic medical renal disease Code(s): N17.9 - ACUTE KIDNEY FAILURE, UNSPECIFIED (2) Bilateral leg weakness Assessment/Plan: -neurology on board -PT -fall precautions -SNF for discharge for rehab Code(s): R29.898 - OTH SYMPTOMS AND SIGNS INVOLVING THE MUSCULOSKELETAL SYSTEM (3) Dementia Assessment/Plan: -neurology on board -continue with Donepazil 10mg hs Code(s): F03.90 - UNSPECIFIED DEMENTIA WITHOUT BEHAVIORAL DISTURBANCE (4) Diabetes mellitus Assessment/Plan: -BGM ACHS, ISS -diabetic diet -levemir daily -endo on board -HgA1c 7.0% Code(s): E11.9 - TYPE 2 DIABETES MELLITUS WITHOUT COMPLICATIONS (5) Hypernatremia Assessment/Plan: -Na 149 -continue to monitor Na level -renal on board Code(s): E87.0 - HYPEROSMOLALITY AND HYPERNATREMIA (6) Toxic metabolic encephalopathy Assessment/Plan: -ID on board -cont IV ceftriaxone -BC neg -afebrile, no leukocytosis Code(s): G92 - TOXIC ENCEPHALOPATHY (7) Epilepsy Assessment/Plan: -cont tegretol and vimpat -neurology on board -seizure precautions Code(s): G40.909 - EPILEPSY, UNSP, NOT INTRACTABLE, WITHOUT STATUS EPILEPTICUS
[2018-11-15] MEDS: LACOSAMIDE 50 MG TABLET PO SCH ×2 (10:40→21:05)
[2018-11-15] MEDS: carBAMazepine 200 MG TABLET PO SCH ×2 (10:40→21:05)
[2018-11-15] MEDS: CEFTRIAXONE 1 GM in DEXTROSE 5%-WATER - 50 ML IVPB SCH (10:40)
[2018-11-15] MEDS: POTASSIUM CHLORIDE TABS 20 MEQ TABLET.ER (FP) PO SCH (10:42)
[2018-11-15] MEDS: amLODIPine BESYLATE 10 MG TABLET (FP) PO SCH (10:42)
[2018-11-15] MEDS: HEPARIN NA (PORCINE) 5,000 UNITS/ML 1ML VIAL SQ SCH ×2 (10:42→21:05)
[2018-11-15] MEDS: CARVEDILOL 25 MG TABLET (FP) PO SCH ×2 (10:42→21:05)
--- NOTE | 2018-11-15 12:50 | PN ---
Progress Note, Physician History of Present Illness: Pt seen and examined at bedside. He is awake and appears comfortable. He denies shortness of breath. - Current Medication List Current Medications: Active Medications Acetaminophen (Tylenol -) 650 mg PO Q4H PRN PRN Reason: PAIN Last Admin: 11/13/18 15:59 Dose: 650 mg Amlodipine Besylate (Norvasc -) 10 mg PO DAILY [facility] Last Admin: 11/15/18 10:42 Dose: 10 mg Carbamazepine (Tegretol -) 400 mg PO BID [facility] Last Admin: 11/15/18 10:40 Dose: 400 mg Carvedilol (Coreg -) 25 mg PO BID [facility] Last Admin: 11/15/18 10:42 Dose: 25 mg Donepezil HCl (Aricept -) 10 mg PO HS [facility] Last Admin: 11/14/18 21:10 Dose: 10 mg Heparin Sodium (Porcine) (Heparin -) 5,000 unit SQ BID [facility] Last Admin: 11/15/18 10:42 Dose: 5,000 unit Ceftriaxone Sodium 1 gm/ (Dextrose) 50 mls @ 100 mls/hr IVPB DAILY [facility] Last Admin: 11/15/18 10:40 Dose: 100 mls/hr Potassium Chloride 20 meq/ (Dextrose) 1,010 mls @ 42 mls/hr IVPB Q24H [facility] Last Admin: 11/14/18 15:05 Dose: 42 mls/hr Insulin Aspart (Novolog Vial Sliding Scale -) 1 vial SQ ACHS [facility]; Protocol Last Admin: 11/15/18 11:29 Dose: 3 units Insulin Detemir (Levemir Vial) 17 units SQ DAILY@0700 [facility] Last Admin: 11/15/18 06:08 Dose: 17 units Lacosamide (Vimpat -) 100 mg PO BID [facility] Last Admin: 11/15/18 10:40 Dose: 100 mg Potassium Chloride (K-Dur -) 20 meq PO DAILY [facility] Last Admin: 11/15/18 10:42 Dose: 20 meq - Objective Vital Signs: Vital Signs Temperature 97.8 F 11/15/18 05:49 Pulse Rate 68 11/15/18 05:49 Respiratory Rate 20 11/15/18 05:49 Blood Pressure 122/71 11/15/18 05:49 O2 Sat by Pulse Oximetry (%) 98 11/14/18 21:00 Constitutional: Yes: Calm Eyes: Yes: Conjunctiva Clear HENT: Yes: Atraumatic Cardiovascular: Yes: S1, S2 Respiratory: Yes: CTA Bilaterally Gastrointestinal: Yes: Soft Genitourinary: Yes: WNL Musculoskeletal: Yes: WNL Edema: No Neurological: Yes: Oriented Psychiatric: Yes: Oriented Labs: CBC, BMP 11/15/18 06:07 11/15/18 06:07 INR, PTT INR 1.20 (0.83-1.09) H 11/12/18 20:58 Problem List - Problems (1) RAYNE (acute kidney injury) Code(s): N17.9 - ACUTE KIDNEY FAILURE, UNSPECIFIED (2) Bilateral leg weakness Code(s): R29.898 - OTH SYMPTOMS AND SIGNS INVOLVING THE MUSCULOSKELETAL SYSTEM (3) Dementia Code(s): F03.90 - UNSPECIFIED DEMENTIA WITHOUT BEHAVIORAL DISTURBANCE (4) Epilepsy Code(s): G40.909 - EPILEPSY, UNSP, NOT INTRACTABLE, WITHOUT STATUS EPILEPTICUS (5) Fever Code(s): R50.9 - FEVER, UNSPECIFIED (6) Hypernatremia Code(s): E87.0 - HYPEROSMOLALITY AND HYPERNATREMIA (7) Weakness Code(s): R53.1 - WEAKNESS Assessment/Plan Current Medications Generic Name Dose Route Start Last Admin Trade Name Frankq PRN Reason Stop Dose Admin Acetaminophen 650 mg 11/13/18 13:55 11/13/18 15:59 Tylenol - PO 650 mg Q4H PRN Administration PAIN Amlodipine Besylate 10 mg 11/13/18 10:00 11/15/18 10:42 Norvasc - PO 10 mg DAILY LO Administration Carbamazepine 400 mg 11/13/18 10:00 11/15/18 10:40 Tegretol - PO 400 mg BID LO Administration Carvedilol 25 mg 11/13/18 10:00 11/15/18 10:42 Coreg - PO 25 mg BID LO Administration Donepezil HCl 10 mg 11/13/18 22:00 11/14/18 21:10 Aricept - PO 10 mg HS LO Administration Heparin Sodium (Porcine) 5,000 unit 11/13/18 10:00 11/15/18 10:42 Heparin - SQ 5,000 unit BID LO Administration Ceftriaxone Sodium 1 gm/ 50 mls @ 100 mls/hr 11/13/18 22:30 11/15/18 10:40 Dextrose IVPB 100 mls/hr DAILY LO Administration Potassium Chloride 20 meq/ 1,010 mls @ 42 mls/hr 11/14/18 14:45 11/14/18 15: 05 Dextrose IVPB 42 mls/hr Q24H LO Administration Insulin Aspart 1 vial 11/15/18 07:00 11/15/18 11:29 Novolog Vial Sliding Scale - SQ 3 units ACHS LO Administration Protocol Insulin Detemir 17 units 11/15/18 07:00 11/15/18 06:08 Levemir Vial SQ 17 units DAILY@0700 LO Administration Lacosamide 100 mg 11/13/18 15:30 11/15/18 10:40 Vimpat - PO 100 mg BID OL Administration Potassium Chloride 20 meq 11/14/18 22:00 11/15/18 10:42 K-Dur - PO 20 meq DAILY LO Administration Impression 1. RAYNE 2. hypernatremia 3. weakness 4. dementia 5. HTN 6. epilepsy 7. DM Plan - cont d5w - repeat labs in am - renal function improving - monitor sodium - follow repeat ua Dr Gallo
--- NOTE | 2018-11-15 12:55 | PN ---
Progress Note (short form) - Note Progress Note: NEUROLOGY PROGRESS NOTE: Events reviewed and discussed with staff. Venous doppler B/L LE performed and unremarkable. 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 There is also evidence of a mild L carpel tunnel syndrome without evidence of cervical radiculopathy. Reporting pain in the L wrist and hand. Remains on ceftriaxone and now afebrile. A1c 7.0 CRP 16.4 ESR 74 CK 123 BUN/CR 86/2.2 Na 149 MCV 101 EXAM: Reduced neck ROM. Kernig's -. In diaper. NEURO: Awake alert. Oriented to name and [place]. No month, year or president. Follows some commands in Italian. Sparse speech CN II-XII: EOMI without nystagmus. Ptosis of L lid with preserved strength. Gag OK Motor: Limited elevation and grasp of L hand d/t pain.Cogwheeling present R >L. Decreased PAULINA. Cross adduction at knees. 4-/5 R PF. Both AJ's absent. Coord: No obvious FTN dystaxia Sensory: Decreased vibration in toes. Coordination: difficulty raising from seated position. R steppage gait. Shuffling. IMP: 1. Moderately severe, B/L cerebral dysfunction (OMS, Chronic) 2. Right cerebral accentuation with Extensive CT changes of old trauma vs. Old stroke 3. EMG/NCS c/w Diabetic peripheral neuropathy. 5. Seizure disorder. Probable Complex partial seizures by description and CT changes. 5. Worsening due to Toxic-metabolic Encephalopathy probably due to infection. SUGGEST: Continue abx and ID workup Continue lacosamide 100 mg BID and Carbamazepine 400 mg BID Mobilize PT with bedside PT, then OO Bed to chair Add Fe++, Iron, TIBC, Ferritin, Folate, LUIS ANTONIO, Uric acid Continue Donepezil 10 mg q AM for now. Thank you very much, Miguel Cao MD
[2018-11-15 13:34] LABS: URINE APPEARANCE CLEAR; URINE BILIRUBIN NEGATIVE (<2.0 mg/dL); URINE COLOR YELLOW; URINE GLUCOSE (UA) NEGATIVE (NEGATIVE); URINE KETONE NEGATIVE (NEGATIVE); URINE LEUK ESTERASE NEGATIVE (NEGATIVE); URINE NITRITE NEGATIVE (NEGATIVE); URINE PROTEIN 1+ (NEGATIVE); URINE UROBILINOGEN NEGATIVE mg/dL (0.2-1.0)
[2018-11-15] MEDS: POTASSIUM CHLORIDE 20 MEQ in DEXTROSE 5%-WATER - 1,000 ML IVPB SCH (14:03)
[2018-11-15 14:05] LABS: URINE BACTERIA MODERATE /hpf (NONE SEEN); URINE HYALINE CAST 3 /lpf; URINE MUCUS RARE
[2018-11-15] MEDS ORDERED: INSULIN (NOVOLOG) ASPART 100 UNITS/ML 10ML VIAL ONE (16:23)
--- NOTE | 2018-11-15 17:28 | PN ---
Progress Note (short form) - Note Progress Note: awake and alert following simple commands no more fevers Vital Signs Period Temp Pulse Resp BP Sys/Pryor Pulse Ox Last 24 Hr 97.9 F-98.5 F 66-71 18-20 110-127/56-76 95-96 cor-rrr lungs clear abd soft,nt ext no edema CBC, BMP 11/16/18 06:00 11/16/18 06:00 Microbiology 11/13/18 17:00 Blood - Peripheral Venous Blood Culture - Preliminary NO GROWTH OBTAINED AFTER 48 HOURS, INCUBATION TO CONTINUE FOR 3 DAYS. 11/13/18 16:30 Blood - Peripheral Venous Blood Culture - Preliminary NO GROWTH OBTAINED AFTER 48 HOURS, INCUBATION TO CONTINUE FOR 3 DAYS. 11/13/18 23:30 Stool Clostridium difficile Antigen (SPENCER) - Final 11/13/18 23:30 Stool Clostridium difficile Toxin Assay - Final 11/12/18 23:41 Urine - Urine Clean Catch Urine Culture - Final NO GROWTH OBTAINED Influenza A negative duplex negative DVT a/p fever-?viral, continue ceftriaxone, clinically improving rayne/ckd-per renal-improving history dementia history seizure disorder Problem List - Problems (1) Fever Code(s): R50.9 - FEVER, UNSPECIFIED (2) RAYNE (acute kidney injury) Code(s): N17.9 - ACUTE KIDNEY FAILURE, UNSPECIFIED (3) Epilepsy Code(s): G40.909 - EPILEPSY, UNSP, NOT INTRACTABLE, WITHOUT STATUS EPILEPTICUS (4) Dementia Code(s): F03.90 - UNSPECIFIED DEMENTIA WITHOUT BEHAVIORAL DISTURBANCE
[2018-11-15] MEDS ORDERED: PT OWN MED DRAWER 7, Y5N ONE (20:08)
[2018-11-15] MEDS: DONEPEZIL HCL 10 MG TABLET (FP) PO SCH (21:04)
[2018-11-16] MEDS ORDERED: PT OWN MED DRAWER 7, Y5N ONE ×2 (05:33→21:05)
[2018-11-16] MEDS: POTASSIUM CHLORIDE 20 MEQ in DEXTROSE 5%-WATER - 1,000 ML IVPB SCH ×2 (05:36→15:37)
[2018-11-16] MEDS: INSULIN SLIDING SCALE (NOVOLOG) 1 VIAL SQ SCH ×4 (06:54→21:36)
[2018-11-16] MEDS: INSULIN (LEVEMIR) 100 UNITS/ML UNITS SQ SCH (06:55)
[2018-11-16 07:48] LABS: BASO % 0.3 % (0-2.0); EOS % 6.6 % (0-4.5); HEMATOCRIT 32.6 % (35.4-49); HEMOGLOBIN 11.1 GM/dL (11.7-16.9); LYMPH % 24.3 % (8-40); MCH 33.1 pg (25.7-33.7); MCHC 33.9 g/dl (32.0-35.9); MEAN CELL VOLUME 97.6 fl (80-96); MEAN PLT VOLUME 8.7 fl (7.5-11.1); MONO % 7.7 % (3.8-10.2); NEUT % 61.1 % (42.8-82.8); PLATELET COUNT 119 K/MM3 (134-434); RBC 3.34 M/mm3 (4.00-5.60); RDW 14.2 % (11.9-15.9); WHITE BLOOD COUNT 3.4 K/mm3 (4.0-10.0)
[2018-11-16 08:07] LABS: SERUM IRON SATURATION 37 % (15-55); TOTAL IRON BINDING CAPACITY 122 ug/dL (250-450); UIBC 77 ug/dL (111-343)
[2018-11-16 08:23] LABS: ALBUMIN 2.3 g/dl (3.4-5.0); ALK PHOS 87 U/L (45-117); ANION GAP 5 MMOL/L (8-16); BILIRUBIN,TOTAL 0.2 mg/dL (0.2-1); BLOOD UREA NITROGEN 62 mg/dL (7-18); CALCIUM 8.1 mg/dL (8.5-10.1); CHLORIDE 118 mmol/L (98-107); CO2 26 mmol/L (21-32); CREATININE 1.6 mg/dL (0.55-1.3); GLUCOSE,RANDOM 171 mg/dL (74-106); POTASSIUM 4.2 mmol/L (3.5-5.1); SGOT/AST 70 U/L (15-37); SGPT/ALT 66 U/L (13-61); SODIUM 149 mmol/L (136-145); TOT PROT 6.1 g/dl (6.4-8.2); URIC ACID 10.4 mg/dL (2.6-7.2)
[2018-11-16] MEDS ORDERED: cefTRIAXone SODIUM 1 GM VIAL ONE (09:05)
[2018-11-16] MEDS ORDERED: DEXTROSE 5%-WATER - 50 ML IVPB ONE (09:05)
[2018-11-16] MEDS: CEFTRIAXONE 1 GM in DEXTROSE 5%-WATER - 50 ML IVPB SCH (09:30)
[2018-11-16] MEDS: CARVEDILOL 25 MG TABLET (FP) PO SCH ×2 (09:31→21:35)
[2018-11-16] MEDS: POTASSIUM CHLORIDE TABS 20 MEQ TABLET.ER (FP) PO SCH (09:31)
[2018-11-16] MEDS: LACOSAMIDE 50 MG TABLET PO SCH ×2 (09:31→21:37)
[2018-11-16] MEDS: amLODIPine BESYLATE 10 MG TABLET (FP) PO SCH (09:31)
[2018-11-16] MEDS: HEPARIN NA (PORCINE) 5,000 UNITS/ML 1ML VIAL SQ SCH ×2 (09:32→21:36)
[2018-11-16] MEDS: carBAMazepine 200 MG TABLET PO SCH ×2 (09:32→21:36)
--- NOTE | 2018-11-16 15:17 | PN ---
Progress Note, Physician History of Present Illness: Pt seen and examined at bedside. He is awake and alert. He denies shortness of breath. PO intake is improved. - Current Medication List Current Medications: Active Medications Acetaminophen (Tylenol -) 650 mg PO Q4H PRN PRN Reason: PAIN Last Admin: 11/13/18 15:59 Dose: 650 mg Amlodipine Besylate (Norvasc -) 10 mg PO DAILY [facility] Last Admin: 11/16/18 09:31 Dose: 10 mg Carbamazepine (Tegretol -) 400 mg PO BID [facility] Last Admin: 11/16/18 09:32 Dose: 400 mg Carvedilol (Coreg -) 25 mg PO BID [facility] Last Admin: 11/16/18 09:31 Dose: 25 mg Donepezil HCl (Aricept -) 10 mg PO HS [facility] Last Admin: 11/15/18 21:04 Dose: 10 mg Heparin Sodium (Porcine) (Heparin -) 5,000 unit SQ BID [facility] Last Admin: 11/16/18 09:32 Dose: 5,000 unit Ceftriaxone Sodium 1 gm/ (Dextrose) 50 mls @ 100 mls/hr IVPB DAILY [facility] Last Admin: 11/16/18 09:30 Dose: 100 mls/hr Potassium Chloride 20 meq/ (Dextrose) 1,010 mls @ 60 mls/hr IVPB Q16H [facility] Last Admin: 11/16/18 05:36 Dose: 60 mls/hr Insulin Aspart (Novolog Vial Sliding Scale -) 1 vial SQ ACHS [facility]; Protocol Last Admin: 11/16/18 11:25 Dose: Not Given Insulin Detemir (Levemir Vial) 17 units SQ DAILY@0700 [facility] Last Admin: 11/16/18 06:55 Dose: 17 units Lacosamide (Vimpat -) 100 mg PO BID [facility] Last Admin: 11/16/18 09:31 Dose: 100 mg Potassium Chloride (K-Dur -) 20 meq PO DAILY [facility] Last Admin: 11/16/18 09:31 Dose: 20 meq - Objective Vital Signs: Vital Signs Temperature 98.2 F 11/16/18 15:11 Pulse Rate 69 11/16/18 15:11 Respiratory Rate 20 11/16/18 15:11 Blood Pressure 124/62 11/16/18 15:11 O2 Sat by Pulse Oximetry (%) 95 11/16/18 09:00 Constitutional: Yes: Calm Eyes: Yes: Conjunctiva Clear HENT: Yes: Atraumatic Neck: Yes: Supple Cardiovascular: Yes: S1, S2 Respiratory: Yes: CTA Bilaterally Gastrointestinal: Yes: Normal Bowel Sounds, Soft Genitourinary: Yes: WNL Musculoskeletal: Yes: WNL Edema: No Neurological: Yes: Oriented Psychiatric: Yes: Oriented Labs: CBC, BMP 11/16/18 06:00 11/16/18 06:00 INR, PTT INR 1.20 (0.83-1.09) H 11/12/18 20:58 Problem List - Problems (1) RAYNE (acute kidney injury) Code(s): N17.9 - ACUTE KIDNEY FAILURE, UNSPECIFIED (2) Bilateral leg weakness Code(s): R29.898 - OTH SYMPTOMS AND SIGNS INVOLVING THE MUSCULOSKELETAL SYSTEM (3) Dementia Code(s): F03.90 - UNSPECIFIED DEMENTIA WITHOUT BEHAVIORAL DISTURBANCE (4) Epilepsy Code(s): G40.909 - EPILEPSY, UNSP, NOT INTRACTABLE, WITHOUT STATUS EPILEPTICUS (5) Fever Code(s): R50.9 - FEVER, UNSPECIFIED (6) Hypernatremia Code(s): E87.0 - HYPEROSMOLALITY AND HYPERNATREMIA (7) Weakness Code(s): R53.1 - WEAKNESS Assessment/Plan Current Medications Generic Name Dose Route Start Last Admin Trade Name Freq PRN Reason Stop Dose Admin Acetaminophen 650 mg 11/13/18 13:55 11/13/18 15:59 Tylenol - PO 650 mg Q4H PRN Administration PAIN Amlodipine Besylate 10 mg 11/13/18 10:00 11/16/18 09:31 Norvasc - PO 10 mg DAILY LO Administration Carbamazepine 400 mg 11/13/18 10:00 11/16/18 09:32 Tegretol - PO 400 mg BID LO Administration Carvedilol 25 mg 11/13/18 10:00 11/16/18 09:31 Coreg - PO 25 mg BID LO Administration Donepezil HCl 10 mg 11/13/18 22:00 11/15/18 21:04 Aricept - PO 10 mg HS LO Administration Heparin Sodium (Porcine) 5,000 unit 11/13/18 10:00 11/16/18 09:32 Heparin - SQ 5,000 unit BID LO Administration Ceftriaxone Sodium 1 gm/ 50 mls @ 100 mls/hr 11/13/18 22:30 11/16/18 09:30 Dextrose IVPB 100 mls/hr DAILY LO Administration Potassium Chloride 20 meq/ 1,010 mls @ 60 mls/hr 11/15/18 13:30 11/16/18 05: 36 Dextrose IVPB 60 mls/hr Q16H LO Administration Insulin Aspart 1 vial 11/15/18 07:00 11/16/18 11:25 Novolog Vial Sliding Scale - SQ Not Given ACHS [facility] Protocol Insulin Detemir 17 units 11/15/18 07:00 11/16/18 06:55 Levemir Vial SQ 17 units DAILY@0700 LO Administration Lacosamide 100 mg 11/13/18 15:30 11/16/18 09:31 Vimpat - PO 100 mg BID LO Administration Potassium Chloride 20 meq 11/14/18 22:00 11/16/18 09:31 K-Dur - PO 20 meq DAILY LO Administration Laboratory Tests 11/16/18 06:00 LUIS ANTONIO Screen Pending Impression 1. RAYNE 2. hypernatremia 3. weakness 4. dementia 5. HTN 6. epilepsy 7. DM Plan - renal function is improving - potassium improved - sodium remains elevated - cont d5w - encourage free water intake Dr Gallo
--- NOTE | 2018-11-16 15:59 | PN ---
Progress Note, Physician Chief Complaint: B/L LE weakness History of Present Illness: Previous notes and events reviewed awake and alert, confused NAD Vascular US neg for DVT Na level 149 - Current Medication List Current Medications: Active Medications Acetaminophen (Tylenol -) 650 mg PO Q4H PRN PRN Reason: PAIN Last Admin: 11/13/18 15:59 Dose: 650 mg Amlodipine Besylate (Norvasc -) 10 mg PO DAILY [facility] Last Admin: 11/16/18 09:31 Dose: 10 mg Carbamazepine (Tegretol -) 400 mg PO BID [facility] Last Admin: 11/16/18 09:32 Dose: 400 mg Carvedilol (Coreg -) 25 mg PO BID [facility] Last Admin: 11/16/18 09:31 Dose: 25 mg Donepezil HCl (Aricept -) 10 mg PO HS [facility] Last Admin: 11/15/18 21:04 Dose: 10 mg Heparin Sodium (Porcine) (Heparin -) 5,000 unit SQ BID [facility] Last Admin: 11/16/18 09:32 Dose: 5,000 unit Ceftriaxone Sodium 1 gm/ (Dextrose) 50 mls @ 100 mls/hr IVPB DAILY [facility] Last Admin: 11/16/18 09:30 Dose: 100 mls/hr Potassium Chloride 20 meq/ (Dextrose) 1,010 mls @ 70 mls/hr IVPB Q14H [facility] Last Admin: 11/16/18 15:37 Dose: Not Given Insulin Aspart (Novolog Vial Sliding Scale -) 1 vial SQ ACHS [facility]; Protocol Last Admin: 11/16/18 11:25 Dose: Not Given Insulin Detemir (Levemir Vial) 17 units SQ DAILY@0700 [facility] Last Admin: 11/16/18 06:55 Dose: 17 units Lacosamide (Vimpat -) 100 mg PO BID [facility] Last Admin: 11/16/18 09:31 Dose: 100 mg - Objective Vital Signs: Vital Signs Temperature 98.2 F 11/16/18 15:11 Pulse Rate 69 11/16/18 15:11 Respiratory Rate 20 11/16/18 15:11 Blood Pressure 124/62 11/16/18 15:11 O2 Sat by Pulse Oximetry (%) 95 11/16/18 09:00 Constitutional: Yes: No Distress, Calm Eyes: Yes: Conjunctiva Clear HENT: Yes: Normocephalic Neck: Yes: Supple Cardiovascular: Yes: Regular Rate and Rhythm Respiratory: Yes: Regular, CTA Bilaterally Gastrointestinal: Yes: Normal Bowel Sounds, Soft Genitourinary: Yes: Incontinence Musculoskeletal: Yes: Muscle Weakness Extremities: Yes: WNL Edema: No Neurological: Yes: Alert, Pre-Existing Deficit Psychiatric: Yes: Alert Labs: CBC, BMP 11/16/18 06:00 11/16/18 06:00 INR, PTT INR 1.20 (0.83-1.09) H 11/12/18 20:58 Microbiology 11/13/18 17:00 Blood - Peripheral Venous Blood Culture - Preliminary NO GROWTH OBTAINED AFTER 48 HOURS, INCUBATION TO CONTINUE FOR 3 DAYS. 11/13/18 16:30 Blood - Peripheral Venous Blood Culture - Preliminary NO GROWTH OBTAINED AFTER 48 HOURS, INCUBATION TO CONTINUE FOR 3 DAYS. Problem List - Problems (1) RAYNE (acute kidney injury) Assessment/Plan: -BUN/Cr 62/1.6 -renal on board -cont with D5W + KCl 20mEq -cont to monitor renal function -abd US show bilateral renal sinus lipomatosis with cortical thinning and increased echotexture, cannot rule out chronic medical renal disease Code(s): N17.9 - ACUTE KIDNEY FAILURE, UNSPECIFIED (2) Bilateral leg weakness Assessment/Plan: -neurology on board -PT -fall precautions -SNF for discharge for rehab Code(s): R29.898 - OT SYMPTOMS AND SIGNS INVOLVING THE MUSCULOSKELETAL SYSTEM (3) Dementia Assessment/Plan: -neurology on board -continue with Donepazil 10mg hs Code(s): F03.90 - UNSPECIFIED DEMENTIA WITHOUT BEHAVIORAL DISTURBANCE (4) Diabetes mellitus Assessment/Plan: -BGM ACHS, ISS -diabetic diet -levemir daily -endo on board -HgA1c 7.0% Code(s): E11.9 - TYPE 2 DIABETES MELLITUS WITHOUT COMPLICATIONS (5) Hypernatremia Assessment/Plan: -Na 149 -continue to monitor Na level -renal on board Code(s): E87.0 - HYPEROSMOLALITY AND HYPERNATREMIA (6) Toxic metabolic encephalopathy Assessment/Plan: -ID on board -cont IV ceftriaxone -BC neg -afebrile, no leukocytosis Code(s): G92 - TOXIC ENCEPHALOPATHY (7) Epilepsy Assessment/Plan: -cont tegretol and vimpat -neurology on board -seizure precautions Code(s): G40.909 - EPILEPSY, UNSP, NOT INTRACTABLE, WITHOUT STATUS EPILEPTICUS
[2018-11-16] MEDS: DONEPEZIL HCL 10 MG TABLET (FP) PO SCH (21:35)
[2018-11-17] MEDS: POTASSIUM CHLORIDE 20 MEQ in DEXTROSE 5%-WATER - 1,000 ML IVPB SCH ×2 (06:14→13:20)
[2018-11-17] MEDS: INSULIN SLIDING SCALE (NOVOLOG) 1 VIAL SQ SCH ×4 (06:20→22:28)
[2018-11-17] MEDS: INSULIN (LEVEMIR) 100 UNITS/ML UNITS SQ SCH (06:21)
[2018-11-17 09:26] LABS: HEMATOCRIT 34.5 % (35.4-49); HEMOGLOBIN 11.5 GM/dL (11.7-16.9); MCH 32.8 pg (25.7-33.7); MCHC 33.3 g/dl (32.0-35.9); MEAN CELL VOLUME 98.4 fl (80-96); MEAN PLT VOLUME 8.4 fl (7.5-11.1); PLATELET COUNT 137 K/MM3 (134-434); RDW 14.2 % (11.9-15.9); WHITE BLOOD COUNT 3.8 K/mm3 (4.0-10.0)
[2018-11-17] MEDS ORDERED: cefTRIAXone SODIUM 1 GM VIAL ONE (10:02)
[2018-11-17] MEDS ORDERED: DEXTROSE 5%-WATER - 50 ML IVPB ONE (10:02)
--- NOTE | 2018-11-17 10:15 | PN ---
Progress Note, Physician Chief Complaint: B/L LE weakness History of Present Illness: Previous notes and events reviewed awake and alert, confused NAD patient denies chest pain, SOB Na level 149 - Current Medication List Current Medications: Active Medications Acetaminophen (Tylenol -) 650 mg PO Q4H PRN PRN Reason: PAIN Last Admin: 11/13/18 15:59 Dose: 650 mg Amlodipine Besylate (Norvasc -) 10 mg PO DAILY [facility] Last Admin: 11/16/18 09:31 Dose: 10 mg Carbamazepine (Tegretol -) 400 mg PO BID [facility] Last Admin: 11/16/18 21:36 Dose: 400 mg Carvedilol (Coreg -) 25 mg PO BID [facility] Last Admin: 11/16/18 21:35 Dose: 25 mg Donepezil HCl (Aricept -) 10 mg PO HS [facility] Last Admin: 11/16/18 21:35 Dose: 10 mg Heparin Sodium (Porcine) (Heparin -) 5,000 unit SQ BID [facility] Last Admin: 11/16/18 21:36 Dose: 5,000 unit Ceftriaxone Sodium 1 gm/ (Dextrose) 50 mls @ 100 mls/hr IVPB DAILY [facility] Last Admin: 11/16/18 09:30 Dose: 100 mls/hr Potassium Chloride 20 meq/ (Dextrose) 1,010 mls @ 70 mls/hr IVPB Q14H [facility] Last Admin: 11/17/18 06:14 Dose: 70 mls/hr Insulin Aspart (Novolog Vial Sliding Scale -) 1 vial SQ ACHS [facility]; Protocol Last Admin: 11/17/18 06:20 Dose: Not Given Insulin Detemir (Levemir Vial) 17 units SQ DAILY@0700 [facility] Last Admin: 11/17/18 06:21 Dose: 17 units Lacosamide (Vimpat -) 100 mg PO BID [facility] Last Admin: 11/16/18 21:37 Dose: 100 mg - Objective Vital Signs: Vital Signs Temperature 98 F 11/17/18 06:30 Pulse Rate 71 11/17/18 06:30 Respiratory Rate 20 11/17/18 06:30 Blood Pressure 118/69 11/17/18 06:30 O2 Sat by Pulse Oximetry (%) 97 11/16/18 21:00 Constitutional: Yes: No Distress, Calm Eyes: Yes: Conjunctiva Clear HENT: Yes: Normocephalic Neck: Yes: Supple Cardiovascular: Yes: Regular Rate and Rhythm Respiratory: Yes: Regular, CTA Bilaterally Gastrointestinal: Yes: Normal Bowel Sounds, Soft Genitourinary: Yes: Incontinence Musculoskeletal: Yes: Muscle Weakness Extremities: Yes: WNL Edema: No Neurological: Yes: Alert, Oriented Psychiatric: Yes: Alert, Oriented Labs: CBC, BMP 11/17/18 08:31 INR, PTT INR 1.20 (0.83-1.09) H 11/12/18 20:58 Microbiology 11/13/18 17:00 Blood - Peripheral Venous Blood Culture - Preliminary NO GROWTH OBTAINED AFTER 72 HOURS, INCUBATION TO CONTINUE FOR 2 DAYS. 11/13/18 16:30 Blood - Peripheral Venous Blood Culture - Preliminary NO GROWTH OBTAINED AFTER 72 HOURS, INCUBATION TO CONTINUE FOR 2 DAYS. Problem List - Problems (1) RAYNE (acute kidney injury) Assessment/Plan: -BUN/Cr 62/1.6, todays results pending -renal on board -cont with D5W + KCl 20mEq -cont to monitor renal function -abd US show bilateral renal sinus lipomatosis with cortical thinning and increased echotexture, cannot rule out chronic medical renal disease Code(s): N17.9 - ACUTE KIDNEY FAILURE, UNSPECIFIED (2) Bilateral leg weakness Assessment/Plan: -neurology on board -PT -fall precautions -SNF for discharge for rehab when renal function improves Code(s): R29.898 - OTH SYMPTOMS AND SIGNS INVOLVING THE MUSCULOSKELETAL SYSTEM (3) Dementia Assessment/Plan: -neurology on board -continue with Donepazil 10mg hs Code(s): F03.90 - UNSPECIFIED DEMENTIA WITHOUT BEHAVIORAL DISTURBANCE (4) Diabetes mellitus Assessment/Plan: -BGM ACHS, ISS -diabetic diet -levemir daily -endo on board -HgA1c 7.0% Code(s): E11.9 - TYPE 2 DIABETES MELLITUS WITHOUT COMPLICATIONS (5) Hypernatremia Assessment/Plan: -Na 149, pending today results -continue to monitor Na level -renal on board Code(s): E87.0 - HYPEROSMOLALITY AND HYPERNATREMIA (6) Toxic metabolic encephalopathy Assessment/Plan: -ID on board -cont IV ceftriaxone -BC neg -afebrile, no leukocytosis Code(s): G92 - TOXIC ENCEPHALOPATHY (7) Epilepsy Assessment/Plan: -cont tegretol and vimpat -neurology on board -seizure precautions Code(s): G40.909 - EPILEPSY, UNSP, NOT INTRACTABLE, WITHOUT STATUS EPILEPTICUS Assessment/Plan see problem list dvt ppx
[2018-11-17] MEDS: LACOSAMIDE 50 MG TABLET PO SCH ×2 (10:21→22:27)
[2018-11-17] MEDS: CARVEDILOL 25 MG TABLET (FP) PO SCH ×2 (10:22→22:08)
[2018-11-17] MEDS: HEPARIN NA (PORCINE) 5,000 UNITS/ML 1ML VIAL SQ SCH ×2 (10:22→22:27)
[2018-11-17] MEDS: amLODIPine BESYLATE 10 MG TABLET (FP) PO SCH (10:22)
[2018-11-17] MEDS: CEFTRIAXONE 1 GM in DEXTROSE 5%-WATER - 50 ML IVPB SCH (10:22)
[2018-11-17] MEDS ORDERED: PT OWN MED DRAWER 7, Y5N ONE (10:25)
[2018-11-17] MEDS: carBAMazepine 200 MG TABLET PO SCH ×2 (10:26→22:27)
[2018-11-17 10:36] LABS: ALBUMIN 2.5 g/dl (3.4-5.0); ALK PHOS 102 U/L (45-117); ANION GAP 6 MMOL/L (8-16); BILIRUBIN,TOTAL 0.4 mg/dL (0.2-1); BLOOD UREA NITROGEN 41 mg/dL (7-18); CALCIUM 7.9 mg/dL (8.5-10.1); CHLORIDE 114 mmol/L (98-107); CO2 24 mmol/L (21-32); CREATININE 1.4 mg/dL (0.55-1.3); GLUCOSE,RANDOM 214 mg/dL (74-106); POTASSIUM 4.7 mmol/L (3.5-5.1); SGOT/AST 87 U/L (15-37); SGPT/ALT 86 U/L (13-61); SODIUM 144 mmol/L (136-145); TOT PROT 6.5 g/dl (6.4-8.2)
[2018-11-17] MEDS ORDERED: INSULIN (NOVOLOG) ASPART 100 UNITS/ML 10ML VIAL ONE (12:41)
--- NOTE | 2018-11-17 13:26 | PN ---
Progress Note (short form) - Note Progress Note: sitting up at side of bed eating lunch alert following commands Vital Signs Period Temp Pulse Resp BP Sys/Pryor Pulse Ox Last 24 Hr 98 F-98.4 F 62-71 18-20 111-124/62-77 97-97 cor-rrr lungs decreased bs at bases abd soft,nt ext no edema CBC, BMP 11/17/18 08:31 11/17/18 08:31 Microbiology 11/13/18 17:00 Blood - Peripheral Venous Blood Culture - Preliminary NO GROWTH OBTAINED AFTER 72 HOURS, INCUBATION TO CONTINUE FOR 2 DAYS. 11/13/18 16:30 Blood - Peripheral Venous Blood Culture - Preliminary NO GROWTH OBTAINED AFTER 72 HOURS, INCUBATION TO CONTINUE FOR 2 DAYS. 11/13/18 23:30 Stool Clostridium difficile Antigen ([facility]ENCER) - Final 11/13/18 23:30 Stool Clostridium difficile Toxin Assay - Final 11/12/18 23:41 Urine - Urine Clean Catch Urine Culture - Final NO GROWTH OBTAINED Influenza A negative duplex negative DVT a/p fever-?viral, continue ceftriaxone, clinically improving day #5 would finish 7 days rayne/ckd-per renal-improving with IVF history dementia history seizure disorder please call back if needed Problem List - Problems (1) Fever Code(s): R50.9 - FEVER, UNSPECIFIED (2) RAYNE (acute kidney injury) Code(s): N17.9 - ACUTE KIDNEY FAILURE, UNSPECIFIED (3) Epilepsy Code(s): G40.909 - EPILEPSY, UNSP, NOT INTRACTABLE, WITHOUT STATUS EPILEPTICUS (4) Dementia Code(s): F03.90 - UNSPECIFIED DEMENTIA WITHOUT BEHAVIORAL DISTURBANCE
--- NOTE | 2018-11-17 15:56 | PN ---
Progress Note, Physician History of Present Illness: Pt seen and examined at bedside. He is awake and alert. He is out of bed to chair. He has more energy. - Current Medication List Current Medications: Active Medications Acetaminophen (Tylenol -) 650 mg PO Q4H PRN PRN Reason: PAIN Last Admin: 11/13/18 15:59 Dose: 650 mg Amlodipine Besylate (Norvasc -) 10 mg PO DAILY [facility] Last Admin: 11/17/18 10:22 Dose: 10 mg Carbamazepine (Tegretol -) 400 mg PO BID [facility] Last Admin: 11/17/18 10:26 Dose: 400 mg Carvedilol (Coreg -) 25 mg PO BID [facility] Last Admin: 11/17/18 10:22 Dose: 25 mg Donepezil HCl (Aricept -) 10 mg PO HS [facility] Last Admin: 11/16/18 21:35 Dose: 10 mg Heparin Sodium (Porcine) (Heparin -) 5,000 unit SQ BID [facility] Last Admin: 11/17/18 10:22 Dose: 5,000 unit Ceftriaxone Sodium 1 gm/ (Dextrose) 50 mls @ 100 mls/hr IVPB DAILY [facility] Last Admin: 11/17/18 10:22 Dose: 100 mls/hr Potassium Chloride 20 meq/ (Dextrose) 1,010 mls @ 70 mls/hr IVPB Q14H [facility] Last Admin: 11/17/18 13:20 Dose: 70 mls/hr Insulin Aspart (Novolog Vial Sliding Scale -) 1 vial SQ ACHS [facility]; Protocol Last Admin: 11/17/18 12:42 Dose: 4 units Insulin Detemir (Levemir Vial) 17 units SQ DAILY@0700 [facility] Last Admin: 11/17/18 06:21 Dose: 17 units Lacosamide (Vimpat -) 100 mg PO BID [facility] Last Admin: 11/17/18 10:21 Dose: 100 mg - Objective Vital Signs: Vital Signs Temperature 98.5 F 11/17/18 15:34 Pulse Rate 63 11/17/18 15:34 Respiratory Rate 18 11/17/18 15:34 Blood Pressure 133/73 11/17/18 15:34 O2 Sat by Pulse Oximetry (%) 97 11/17/18 09:00 Constitutional: Yes: Calm Eyes: Yes: Conjunctiva Clear HENT: Yes: Atraumatic Neck: Yes: Supple Cardiovascular: Yes: S1, S2 Respiratory: Yes: CTA Bilaterally Gastrointestinal: Yes: Normal Bowel Sounds, Soft Genitourinary: Yes: WNL Musculoskeletal: Yes: WNL Edema: No Neurological: Yes: Oriented Psychiatric: Yes: Oriented Labs: CBC, BMP 11/17/18 08:31 11/17/18 08:31 INR, PTT INR 1.20 (0.83-1.09) H 11/12/18 20:58 Problem List - Problems (1) RAYNE (acute kidney injury) Code(s): N17.9 - ACUTE KIDNEY FAILURE, UNSPECIFIED (2) Bilateral leg weakness Code(s): R29.898 - OTH SYMPTOMS AND SIGNS INVOLVING THE MUSCULOSKELETAL SYSTEM (3) Dementia Code(s): F03.90 - UNSPECIFIED DEMENTIA WITHOUT BEHAVIORAL DISTURBANCE (4) Epilepsy Code(s): G40.909 - EPILEPSY, UNSP, NOT INTRACTABLE, WITHOUT STATUS EPILEPTICUS (5) Fever Code(s): R50.9 - FEVER, UNSPECIFIED (6) Hypernatremia Code(s): E87.0 - HYPEROSMOLALITY AND HYPERNATREMIA (7) Weakness Code(s): R53.1 - WEAKNESS Assessment/Plan Current Medications Generic Name Dose Route Start Last Admin Trade Name Freq PRN Reason Stop Dose Admin Acetaminophen 650 mg 11/13/18 13:55 11/13/18 15:59 Tylenol - PO 650 mg Q4H PRN Administration PAIN Amlodipine Besylate 10 mg 11/13/18 10:00 11/17/18 10:22 Norvasc - PO 10 mg DAILY LO Administration Carbamazepine 400 mg 11/13/18 10:11/17/18 10:26 Tegretol - PO 400 mg BID LO Administration Carvedilol 25 mg 11/13/18 10:00 11/17/18 10:22 Coreg - PO 25 mg BID LO Administration Donepezil HCl 10 mg 11/13/18 22:00 11/16/18 21:35 Aricept - PO 10 mg HS LO Administration Heparin Sodium (Porcine) 5,000 unit 11/13/18 10:00 11/17/18 10:22 Heparin - SQ 5,000 unit BID LO Administration Ceftriaxone Sodium 1 gm/ 50 mls @ 100 mls/hr 11/13/18 22:30 11/17/18 10:22 Dextrose IVPB 100 mls/hr DAILY LO Administration Potassium Chloride 20 meq/ 1,010 mls @ 70 mls/hr 11/16/18 15:21 11/17/18 13: 20 Dextrose IVPB 70 mls/hr Q14H LO Administration Insulin Aspart 1 vial 11/15/18 07:00 11/17/18 12:42 Novolog Vial Sliding Scale - SQ 4 units ACHS LO Administration Protocol Insulin Detemir 17 units 11/15/18 07:00 11/17/18 06:21 Levemir Vial SQ 17 units DAILY@0700 LO Administration Lacosamide 100 mg 11/13/18 15:30 11/17/18 10:21 Vimpat - PO 100 mg BID LO Administration Impression 1. RAYNE 2. hypernatremia 3. weakness 4. dementia 5. HTN 6. epilepsy 7. DM Plan - renal function continues to improve - sodium stabilizing - cont fluids - d/c potassium from fluids - repeat labs in am - encourage free water intake Dr Gallo
[2018-11-17] MEDS: DEXTROSE 5%-WATER - 1,000 ML IV SCH (19:00)
[2018-11-17] MEDS: DONEPEZIL HCL 10 MG TABLET (FP) PO SCH (22:27)
[2018-11-18] MEDS: INSULIN SLIDING SCALE (NOVOLOG) 1 VIAL SQ SCH ×4 (06:16→21:58)
[2018-11-18] MEDS: INSULIN (LEVEMIR) 100 UNITS/ML UNITS SQ SCH (06:41)
[2018-11-18 07:36] LABS: HEMATOCRIT 32.7 % (35.4-49); HEMOGLOBIN 11.6 GM/dL (11.7-16.9); MCH 34.2 pg (25.7-33.7); MCHC 35.4 g/dl (32.0-35.9); MEAN CELL VOLUME 96.7 fl (80-96); MEAN PLT VOLUME 8.2 fl (7.5-11.1); PLATELET COUNT 146 K/MM3 (134-434); RBC 3.38 M/mm3 (4.00-5.60); RDW 13.9 % (11.9-15.9)
[2018-11-18 08:43] LABS: ALBUMIN 2.5 g/dl (3.4-5.0); ALK PHOS 100 U/L (45-117); ANION GAP 5 MMOL/L (8-16); BILIRUBIN,TOTAL 0.3 mg/dL (0.2-1); BLOOD UREA NITROGEN 32 mg/dL (7-18); CALCIUM 7.8 mg/dL (8.5-10.1); CHLORIDE 112 mmol/L (98-107); CO2 24 mmol/L (21-32); CREATININE 1.2 mg/dL (0.55-1.3); GLUCOSE,RANDOM 163 mg/dL (74-106); POTASSIUM 4.5 mmol/L (3.5-5.1); SGOT/AST 117 U/L (15-37); SGPT/ALT 108 U/L (13-61); SODIUM 141 mmol/L (136-145); TOT PROT 6.2 g/dl (6.4-8.2)
[2018-11-18] MEDS ORDERED: cefTRIAXone SODIUM 1 GM VIAL ONE (09:45)
[2018-11-18] MEDS ORDERED: DEXTROSE 5%-WATER - 50 ML IVPB ONE (09:46)
[2018-11-18] MEDS: carBAMazepine 200 MG TABLET PO SCH ×2 (10:56→21:56)
[2018-11-18] MEDS: HEPARIN NA (PORCINE) 5,000 UNITS/ML 1ML VIAL SQ SCH ×2 (10:56→21:56)
[2018-11-18] MEDS: CARVEDILOL 25 MG TABLET (FP) PO SCH ×2 (10:56→21:55)
[2018-11-18] MEDS: CEFTRIAXONE 1 GM in DEXTROSE 5%-WATER - 50 ML IVPB SCH (10:56)
[2018-11-18] MEDS: amLODIPine BESYLATE 10 MG TABLET (FP) PO SCH (10:56)
[2018-11-18] MEDS: LACOSAMIDE 50 MG TABLET PO SCH ×2 (11:44→21:55)
--- NOTE | 2018-11-18 12:22 | PN ---
Progress Note, Physician Chief Complaint: B/L LE weakness History of Present Illness: Previous notes and events reviewed awake and alert, confused NAD patient denies chest pain, SOB Na level nl and renal function improving - Current Medication List Current Medications: Active Medications Acetaminophen (Tylenol -) 650 mg PO Q4H PRN PRN Reason: PAIN Last Admin: 11/13/18 15:59 Dose: 650 mg Amlodipine Besylate (Norvasc -) 10 mg PO DAILY [facility] Last Admin: 11/18/18 10:56 Dose: 10 mg Carbamazepine (Tegretol -) 400 mg PO BID [facility] Last Admin: 11/18/18 10:56 Dose: 400 mg Carvedilol (Coreg -) 25 mg PO BID [facility] Last Admin: 11/18/18 10:56 Dose: 25 mg Donepezil HCl (Aricept -) 10 mg PO HS [facility] Last Admin: 11/17/18 22:27 Dose: 10 mg Heparin Sodium (Porcine) (Heparin -) 5,000 unit SQ BID [facility] Last Admin: 11/18/18 10:56 Dose: 5,000 unit Ceftriaxone Sodium 1 gm/ (Dextrose) 50 mls @ 100 mls/hr IVPB DAILY [facility] Last Admin: 11/18/18 10:56 Dose: 100 mls/hr Dextrose (D5w -) 1,000 mls @ 60 mls/hr IV ASDIR [facility] Last Admin: 11/17/18 19:00 Dose: 60 mls/hr Insulin Aspart (Novolog Vial Sliding Scale -) 1 vial SQ ACHS [facility]; Protocol Last Admin: 11/18/18 11:49 Dose: 3 units Insulin Detemir (Levemir Vial) 17 units SQ DAILY@0700 [facility] Last Admin: 11/18/18 06:41 Dose: 17 units Lacosamide (Vimpat -) 100 mg PO BID [facility] Last Admin: 11/18/18 11:44 Dose: 100 mg - Objective Vital Signs: Vital Signs Temperature 98.4 F 11/18/18 06:12 Pulse Rate 63 11/18/18 06:12 Respiratory Rate 18 11/18/18 06:12 Blood Pressure 136/71 11/18/18 06:12 O2 Sat by Pulse Oximetry (%) 97 11/17/18 21:00 Constitutional: Yes: No Distress, Calm Eyes: Yes: Conjunctiva Clear HENT: Yes: Normocephalic Cardiovascular: Yes: Regular Rate and Rhythm Respiratory: Yes: Regular, CTA Bilaterally Gastrointestinal: Yes: Normal Bowel Sounds, Soft, Other (non tender) Genitourinary: Yes: Incontinence Musculoskeletal: Yes: Muscle Weakness Extremities: Yes: WNL Edema: No Neurological: Yes: Alert, Pre-Existing Deficit Psychiatric: Yes: Alert Labs: CBC, BMP 11/18/18 07:00 11/18/18 07:00 INR, PTT INR 1.20 (0.83-1.09) H 11/12/18 20:58 Microbiology 11/13/18 17:00 Blood - Peripheral Venous Blood Culture - Preliminary NO GROWTH OBTAINED AFTER 96 HOURS, INCUBATION TO CONTINUE FOR 1 DAYS. 11/13/18 16:30 Blood - Peripheral Venous Blood Culture - Preliminary NO GROWTH OBTAINED AFTER 96 HOURS, INCUBATION TO CONTINUE FOR 1 DAYS. <Columba Melendez - Last Filed: 11/18/18 12:48> - Current Medication List Current Medications: Active Medications Acetaminophen (Tylenol -) 650 mg PO Q4H PRN PRN Reason: PAIN Last Admin: 11/13/18 15:59 Dose: 650 mg Amlodipine Besylate (Norvasc -) 10 mg PO DAILY [facility] Last Admin: 11/18/18 10:56 Dose: 10 mg Carbamazepine (Tegretol -) 400 mg PO BID [facility] Last Admin: 11/18/18 21:56 Dose: 400 mg Carvedilol (Coreg -) 25 mg PO BID [facility] Last Admin: 11/18/18 21:55 Dose: 25 mg Donepezil HCl (Aricept -) 10 mg PO HS [facility] Last Admin: 11/18/18 21:56 Dose: 10 mg Heparin Sodium (Porcine) (Heparin -) 5,000 unit SQ BID [facility] Last Admin: 11/18/18 21:56 Dose: 5,000 unit Ceftriaxone Sodium 1 gm/ (Dextrose) 50 mls @ 100 mls/hr IVPB DAILY [facility] Last Admin: 11/18/18 10:56 Dose: 100 mls/hr Dextrose (D5w -) 1,000 mls @ 35 mls/hr IV ASDIR [facility] Last Admin: 11/18/18 18:19 Dose: 35 mls/hr Insulin Aspart (Novolog Vial Sliding Scale -) 1 vial SQ [facility]; Protocol Last Admin: 11/19/18 06:35 Dose: Not Given Insulin Detemir (Levemir Vial) 17 units SQ DAILY@0700 [facility] Last Admin: 11/19/18 06:37 Dose: 17 units Lacosamide (Vimpat -) 100 mg PO BID [facility] Last Admin: 11/18/18 21:55 Dose: 100 mg - Objective Vital Signs: Vital Signs Temperature 98.8 F 11/19/18 04:00 Pulse Rate 64 11/19/18 04:00 Respiratory Rate 18 11/19/18 04:00 Blood Pressure 114/64 11/19/18 04:00 O2 Sat by Pulse Oximetry (%) 98 11/18/18 21:00 Labs: INR, PTT INR 1.20 (0.83-1.09) H 11/12/18 20:58 <Israel Lerner - Last Filed: 11/19/18 08:11> Problem List - Problems (1) RAYNE (acute kidney injury) Assessment/Plan: -BUN/Cr 32/1.2 -renal on board -cont with D5W -cont to monitor renal function -abd US show bilateral renal sinus lipomatosis with cortical thinning and increased echotexture, cannot rule out chronic medical renal disease Code(s): N17.9 - ACUTE KIDNEY FAILURE, UNSPECIFIED (2) Bilateral leg weakness Assessment/Plan: -neurology on board -PT -fall precautions -family requests outpatient PT rehab for patient, upon discharge will set up VNS services for PT Code(s): R29.898 - OTH SYMPTOMS AND SIGNS INVOLVING THE MUSCULOSKELETAL SYSTEM (3) Dementia Assessment/Plan: -neurology on board -continue with Donepazil 10mg hs Code(s): F03.90 - UNSPECIFIED DEMENTIA WITHOUT BEHAVIORAL DISTURBANCE (4) Diabetes mellitus Assessment/Plan: -BGM ACHS, ISS -diabetic diet -levemir daily -endo on board -HgA1c 7.0% Code(s): E11.9 - TYPE 2 DIABETES MELLITUS WITHOUT COMPLICATIONS (5) Hypernatremia Assessment/Plan: -Na 141 -continue to monitor Na level -renal on board Code(s): E87.0 - HYPEROSMOLALITY AND HYPERNATREMIA (6) Toxic metabolic encephalopathy Assessment/Plan: -ID on board -cont IV ceftriaxone -BC neg -afebrile, no leukocytosis -will discharge home 11/19/18 after completion of IV ABT Code(s): G92 - TOXIC ENCEPHALOPATHY (7) Epilepsy Assessment/Plan: -cont tegretol and vimpat -neurology on board -seizure precautions Code(s): G40.909 - EPILEPSY, UNSP, NOT INTRACTABLE, WITHOUT STATUS EPILEPTICUS (8) LFT elevation Assessment/Plan: -Abdominal US show fatty liver vs hepatocellular disease -GI consult Code(s): R94.5 - ABNORMAL RESULTS OF LIVER FUNCTION STUDIES <Columba Melendez - Last Filed: 11/18/18 12:48> - Problems (1) RAYNE (acute kidney injury) Code(s): N17.9 - ACUTE KIDNEY FAILURE, UNSPECIFIED (2) Bilateral leg weakness Code(s): R29.898 - OTH SYMPTOMS AND SIGNS INVOLVING THE MUSCULOSKELETAL SYSTEM (3) Dementia Code(s): F03.90 - UNSPECIFIED DEMENTIA WITHOUT BEHAVIORAL DISTURBANCE (4) Diabetes mellitus Code(s): E11.9 - TYPE 2 DIABETES MELLITUS WITHOUT COMPLICATIONS (5) Epilepsy Code(s): G40.909 - EPILEPSY, UNSP, NOT INTRACTABLE, WITHOUT STATUS EPILEPTICUS (6) Fever Code(s): R50.9 - FEVER, UNSPECIFIED (7) Hypernatremia Code(s): E87.0 - HYPEROSMOLALITY AND HYPERNATREMIA (8) Weakness Code(s): R53.1 - WEAKNESS (9) Toxic metabolic encephalopathy Code(s): G92 - TOXIC ENCEPHALOPATHY <Israel Lerner - Last Filed: 11/19/18 08:11> Assessment/Plan see problem list dvt ppx <Columba Melendez - Last Filed: 11/18/18 12:48> PATIENT SEEN AND EXAMINED AND I AGREE WITH ABOVE NOTE <Israel Lerner - Last Filed: 11/19/18 08:11>
[2018-11-18] MEDS: DEXTROSE 5%-WATER - 1,000 ML IV SCH ×2 (13:17→18:19)
--- NOTE | 2018-11-18 15:28 | PN ---
Progress Note, Physician History of Present Illness: Pt seen and examined at bedside. He is awake and alert. He denies shortness of breath. - Current Medication List Current Medications: Active Medications Acetaminophen (Tylenol -) 650 mg PO Q4H PRN PRN Reason: PAIN Last Admin: 11/13/18 15:59 Dose: 650 mg Amlodipine Besylate (Norvasc -) 10 mg PO DAILY [facility] Last Admin: 11/18/18 10:56 Dose: 10 mg Carbamazepine (Tegretol -) 400 mg PO BID [facility] Last Admin: 11/18/18 10:56 Dose: 400 mg Carvedilol (Coreg -) 25 mg PO BID [facility] Last Admin: 11/18/18 10:56 Dose: 25 mg Donepezil HCl (Aricept -) 10 mg PO HS [facility] Last Admin: 11/17/18 22:27 Dose: 10 mg Heparin Sodium (Porcine) (Heparin -) 5,000 unit SQ BID [facility] Last Admin: 11/18/18 10:56 Dose: 5,000 unit Ceftriaxone Sodium 1 gm/ (Dextrose) 50 mls @ 100 mls/hr IVPB DAILY [facility] Last Admin: 11/18/18 10:56 Dose: 100 mls/hr Dextrose (D5w -) 1,000 mls @ 60 mls/hr IV ASDIR [facility] Last Admin: 11/18/18 13:17 Dose: 60 mls/hr Insulin Aspart (Novolog Vial Sliding Scale -) 1 vial SQ ACHS [facility]; Protocol Last Admin: 11/18/18 11:49 Dose: 3 units Insulin Detemir (Levemir Vial) 17 units SQ DAILY@0700 [facility] Last Admin: 11/18/18 06:41 Dose: 17 units Lacosamide (Vimpat -) 100 mg PO BID [facility] Last Admin: 11/18/18 11:44 Dose: 100 mg - Objective Vital Signs: Vital Signs Temperature 98.1 F 11/18/18 14:13 Pulse Rate 105 H 11/18/18 14:13 Respiratory Rate 18 11/18/18 14:13 Blood Pressure 130/75 11/18/18 14:13 O2 Sat by Pulse Oximetry (%) 97 11/17/18 21:00 Constitutional: Yes: Calm Eyes: Yes: Conjunctiva Clear HENT: Yes: Atraumatic Neck: Yes: Supple Cardiovascular: Yes: S1, S2 Respiratory: Yes: CTA Bilaterally Gastrointestinal: Yes: Soft Genitourinary: Yes: WNL Musculoskeletal: Yes: WNL Edema: No Neurological: Yes: Oriented Psychiatric: Yes: Oriented Labs: CBC, BMP 11/18/18 07:00 11/18/18 07:00 INR, PTT INR 1.20 (0.83-1.09) H 11/12/18 20:58 Problem List - Problems (1) RAYNE (acute kidney injury) Code(s): N17.9 - ACUTE KIDNEY FAILURE, UNSPECIFIED (2) Bilateral leg weakness Code(s): R29.898 - OT SYMPTOMS AND SIGNS INVOLVING THE MUSCULOSKELETAL SYSTEM (3) Dementia Code(s): F03.90 - UNSPECIFIED DEMENTIA WITHOUT BEHAVIORAL DISTURBANCE (4) Epilepsy Code(s): G40.909 - EPILEPSY, UNSP, NOT INTRACTABLE, WITHOUT STATUS EPILEPTICUS (5) Fever Code(s): R50.9 - FEVER, UNSPECIFIED (6) Hypernatremia Code(s): E87.0 - HYPEROSMOLALITY AND HYPERNATREMIA (7) Weakness Code(s): R53.1 - WEAKNESS Assessment/Plan Current Medications Generic Name Dose Route Start Last Admin Trade Name Freq PRN Reason Stop Dose Admin Acetaminophen 650 mg 11/13/18 13:55 11/13/18 15:59 Tylenol - PO 650 mg Q4H PRN Administration PAIN Amlodipine Besylate 10 mg 11/13/18 10:00 11/18/18 10:56 Norvasc - PO 10 mg DAILY LO Administration Carbamazepine 400 mg 11/13/18 10:00 11/18/18 10:56 Tegretol - PO 400 mg BID LO Administration Carvedilol 25 mg 11/13/18 10:00 11/18/18 10:56 Coreg - PO 25 mg BID LO Administration Donepezil HCl 10 mg 11/13/18 22:00 11/17/18 22:27 Aricept - PO 10 mg HS LO Administration Heparin Sodium (Porcine) 5,000 unit 11/13/18 10:00 11/18/18 10:56 Heparin - SQ 5,000 unit BID LO Administration Ceftriaxone Sodium 1 gm/ 50 mls @ 100 mls/hr 11/13/18 22:30 11/18/18 10:56 Dextrose IVPB 100 mls/hr DAILY LO Administration Dextrose 1,000 mls @ 60 mls/hr 11/17/18 16:00 11/18/18 13:17 D5w - IV 60 mls/hr ASDIR LO Administration Insulin Aspart 1 vial 11/15/18 07:00 11/18/18 11:49 Novolog Vial Sliding Scale - SQ 3 units ACHS LO Administration Protocol Insulin Detemir 17 units 11/15/18 07:00 11/18/18 06:41 Levemir Vial SQ 17 units DAILY@0700 LO Administration Lacosamide 100 mg 11/13/18 15:30 11/18/18 11:44 Vimpat - PO 100 mg BID LO Administration Laboratory Tests 11/16/18 06:00 LUIS ANTONIO Screen Negative Impression 1. RAYNE 2. hypernatremia 3. weakness 4. dementia 5. HTN 6. epilepsy 7. DM Plan - renal function stable - potassium stable - sodium stable - decrease rate of fluids - abx per primary team - pt tolerating diet Dr Gallo
--- NOTE | 2018-11-18 17:09 | CON.GI ---
Consult Consult Specialty:: GI - History of Present Illness History of Present Illness: 68 y/o M with history of CVA, seizure disorder and dementia was admitted because of high grade fever, Acute renal failure and bilateral leg weakness. He is clinically improved . I was asked to see patient because of elevated liver enzymes. Abdominal ultrasound revealed fatty liver and possible dilation of the intrahepatic ducts. At present he denies abdominal pain,nausea, vomiting, and weakness - Past Medical History [employer]: Yes: Dementia, Other (epilepsy) Cardio/Vascular: Yes: HTN - Alcohol/Substance Use Hx Alcohol Use: No - Smoking History Smoking history: Never smoked Have you smoked in the past 12 months: No Aproximately how many cigarettes per day: 0 Home Medications - Allergies Allergies/Adverse Reactions: Allergies Allergy/AdvReac Type Severity Reaction Status Date / Time No Known Allergies Allergy Verified 11/12/18 19:16 - Home Medications Home Medications: Ambulatory Orders Amlodipine Besylate [Norvasc] 10 mg PO DAILY 04/05/12 Carbamazepine [Tegretol] 400 mg PO BID 04/05/12 Carvedilol [Coreg] 25 mg PO BID 04/05/12 Furosemide [Lasix] 40 mg PO DAILY 04/05/12 Vit B1 Mn/B2/B3/B5/B6/B12/C/FA [B Complex with Vitamin C Tab] 1 each PO DAILY Donepezil HCl 10 mg PO HS 06/26/18 Insulin Glargine,Hum.rec.anlog [Lantus] 28 unit SQ DAILY 06/26/18 Lacosamide [Vimpat -] 100 mg PO BID 06/26/18 Physical Exam-GI Vital Signs: Vital Signs Temperature 98.1 F 11/18/18 14:13 Pulse Rate 105 H 11/18/18 14:13 Respiratory Rate 18 11/18/18 14:13 Blood Pressure 130/75 11/18/18 14:13 O2 Sat by Pulse Oximetry (%) 97 11/18/18 09:00 Constitutional: Yes: Well Nourished Eyes: Yes: Conjunctiva Clear HENT: Yes: Atraumatic Neck: Yes: Supple, Tenderness Respiratory: Yes: CTA Bilaterally ...Palpate: Yes: Soft. No: Firm/Rigid, Guarding, Hepatomegaly, Mass, Pulsatile Mass, Splenomegaly, Tenderness Labs: CBC, BMP 11/18/18 07:00 11/18/18 07:00 INR, PTT INR 1.20 (0.83-1.09) H 11/12/18 20:58 Hepatic Panel Total Bilirubin 0.3 mg/dL (0.2-1) 11/18/18 07:00 AST 117 U/L (15-37) H 11/18/18 07:00 ALT 108 U/L (13-61) H 11/18/18 07:00 Alkaline Phosphatase 100 U/L (45-117) 11/18/18 07:00 Albumin 2.5 g/dl (3.4-5.0) L 11/18/18 07:00 Home Medications Medication Instructions Recorded Amlodipine Besylate [Norvasc] 10 mg PO DAILY 04/05/12 Carbamazepine [Tegretol] 400 mg PO BID 04/05/12 Carvedilol [Coreg] 25 mg PO BID 04/05/12 Furosemide [Lasix] 40 mg PO DAILY 04/05/12 Vit B1 Mn/B2/B3/B5/B6/B12/C/FA [B 1 each PO DAILY 04/05/12 Complex with Vitamin C Tab] Donepezil HCl 10 mg PO HS 06/26/18 Insulin Glargine,Hum.rec.anlog 28 unit SQ DAILY 06/26/18 [Lantus] Lacosamide [Vimpat -] 100 mg PO BID 06/26/18 Active Medications Generic Name Dose Route Start Last Admin Trade Name Freq PRN Reason Stop Dose Admin Acetaminophen 650 mg 11/13/18 13:55 11/13/18 15:59 Tylenol - PO 650 mg Q4H PRN Administration PAIN Amlodipine Besylate 10 mg 11/13/18 10:00 11/18/18 10:56 Norvasc - PO 10 mg DAILY LO Administration Carbamazepine 400 mg 11/13/18 10:00 11/18/18 10:56 Tegretol - PO 400 mg BID LO Administration Carvedilol 25 mg 11/13/18 10:00 11/18/18 10:56 Coreg - PO 25 mg BID LO Administration Donepezil HCl 10 mg 11/13/18 22:00 11/17/18 22:27 Aricept - PO 10 mg HS LO Administration Heparin Sodium (Porcine) 5,000 unit 11/13/18 10:00 11/18/18 10:56 Heparin - SQ 5,000 unit BID LO Administration Ceftriaxone Sodium 1 gm/ 50 mls @ 100 mls/hr 11/13/18 22:30 11/18/18 10:56 Dextrose IVPB 100 mls/hr DAILY LO Administration Dextrose 1,000 mls @ 35 mls/hr 11/18/18 15:28 D5w - IV ASDIR LO Insulin Aspart 1 vial 11/15/18 07:00 11/18/18 11:49 Novolog Vial Sliding Scale - SQ 3 units ACHS LO Administration Protocol Insulin Detemir 17 units 11/15/18 07:00 11/18/18 06:41 Levemir Vial SQ 17 units DAILY@0700 LO Administration Lacosamide 100 mg 11/13/18 15:30 11/18/18 11:44 Vimpat - PO 100 mg BID LO Administration Problem List - Problems (1) Elevated liver enzymes Assessment/Plan: mild hepatocellular injury, most likely this multifactorial including secondary to medication and fatty liver R> avoid hepatocellular medication. reconsult neurology chronic liver work-up as an outpatient obtain MRCP to r/o intraductal dilation , the abdominal ultrasound was equivocal please arrange follow up as an outpatient Code(s): R74.8 - ABNORMAL LEVELS OF OTHER SERUM ENZYMES
[2018-11-18] MEDS ORDERED: PT OWN MED DRAWER 7, Y5N ONE (20:23)
--- NOTE | 2018-11-18 20:59 | PN ---
Progress Note, Physician Chief Complaint: resting comfortable - Current Medication List Current Medications: Active Medications Acetaminophen (Tylenol -) 650 mg PO Q4H PRN PRN Reason: PAIN Last Admin: 11/13/18 15:59 Dose: 650 mg Amlodipine Besylate (Norvasc -) 10 mg PO DAILY [facility] Last Admin: 11/18/18 10:56 Dose: 10 mg Carbamazepine (Tegretol -) 400 mg PO BID [facility] Last Admin: 11/18/18 10:56 Dose: 400 mg Carvedilol (Coreg -) 25 mg PO BID [facility] Last Admin: 11/18/18 10:56 Dose: 25 mg Donepezil HCl (Aricept -) 10 mg PO HS [facility] Last Admin: 11/17/18 22:27 Dose: 10 mg Heparin Sodium (Porcine) (Heparin -) 5,000 unit SQ BID [facility] Last Admin: 11/18/18 10:56 Dose: 5,000 unit Ceftriaxone Sodium 1 gm/ (Dextrose) 50 mls @ 100 mls/hr IVPB DAILY [facility] Last Admin: 11/18/18 10:56 Dose: 100 mls/hr Dextrose (D5w -) 1,000 mls @ 35 mls/hr IV ASDIR [facility] Last Admin: 11/18/18 18:19 Dose: 35 mls/hr Insulin Aspart (Novolog Vial Sliding Scale -) 1 vial SQ ACHS [facility]; Protocol Last Admin: 11/18/18 17:40 Dose: Not Given Insulin Detemir (Levemir Vial) 17 units SQ DAILY@0700 [facility] Last Admin: 11/18/18 06:41 Dose: 17 units Lacosamide (Vimpat -) 100 mg PO BID [facility] Last Admin: 11/18/18 11:44 Dose: 100 mg - Objective Vital Signs: Vital Signs Temperature 98.3 F 11/18/18 18:00 Pulse Rate 63 11/18/18 18:00 Respiratory Rate 18 11/18/18 18:00 Blood Pressure 145/72 11/18/18 18:00 O2 Sat by Pulse Oximetry (%) 97 11/18/18 09:00 Constitutional: Yes: Calm Eyes: Yes: EOM Intact HENT: Yes: Normocephalic Neck: Yes: Trachea Midline Cardiovascular: Yes: Regular Rate and Rhythm Respiratory: Yes: CTA Bilaterally Gastrointestinal: Yes: Normal Bowel Sounds, Abdomen, Obese ...Rectal Exam: Yes: Deferred Breast(s): Yes: WNL Musculoskeletal: Yes: WNL Extremities: Yes: WNL Neurological: Yes: Alert Labs: CBC, BMP 11/18/18 07:00 11/18/18 07:00 INR, PTT INR 1.20 (0.83-1.09) H 11/12/18 20:58 Problem List - Problems (1) Dementia Code(s): F03.90 - UNSPECIFIED DEMENTIA WITHOUT BEHAVIORAL DISTURBANCE (2) Diabetes mellitus Code(s): E11.9 - TYPE 2 DIABETES MELLITUS WITHOUT COMPLICATIONS (3) Epilepsy Code(s): G40.909 - EPILEPSY, UNSP, NOT INTRACTABLE, WITHOUT STATUS EPILEPTICUS (4) Fever Code(s): R50.9 - FEVER, UNSPECIFIED (5) Hypernatremia Code(s): E87.0 - HYPEROSMOLALITY AND HYPERNATREMIA (6) Toxic metabolic encephalopathy Code(s): G92 - TOXIC ENCEPHALOPATHY Assessment/Plan Current Active Problems RAYNE (acute kidney injury) (Acute) Bilateral leg weakness (Acute) Dementia (Acute) Diabetes mellitus (Acute) Elevated liver enzymes (Acute) Epilepsy (Acute) Fever (Acute) Hypernatremia (Acute) LFT elevation (Acute) Toxic metabolic encephalopathy (Acute) Weakness (Acute) Abnormal Lab Results 11/18/18 11/18/18 07:00 07:00 RBC 3.38 L Hgb 11.6 L Hct 32.7 L MCV 96.7 H MCH 34.2 H Chloride 112 H Anion Gap 5 L BUN 32 H Random Glucose 163 H Calcium 7.8 L AST 117 H ALT 108 H Total Protein 6.2 L Albumin 2.5 L Laboratory Results - last 24 hr 11/18/18 11/18/18 11/18/18 05:44 07:00 07:00 WBC 6.0 RBC 3.38 L Hgb 11.6 L Hct 32.7 L MCV 96.7 H MCH 34.2 H MCHC 35.4 RDW 13.9 Plt Count 146 MPV 8.2 Sodium 141 Potassium 4.5 Chloride 112 H Carbon Dioxide 24 Anion Gap 5 L BUN 32 H Creatinine 1.2 Creat Clearance w eGFR > 60 POC Glucometer 157 Random Glucose 163 H Calcium 7.8 L Total Bilirubin 0.3 AST 117 H ALT 108 H Alkaline Phosphatase 100 Total Protein 6.2 L Albumin 2.5 L 02/17/19 02/17/19 11:14 17:32 WBC RBC Hgb Hct MCV MCH MCHC RDW Plt Count MPV Sodium Potassium Chloride Carbon Dioxide Anion Gap BUN Creatinine Creat Clearance w eGFR POC Glucometer 212 108 Random Glucose Calcium Total Bilirubin AST ALT Alkaline Phosphatase Total Protein Albumin plan: bgm qid novolog insulin doses levemir dose 17 iu daily
[2018-11-18] MEDS: DONEPEZIL HCL 10 MG TABLET (FP) PO SCH (21:56)
[2018-11-19] MEDS: INSULIN SLIDING SCALE (NOVOLOG) 1 VIAL SQ SCH ×4 (06:35→21:34)
[2018-11-19] MEDS: INSULIN (LEVEMIR) 100 UNITS/ML UNITS SQ SCH (06:37)
[2018-11-19 07:55] LABS: HEMATOCRIT 29.5 % (35.4-49); HEMOGLOBIN 10.3 GM/dL (11.7-16.9); MCH 33.5 pg (25.7-33.7); MCHC 34.8 g/dl (32.0-35.9); MEAN CELL VOLUME 96.4 fl (80-96); MEAN PLT VOLUME 8.1 fl (7.5-11.1); PLATELET COUNT 162 K/MM3 (134-434); RBC 3.06 M/mm3 (4.00-5.60); RDW 13.9 % (11.9-15.9); WHITE BLOOD COUNT 4.5 K/mm3 (4.0-10.0)
--- NOTE | 2018-11-19 08:12 | PN ---
Progress Note, Physician Chief Complaint: AWAITING MRI ABDOMEN AWAKE ALERT X 2 BASELINE - Current Medication List Current Medications: Active Medications Acetaminophen (Tylenol -) 650 mg PO Q4H PRN PRN Reason: PAIN Last Admin: 11/13/18 15:59 Dose: 650 mg Amlodipine Besylate (Norvasc -) 10 mg PO DAILY [facility] Last Admin: 11/18/18 10:56 Dose: 10 mg Carbamazepine (Tegretol -) 400 mg PO BID [facility] Last Admin: 11/18/18 21:56 Dose: 400 mg Carvedilol (Coreg -) 25 mg PO BID [facility] Last Admin: 11/18/18 21:55 Dose: 25 mg Donepezil HCl (Aricept -) 10 mg PO HS [facility] Last Admin: 11/18/18 21:56 Dose: 10 mg Heparin Sodium (Porcine) (Heparin -) 5,000 unit SQ BID [facility] Last Admin: 11/18/18 21:56 Dose: 5,000 unit Ceftriaxone Sodium 1 gm/ (Dextrose) 50 mls @ 100 mls/hr IVPB DAILY [facility] Last Admin: 11/18/18 10:56 Dose: 100 mls/hr Dextrose (D5w -) 1,000 mls @ 35 mls/hr IV ASDIR [facility] Last Admin: 11/18/18 18:19 Dose: 35 mls/hr Insulin Aspart (Novolog Vial Sliding Scale -) 1 vial SQ ACHS [facility]; Protocol Last Admin: 11/19/18 06:35 Dose: Not Given Insulin Detemir (Levemir Vial) 17 units SQ DAILY@0700 [facility] Last Admin: 11/19/18 06:37 Dose: 17 units Lacosamide (Vimpat -) 100 mg PO BID [facility] Last Admin: 11/18/18 21:55 Dose: 100 mg - Objective Vital Signs: Vital Signs Temperature 98.8 F 11/19/18 04:00 Pulse Rate 64 11/19/18 04:00 Respiratory Rate 18 11/19/18 04:00 Blood Pressure 114/64 11/19/18 04:00 O2 Sat by Pulse Oximetry (%) 98 11/18/18 21:00 Constitutional: Yes: No Distress Cardiovascular: Yes: Regular Rate and Rhythm Respiratory: Yes: WNL Gastrointestinal: Yes: WNL Genitourinary: Yes: Incontinence Extremities: Yes: Other Edema: No Integumentary: Yes: WNL Wound/Incision: Yes: Clean/Dry Neurological: Yes: Pre-Existing Deficit Labs: INR, PTT INR 1.20 (0.83-1.09) H 11/12/18 20:58 Problem List - Problems (1) RAYNE (acute kidney injury) Code(s): N17.9 - ACUTE KIDNEY FAILURE, UNSPECIFIED (2) Bilateral leg weakness Code(s): R29.898 - OTH SYMPTOMS AND SIGNS INVOLVING THE MUSCULOSKELETAL SYSTEM (3) Dementia Code(s): F03.90 - UNSPECIFIED DEMENTIA WITHOUT BEHAVIORAL DISTURBANCE (4) Diabetes mellitus Code(s): E11.9 - TYPE 2 DIABETES MELLITUS WITHOUT COMPLICATIONS (5) Epilepsy Code(s): G40.909 - EPILEPSY, UNSP, NOT INTRACTABLE, WITHOUT STATUS EPILEPTICUS (6) Fever Code(s): R50.9 - FEVER, UNSPECIFIED (7) Hypernatremia Code(s): E87.0 - HYPEROSMOLALITY AND HYPERNATREMIA (8) Weakness Code(s): R53.1 - WEAKNESS (9) Toxic metabolic encephalopathy Code(s): G92 - TOXIC ENCEPHALOPATHY Assessment/Plan MRI ABDOMEN PENDING OOB TO CHAIR PT EVAL HOME VS SNF GI F/U OUTPATIENT
--- NOTE | 2018-11-19 08:21 | PN ---
Progress Note, Physician History of Present Illness: Patient examined and case discussed with Dr. Guerra GI FOLLOW UP NOTE Patient examined lying in bed. Denies abdominal pain, nausea, vomi/ting, rectal bleeding. Abdominal US shows fatty liver disease vs hepatocellular disease. ALT and AST elevated and have been slowly trending up, most recent ALT/ AST 108/117. - Current Medication List Current Medications: Active Medications Acetaminophen (Tylenol -) 650 mg PO Q4H PRN PRN Reason: PAIN Last Admin: 11/13/18 15:59 Dose: 650 mg Amlodipine Besylate (Norvasc -) 10 mg PO DAILY [facility] [place] Last Admin: 11/18/18 10:56 Dose: 10 mg Carbamazepine (Tegretol -) 400 mg PO BID [facility] Last Admin: 11/18/18 21:56 Dose: 400 mg Carvedilol (Coreg -) 25 mg PO BID [facility] [place] Last Admin: 11/18/18 21:55 Dose: 25 mg Donepezil HCl (Aricept -) 10 mg PO HS [facility] [place] Last Admin: 11/18/18 21:56 Dose: 10 mg Heparin Sodium (Porcine) (Heparin -) 5,000 unit SQ BID [facility] [place] Last Admin: 11/18/18 21:56 Dose: 5,000 unit Ceftriaxone Sodium 1 gm/ (Dextrose) 50 mls @ 100 mls/hr IVPB DAILY [facility] [place] Last Admin: 11/18/18 10:56 Dose: 100 mls/hr Dextrose (D5w -) 1,000 mls @ 35 mls/hr IV ASDIR [facility] Last Admin: 11/18/18 18:19 Dose: 35 mls/hr Insulin Aspart (Novolog Vial Sliding Scale -) 1 vial SQ ACHS [facility]; Protocol Last Admin: 11/19/18 06:35 Dose: Not Given Insulin Detemir (Levemir Vial) 17 units SQ DAILY@0700 [facility] [place] Last Admin: 11/19/18 06:37 Dose: 17 units Lacosamide (Vimpat -) 100 mg PO BID [facility] Last Admin: 11/18/18 21:55 Dose: 100 mg - Objective Vital Signs: Vital Signs Temperature 98.8 F 11/19/18 04:00 Pulse Rate 64 11/19/18 04:00 Respiratory Rate 18 11/19/18 04:00 Blood Pressure 114/64 11/19/18 04:00 O2 Sat by Pulse Oximetry (%) 98 11/18/18 21:00 Constitutional: Yes: No Distress, Calm Eyes: Yes: Conjunctiva Clear Neck: Yes: Supple Cardiovascular: Yes: Regular Rate and Rhythm Respiratory: Yes: Regular, CTA Bilaterally Gastrointestinal: Yes: Normal Bowel Sounds, Soft, Tenderness (RUQ), Other ( tympany) Musculoskeletal: Yes: Muscle Weakness Neurological: Yes: Alert, Pre-Existing Deficit Psychiatric: Yes: Alert Labs: INR, PTT INR 1.20 (0.83-1.09) H 11/12/18 20:58 Laboratory Results - last 24 hr 11/18/18 11/18/18 11/18/18 07:00 11:14 17:32 Sodium 141 Potassium 4.5 Chloride 112 H Carbon Dioxide 24 Anion Gap 5 L BUN 32 H Creatinine 1.2 Creat Clearance w eGFR > 60 POC Glucometer 212 108 Random Glucose 163 H Calcium 7.8 L Total Bilirubin 0.3 AST 117 H ALT 108 H Alkaline Phosphatase 100 Total Protein 6.2 L Albumin 2.5 L 11/18/18 11/19/18 21:53 06:34 Sodium Potassium Chloride Carbon Dioxide Anion Gap BUN Creatinine Creat Clearance w eGFR POC Glucometer 202 105 Random Glucose Calcium Total Bilirubin AST ALT Alkaline Phosphatase Total Protein Albumin Problem List - Problems (1) RAYNE (acute kidney injury) Code(s): N17.9 - ACUTE KIDNEY FAILURE, UNSPECIFIED (2) Bilateral leg weakness Code(s): R29.898 - OTH SYMPTOMS AND SIGNS INVOLVING THE MUSCULOSKELETAL SYSTEM (3) Dementia Code(s): F03.90 - UNSPECIFIED DEMENTIA WITHOUT BEHAVIORAL DISTURBANCE (4) Diabetes mellitus Code(s): E11.9 - TYPE 2 DIABETES MELLITUS WITHOUT COMPLICATIONS (5) Hypernatremia Code(s): E87.0 - HYPEROSMOLALITY AND HYPERNATREMIA (6) Toxic metabolic encephalopathy Code(s): G92 - TOXIC ENCEPHALOPATHY (7) Epilepsy Code(s): G40.909 - EPILEPSY, UNSP, NOT INTRACTABLE, WITHOUT STATUS EPILEPTICUS (8) LFT elevation Assessment/Plan: -Abdominal US show fatty liver vs hepatocellular disease -monitor LFTs due to upward trend -MRCP ordered -follow up as an outpatient for chronic liver work-up Code(s): R94.5 - ABNORMAL RESULTS OF LIVER FUNCTION STUDIES
[2018-11-19 08:55] LABS: ALBUMIN 2.4 g/dl (3.4-5.0); ALK PHOS 99 U/L (45-117); ANION GAP 4 MMOL/L (8-16); BILIRUBIN,TOTAL 0.6 mg/dL (0.2-1); BLOOD UREA NITROGEN 26 mg/dL (7-18); CALCIUM 7.8 mg/dL (8.5-10.1); CHLORIDE 111 mmol/L (98-107); CO2 26 mmol/L (21-32); CREATININE 1.1 mg/dL (0.55-1.3); GLUCOSE,RANDOM 106 mg/dL (74-106); POTASSIUM 4.6 mmol/L (3.5-5.1); SGOT/AST 112 U/L (15-37); SGPT/ALT 120 U/L (13-61); SODIUM 141 mmol/L (136-145); TOT PROT 5.8 g/dl (6.4-8.2)
[2018-11-19] MEDS ORDERED: DEXTROSE 5%-WATER - 50 ML IVPB ONE (09:05)
[2018-11-19] MEDS ORDERED: cefTRIAXone SODIUM 1 GM VIAL ONE (09:05)
[2018-11-19] MEDS: CEFTRIAXONE 1 GM in DEXTROSE 5%-WATER - 50 ML IVPB SCH (09:09)
[2018-11-19] MEDS: CARVEDILOL 25 MG TABLET (FP) PO SCH ×2 (09:11→21:26)
[2018-11-19] MEDS: HEPARIN NA (PORCINE) 5,000 UNITS/ML 1ML VIAL SQ SCH ×2 (09:11→21:26)
[2018-11-19] MEDS: carBAMazepine 200 MG TABLET PO SCH ×2 (09:11→21:27)
[2018-11-19] MEDS: LACOSAMIDE 50 MG TABLET PO SCH ×2 (09:11→21:27)
[2018-11-19] MEDS: amLODIPine BESYLATE 10 MG TABLET (FP) PO SCH (09:11)
--- NOTE | 2018-11-19 16:38 | PN ---
Progress Note, Physician History of Present Illness: Pt seen and examined at bedside. He is awake and alert. He is eager to go home. - Current Medication List Current Medications: Active Medications Acetaminophen (Tylenol -) 650 mg PO Q4H PRN PRN Reason: PAIN Last Admin: 11/13/18 15:59 Dose: 650 mg Amlodipine Besylate (Norvasc -) 10 mg PO DAILY [facility] Last Admin: 11/19/18 09:11 Dose: 10 mg Carbamazepine (Tegretol -) 400 mg PO BID [facility] Last Admin: 11/19/18 09:11 Dose: 400 mg Carvedilol (Coreg -) 25 mg PO BID [facility] Last Admin: 11/19/18 09:11 Dose: 25 mg Donepezil HCl (Aricept -) 10 mg PO HS [facility] Last Admin: 11/18/18 21:56 Dose: 10 mg Heparin Sodium (Porcine) (Heparin -) 5,000 unit SQ BID [facility] Last Admin: 11/19/18 09:11 Dose: 5,000 unit Ceftriaxone Sodium 1 gm/ (Dextrose) 50 mls @ 100 mls/hr IVPB DAILY [facility] Last Admin: 11/19/18 09:09 Dose: 100 mls/hr Dextrose (D5w -) 1,000 mls @ 35 mls/hr IV ASDIR [facility] Last Admin: 11/18/18 18:19 Dose: 35 mls/hr Insulin Aspart (Novolog Vial Sliding Scale -) 1 vial SQ ACHS [facility]; Protocol Last Admin: 11/19/18 16:17 Dose: Not Given Insulin Detemir (Levemir Vial) 17 units SQ DAILY@0700 [facility] Last Admin: 11/19/18 06:37 Dose: 17 units Lacosamide (Vimpat -) 100 mg PO BID [facility] Last Admin: 11/19/18 09:11 Dose: 100 mg - Objective Vital Signs: Vital Signs Temperature 98.5 F 11/19/18 15:12 Pulse Rate 63 11/19/18 15:12 Respiratory Rate 20 11/19/18 15:12 Blood Pressure 136/70 11/19/18 15:12 O2 Sat by Pulse Oximetry (%) 95 11/19/18 09:00 Constitutional: Yes: Calm Eyes: Yes: Conjunctiva Clear HENT: Yes: Atraumatic Cardiovascular: Yes: S1, S2 Respiratory: Yes: CTA Bilaterally Gastrointestinal: Yes: Soft Genitourinary: Yes: WNL Musculoskeletal: Yes: WNL Edema: No Neurological: Yes: Oriented Psychiatric: Yes: Oriented Labs: CBC, BMP 11/19/18 06:15 11/19/18 06:15 INR, PTT INR 1.20 (0.83-1.09) H 11/12/18 20:58 Problem List - Problems (1) RAYNE (acute kidney injury) Code(s): N17.9 - ACUTE KIDNEY FAILURE, UNSPECIFIED (2) Bilateral leg weakness Code(s): R29.898 - OTH SYMPTOMS AND SIGNS INVOLVING THE MUSCULOSKELETAL SYSTEM (3) Dementia Code(s): F03.90 - UNSPECIFIED DEMENTIA WITHOUT BEHAVIORAL DISTURBANCE (4) Epilepsy Code(s): G40.909 - EPILEPSY, UNSP, NOT INTRACTABLE, WITHOUT STATUS EPILEPTICUS (5) Fever Code(s): R50.9 - FEVER, UNSPECIFIED (6) Hypernatremia Code(s): E87.0 - HYPEROSMOLALITY AND HYPERNATREMIA (7) Weakness Code(s): R53.1 - WEAKNESS Assessment/Plan Current Medications Generic Name Dose Route Start Last Admin Trade Name Freq PRN Reason Stop Dose Admin Acetaminophen 650 mg 11/13/18 13:55 11/13/18 15:59 Tylenol - PO 650 mg Q4H PRN Administration PAIN Amlodipine Besylate 10 mg 11/13/18 10:00 11/19/18 09:11 Norvasc - PO 10 mg DAILY LO Administration Carbamazepine 400 mg 11/13/18 10:00 11/19/18 09:11 Tegretol - PO 400 mg BID LO Administration Carvedilol 25 mg 11/13/18 10:00 11/19/18 09:11 Coreg - PO 25 mg BID LO Administration Donepezil HCl 10 mg 11/13/18 22:00 11/18/18 21:56 Aricept - PO 10 mg HS LO Administration Heparin Sodium (Porcine) 5,000 unit 11/13/18 10:00 11/19/18 09:11 Heparin - SQ 5,000 unit BID LO Administration Ceftriaxone Sodium 1 gm/ 50 mls @ 100 mls/hr 11/13/18 22:30 11/19/18 09:09 Dextrose IVPB 100 mls/hr DAILY LO Administration Dextrose 1,000 mls @ 35 mls/hr 11/18/18 15:28 11/18/18 18:19 D5w - IV 35 mls/hr ASDIR LO Administration Insulin Aspart 1 vial 11/15/18 07:00 11/19/18 16:17 Novolog Vial Sliding Scale - SQ Not Given ACHS [facility] Protocol Insulin Detemir 17 units 11/15/18 07:00 11/19/18 06:37 Levemir Vial SQ 17 units DAILY@0700 LO Administration Lacosamide 100 mg 11/13/18 15:30 11/19/18 09:11 Vimpat - PO 100 mg BID LO Administration Impression 1. RAYNE 2. hypernatremia 3. weakness 4. dementia 5. HTN 6. epilepsy 7. DM Plan - sodium stable - renal function stable - observe off of fluids - can see as outpt - abx per primary team - pt tolerating diet Dr Gallo
[2018-11-19] MEDS: DEXTROSE 5%-WATER - 1,000 ML IV SCH (19:34)
[2018-11-19] MEDS: DONEPEZIL HCL 10 MG TABLET (FP) PO SCH (21:26)
[2018-11-20] MEDS: INSULIN (LEVEMIR) 100 UNITS/ML UNITS SQ SCH (06:10)
[2018-11-20] MEDS: INSULIN SLIDING SCALE (NOVOLOG) 1 VIAL SQ SCH ×3 (06:10→17:33)
--- NOTE | 2018-11-20 07:54 | PN ---
Progress Note, Physician History of Present Illness: Patient examined and case discussed with Dr. Guerra GI FOLLOW UP NOTE Patient examined lying in bed. RN states patient experiencing constipation with last BM 3 days ago. Denies abdominal pain, nausea, vomiting. Abdominal US shows fatty liver disease vs hepatocellular disease. ALT and AST elevated and have been slowly trending up, most recent ALT/AST 120/112. Abdominal MRI results pending. - Current Medication List Current Medications: Active Medications Acetaminophen (Tylenol -) 650 mg PO Q4H PRN PRN Reason: PAIN Last Admin: 11/13/18 15:59 Dose: 650 mg Amlodipine Besylate (Norvasc -) 10 mg PO DAILY [facility] Last Admin: 11/19/18 09:11 Dose: 10 mg Carbamazepine (Tegretol -) 400 mg PO BID [facility] Last Admin: 11/19/18 21:27 Dose: 400 mg Carvedilol (Coreg -) 25 mg PO BID [facility] Last Admin: 11/19/18 21:26 Dose: 25 mg Donepezil HCl (Aricept -) 10 mg PO HS [facility] Last Admin: 11/19/18 21:26 Dose: 10 mg Heparin Sodium (Porcine) (Heparin -) 5,000 unit SQ BID [facility] Last Admin: 11/19/18 21:26 Dose: 5,000 unit Ceftriaxone Sodium 1 gm/ (Dextrose) 50 mls @ 100 mls/hr IVPB DAILY [facility] Last Admin: 11/19/18 09:09 Dose: 100 mls/hr Insulin Aspart (Novolog Vial Sliding Scale -) 1 vial SQ [facility]; Protocol Last Admin: 11/20/18 06:10 Dose: Not Given Insulin Detemir (Levemir Vial) 17 units SQ DAILY@0700 [facility] Last Admin: 11/20/18 06:10 Dose: 17 units Lacosamide (Vimpat -) 100 mg PO BID [facility] Last Admin: 11/19/18 21:27 Dose: 100 mg - Objective Vital Signs: Vital Signs Temperature 98.0 F 11/20/18 06:00 Pulse Rate 64 11/20/18 06:00 Respiratory Rate 18 11/20/18 06:00 Blood Pressure 127/65 11/20/18 06:00 O2 Sat by Pulse Oximetry (%) 96 11/19/18 21:00 Constitutional: Yes: Well Nourished, No Distress, Calm Eyes: Yes: Conjunctiva Clear HENT: Yes: Normocephalic Neck: Yes: Supple Cardiovascular: Yes: Regular Rate and Rhythm Respiratory: Yes: Regular, CTA Bilaterally Gastrointestinal: Yes: Normal Bowel Sounds, Soft Musculoskeletal: Yes: Muscle Weakness Extremities: Yes: WNL Neurological: Yes: Alert, Pre-Existing Deficit Psychiatric: Yes: Alert Labs: CBC, BMP 11/19/18 06:15 11/19/18 06:15 INR, PTT INR 1.20 (0.83-1.09) H 11/12/18 20:58 Active Medications Generic Name Dose Route Start Last Admin Trade Name Freq PRN Reason Stop Dose Admin Acetaminophen 650 mg 11/13/18 13:55 11/13/18 15:59 Tylenol - PO 650 mg Q4H PRN Administration PAIN Amlodipine Besylate 10 mg 11/13/18 10:00 11/19/18 09:11 Norvasc - PO 10 mg DAILY LO Administration Carbamazepine 400 mg 11/13/18 10:00 11/19/18 21:27 Tegretol - PO 400 mg BID LO Administration Carvedilol 25 mg 11/13/18 10:00 11/19/18 21:26 Coreg - PO 25 mg BID LO Administration Donepezil HCl 10 mg 11/13/18 22:00 11/19/18 21:26 Aricept - PO 10 mg HS LO Administration Heparin Sodium (Porcine) 5,000 unit 11/13/18 10:00 11/19/18 21:26 Heparin - SQ 5,000 unit BID LO Administration Ceftriaxone Sodium 1 gm/ 50 mls @ 100 mls/hr 11/13/18 22:30 11/19/18 09:09 Dextrose IVPB 100 mls/hr DAILY LO Administration Insulin Aspart 1 vial 11/15/18 07:00 11/20/18 06:10 Novolog Vial Sliding Scale - SQ Not Given ACHS [facility] Protocol Insulin Detemir 17 units 11/15/18 07:00 11/20/18 06:10 Levemir Vial SQ 17 units DAILY@0700 LO Administration Lacosamide 100 mg 11/13/18 15:30 11/19/18 21:27 Vimpat - PO 100 mg BID LO Administration Problem List - Problems (1) RAYNE (acute kidney injury) Code(s): N17.9 - ACUTE KIDNEY FAILURE, UNSPECIFIED (2) Bilateral leg weakness Code(s): R29.898 - OT SYMPTOMS AND SIGNS INVOLVING THE MUSCULOSKELETAL SYSTEM (3) Dementia Code(s): F03.90 - UNSPECIFIED DEMENTIA WITHOUT BEHAVIORAL DISTURBANCE (4) Diabetes mellitus Code(s): E11.9 - TYPE 2 DIABETES MELLITUS WITHOUT COMPLICATIONS (5) Hypernatremia Code(s): E87.0 - HYPEROSMOLALITY AND HYPERNATREMIA (6) Toxic metabolic encephalopathy Code(s): G92 - TOXIC ENCEPHALOPATHY (7) Epilepsy Code(s): G40.909 - EPILEPSY, UNSP, NOT INTRACTABLE, WITHOUT STATUS EPILEPTICUS (8) LFT elevation Assessment/Plan: -Abdominal US show fatty liver vs hepatocellular disease -monitor LFTs due to upward trend -MRCP performed, results pending -follow up as an outpatient for chronic liver work-up Code(s): R94.5 - ABNORMAL RESULTS OF LIVER FUNCTION STUDIES (9) Constipation Assessment/Plan: -will start on miralax 17g daily Code(s): K59.00 - CONSTIPATION, UNSPECIFIED
[2018-11-20] MEDS ORDERED: cefTRIAXone SODIUM 1 GM VIAL ONE (09:21)
[2018-11-20] MEDS ORDERED: DEXTROSE 5%-WATER - 50 ML IVPB ONE (09:21)
--- NOTE | 2018-11-20 09:40 | PN ---
GI Progress Note Subjective: Patient denies abdominal pain, nausea, vomiting, or diarrhea. RN states patient has no BM for 3 days. Recent labs show elevated AST/ALT 112/120. Patient had abdominal MRI done to r/o intraductal dilation. Abdomen MRI results pending. - Objective Vital Signs: Vital Signs Temperature 98.0 F 11/20/18 06:00 Pulse Rate 64 11/20/18 06:00 Respiratory Rate 18 11/20/18 06:00 Blood Pressure 127/65 11/20/18 06:00 O2 Sat by Pulse Oximetry (%) 96 11/19/18 21:00 Constitutional: No Distress, Calm Neck: Yes: Supple Cardiovascular: Yes: Regular Rate and Rhythm Respiratory: Yes: Regular, CTA Bilaterally Gastrointestinal Inspection: No: WNL, Ascites, Distention, Hernia, Scars, Other ...Auscultate: Yes: Normoactive Bowel Sounds ...Palpate: Yes: Soft, Other (non-distended). No: Firm/Rigid, Guarding, Hepatomegaly, Mass, Pulsatile Mass, Splenomegaly, Tenderness, Tenderness, Epigastium, Tenderness, Rebound ...Percussion: Yes: Tympanitic. No: Dullness, Fluid Wave, Other Neurological: Yes: Alert Labs: CBC, BMP 11/19/18 06:15 11/19/18 06:15 INR, PTT INR 1.20 (0.83-1.09) H 11/12/18 20:58 Active Medications Generic Name Dose Route Start Last Admin Trade Name Freq PRN Reason Stop Dose Admin Acetaminophen 650 mg 11/13/18 13:55 11/13/18 15:59 Tylenol - PO 650 mg Q4H PRN Administration PAIN Amlodipine Besylate 10 mg 11/13/18 10:00 11/19/18 09:11 Norvasc - PO 10 mg DAILY LO Administration Carbamazepine 400 mg 11/13/18 10:00 11/19/18 21:27 Tegretol - PO 400 mg BID LO Administration Carvedilol 25 mg 11/13/18 10:00 11/19/18 21:26 Coreg - PO 25 mg BID LO Administration Donepezil HCl 10 mg 11/13/18 22:00 11/19/18 21:26 Aricept - PO 10 mg HS LO Administration Heparin Sodium (Porcine) 5,000 unit 11/13/18 10:00 11/19/18 21:26 Heparin - SQ 5,000 unit BID LO Administration Ceftriaxone Sodium 1 gm/ 50 mls @ 100 mls/hr 11/13/18 22:30 11/19/18 09:09 Dextrose IVPB 100 mls/hr DAILY LO Administration Insulin Aspart 1 vial 11/15/18 07:00 11/20/18 06:10 Novolog Vial Sliding Scale - SQ Not Given ACHS [facility] Protocol Insulin Detemir 17 units 11/15/18 07:00 11/20/18 06:10 Levemir Vial SQ 17 units DAILY@0700 LO Administration Lacosamide 100 mg 11/13/18 15:30 11/19/18 21:27 Vimpat - PO 100 mg BID LO Administration Polyethylene Glycol 17 gm 11/20/18 10:00 Miralax (For Daily Use) - PO DAILY [facility] Problem List - Problems (1) Elevated liver enzymes Assessment/Plan: mild hepatocellular injury, most likely this multifactorial including secondary to medication and fatty liver R> avoid hepatocellular medication chronic liver work-up as an outpatient obtain MRCP to r/o intraductal dilation, results pending follow up as an outpatient Code(s): R74.8 - ABNORMAL LEVELS OF OTHER SERUM ENZYMES
[2018-11-20] MEDS ORDERED: POLYETHYLENE GLYCOL 3350 119 GM BTL PO SCH (10:00)
[2018-11-20] MEDS: CEFTRIAXONE 1 GM in DEXTROSE 5%-WATER - 50 ML IVPB SCH (10:06)
[2018-11-20] MEDS: carBAMazepine 200 MG TABLET PO SCH (10:09)
[2018-11-20] MEDS: HEPARIN NA (PORCINE) 5,000 UNITS/ML 1ML VIAL SQ SCH (10:10)
[2018-11-20] MEDS: CARVEDILOL 25 MG TABLET (FP) PO SCH (10:10)
[2018-11-20] MEDS: LACOSAMIDE 50 MG TABLET PO SCH (10:11)
[2018-11-20] MEDS: amLODIPine BESYLATE 10 MG TABLET (FP) PO SCH (10:11)
--- NOTE | 2018-11-20 15:47 | DS ---
Physical Examination Vital Signs: Vital Signs Temperature 98.0 F 11/20/18 14:44 Pulse Rate 65 11/20/18 14:44 Respiratory Rate 18 11/20/18 14:44 Blood Pressure 137/69 11/20/18 14:44 O2 Sat by Pulse Oximetry (%) 96 11/20/18 09:00 Findings/Remarks: Patient is a 68 y/o male with past medical history of HTN, IDDM, seizures and dementia. Patient presented to ER with acute onset of b/l lower extremity weakenss. Head CT scan unremarkable and wbc nl. While in patient noted with elevated LFTs. Abdominal US ordered and showed fatty liver vs hepatocellular disease. GI consulted and ordered MRCP. Abdominal MRI shows no significant intrahepatic or extrahepatic biliary ductal dilatation. No gross choledocholithiasis, multiple pancreatic cysts measuring 6mm which could represent small dilated bracnch duct or intraday tall papillary mucinous neoplasm cannot be excluded. GI made aware of finding and recommendations appreciated. Constitutional: Yes: Well Nourished, No Distress, Calm Eyes: Yes: Conjunctiva Clear HENT: Yes: Normocephalic Neck: Yes: Supple Cardiovascular: Yes: Regular Rate and Rhythm Respiratory: Yes: Regular, CTA Bilaterally Gastrointestinal: Yes: Normal Bowel Sounds, Soft Renal/: Yes: Incontinence Musculoskeletal: Yes: Muscle Weakness Extremities: Yes: WNL Edema: No Neurological: Yes: Alert, Pre-Existing Deficit Psychiatric: Yes: Alert Labs: CBC, BMP 11/19/18 06:15 11/19/18 06:15 Microbiology 11/13/18 17:00 Blood - Peripheral Venous Blood Culture - Final NO GROWTH AFTER 5 DAYS INCUBATION 11/13/18 16:30 Blood - Peripheral Venous Blood Culture - Final NO GROWTH AFTER 5 DAYS INCUBATION 11/13/18 23:30 Stool Clostridium difficile Antigen ([facility]ER) - Final 11/13/18 23:30 Stool Clostridium difficile Toxin Assay - Final 11/12/18 23:41 Urine - Urine Clean Catch Urine Culture - Final NO GROWTH OBTAINED Discharge Summary Reason For Visit: WEAKNESS Current Active Problems RAYNE (acute kidney injury) (Acute) Bilateral leg weakness (Acute) Constipation (Acute) Dementia (Acute) Diabetes mellitus (Acute) Elevated liver enzymes (Acute) Epilepsy (Acute) Fever (Acute) Hypernatremia (Acute) LFT elevation (Acute) Toxic metabolic encephalopathy (Acute) Weakness (Acute) Procedures: Principal: abdominal us. abdominal mri. head ct scan Hospital Course: see progress notes CBC,CMP WBC 4.5 K/mm3 (4.0-10.0) 11/19/18 06:15 RBC 3.06 M/mm3 (4.00-5.60) L 11/19/18 06:15 Hgb 10.3 GM/dL (11.7-16.9) L 11/19/18 06:15 Hct 29.5 % (35.4-49) L 11/19/18 06:15 MCV 96.4 fl (80-96) H 11/19/18 06:15 MCH 33.5 pg (25.7-33.7) 11/19/18 06:15 MCHC 34.8 g/dl (32.0-35.9) 11/19/18 06:15 RDW 13.9 % (11.9-15.9) 11/19/18 06:15 Plt Count 162 K/MM3 (134-434) 11/19/18 06:15 MPV 8.1 fl (7.5-11.1) 11/19/18 06:15 Absolute Neuts (auto) 2.1 K/mm3 (1.5-8.0) 11/16/18 06:00 Neutrophils % 61.1 % (42.8-82.8) D 11/16/18 06:00 Neutrophils % (Manual) 80.8 % (42.8-82.8) 11/12/18 20:58 Band Neutrophils % 3.0 % 11/12/18 20:58 Lymphocytes % 24.3 % (8-40) D 11/16/18 06:00 Lymphocytes % (Manual) 8.1 % (8-40) 11/12/18 20:58 Monocytes % 7.7 % (3.8-10.2) 11/16/18 06:00 Monocytes % (Manual) 8 % (3.8-10.2) 11/12/18 20:58 Eosinophils % 6.6 % (0-4.5) H D 11/16/18 06:00 Eosinophils % (Manual) 0.0 % (0-4.5) 11/12/18 20:58 Basophils % 0.3 % (0-2.0) 11/16/18 06:00 Basophils % (Manual) 0.0 % (0-2.0) 11/12/18 20:58 Myelocytes % (Man) 0 % (0-2) 11/12/18 20:58 Promyelocytes % (Man) 0 % (0-2) 11/12/18 20:58 Blast Cells % (Manual) 0 % (0-0) 11/12/18 20:58 Nucleated RBC % 0 % (0-0) 11/16/18 06:00 Metamyelocytes 0 % (0-2) 11/12/18 20:58 Hypochromia 0 11/12/18 20:58 Toxic Granulation 0 11/12/18 20:58 [place]ohle Bodies 0 11/12/18 20:58 Platelet Estimate Decreased 11/12/18 20:58 Polychromasia 0 11/12/18 20:58 Poikilocytosis 0 11/12/18 20:58 Basophilic Stippling 0 11/12/18 20:58 Anisocytosis 0 11/12/18 20:58 Microcytosis 0 11/12/18 20:58 Macrocytosis 0 11/12/18 20:58 Spherocytes 0 11/12/18 20:58 Sickle Cells 0 11/12/18 20:58 Target Cells 0 11/12/18 20:58 Tear Drop Cells 0 11/12/18 20:58 Ovalocytes 0 11/12/18 20:58 Stomatocytes 0 11/12/18 20:58 Helmet Cells 0 11/12/18 20:58 [place] Bodies 0 11/12/18 20:58 [place] Rings 0 11/12/18 20:58 [place] Cells 0 11/12/18 20:58 Acanthocytes (Spur) 0 11/12/18 20:58 Rouleaux 0 11/12/18 20:58 Fragmented RBCs 0 11/12/18 20:58 Schistocytes 0 11/12/18 20:58 ESR 74 mm/hr (0-20) H 11/15/18 06:07 Sodium 141 mmol/L (136-145) 11/19/18 06:15 Potassium 4.6 mmol/L (3.5-5.1) 11/19/18 06:15 Chloride 111 mmol/L (98-107) H 11/19/18 06:15 Carbon Dioxide 26 mmol/L (21-32) 11/19/18 06:15 Anion Gap 4 MMOL/L (8-16) L 11/19/18 06:15 BUN 26 mg/dL (7-18) H 11/19/18 06:15 Creatinine 1.1 mg/dL (0.55-1.3) 11/19/18 06:15 Creat Clearance w eGFR > 60 (>60) 11/19/18 06:15 POC Glucometer 183 UNITS (80-120) 11/20/18 11:42 Random Glucose 106 mg/dL (74-106) 11/19/18 06:15 Hemoglobin A1c % 7.0 % (4.2-6.3) H 11/13/18 06:00 Uric Acid 10.4 mg/dL (2.6-7.2) H 11/16/18 06:00 Calcium 7.8 mg/dL (8.5-10.1) L 11/19/18 06:15 Magnesium 2.5 mg/dL (1.8-2.4) H 11/15/18 06:07 Iron 45 ug/dL (38-169) 11/15/18 06:00 TIBC 122 ug/dL (250-450) L 11/15/18 06:00 Iron Saturation 37 % (15-55) 11/15/18 06:00 Total Bilirubin 0.6 mg/dL (0.2-1) 11/19/18 06:15 AST 112 U/L (15-37) H 11/19/18 06:15 ALT 120 U/L (13-61) H 11/19/18 06:15 Alkaline Phosphatase 99 U/L (45-117) 11/19/18 06:15 Creatine Kinase 123 U/L (26-308) 11/12/18 20:58 Troponin I < 0.02 ng/ml (0.00-0.05) 11/12/18 20:58 C-Reactive Protein 16.4 MG/DL (0.00-0.3) H 11/15/18 06:07 Total Protein 5.8 g/dl (6.4-8.2) L 11/19/18 06:15 Albumin 2.4 g/dl (3.4-5.0) L 11/19/18 06:15 Vitamin B12 515 pg/ml (193-986) 11/13/18 14:30 Serum Folate 4 ng/mL (3.1-17.5) 11/16/18 06:00 TSH 2.28 uIU/ml (0.358-3.74) 11/13/18 03:53 Active Medications Generic Name Dose Route Start Last Admin Trade Name Freq PRN Reason Stop Dose Admin Acetaminophen 650 mg 11/13/18 13:55 11/13/18 15:59 Tylenol - PO 650 mg Q4H PRN Administration PAIN Amlodipine Besylate 10 mg 11/13/18 10:00 11/20/18 10:11 Norvasc - PO 10 mg DAILY LO Administration Carbamazepine 400 mg 11/13/18 10:00 11/20/18 10:09 Tegretol - PO 400 mg BID LO Administration Carvedilol 25 mg 11/13/18 10:00 11/20/18 10:10 Coreg - PO 25 mg BID LO Administration Donepezil HCl 10 mg 11/13/18 22:00 11/19/18 21:26 Aricept - PO 10 mg HS LO Administration Heparin Sodium (Porcine) 5,000 unit 11/13/18 10:00 11/20/18 10:10 Heparin - SQ 5,000 unit BID [facility] Administration Ceftriaxone Sodium 1 gm/ 50 mls @ 100 mls/hr 11/13/18 22:30 11/20/18 10:06 Dextrose IVPB 100 mls/hr DAILY LO Administration Insulin Aspart 1 vial 11/15/18 07:00 11/20/18 13:01 Novolog Vial Sliding Scale - SQ Not Given [facility] Protocol Insulin Detemir 17 units 11/15/18 07:00 11/20/18 06:10 Levemir Vial SQ 17 units DAILY@0700 LO Administration Lacosamide 100 mg 11/13/18 15:30 11/20/18 10:11 Vimpat - PO 100 mg BID LO Administration Polyethylene Glycol 17 gm 11/20/18 10:00 11/20/18 10:06 Miralax (For Daily Use) - PO 17 grams DAILY LO Administration Microbiology 11/13/18 17:00 Blood - Peripheral Venous Blood Culture - Final NO GROWTH AFTER 5 DAYS INCUBATION 11/13/18 16:30 Blood - Peripheral Venous Blood Culture - Final NO GROWTH AFTER 5 DAYS INCUBATION 11/13/18 23:30 Stool Clostridium difficile Antigen ([facility]) - Final 11/13/18 23:30 Stool Clostridium difficile Toxin Assay - Final 11/12/18 23:41 Urine - Urine Clean Catch Urine Culture - Final NO GROWTH OBTAINED Condition: Stable - Instructions Diet, Activity, Other Instructions: Patient to follow up with PMD in 3-4 days Patient to follow with GI Dr. Guerra as outpatient for chronic liver workup and EUS continue with current med regimen if develop chest pain, SOB, or AMS return to ER resume home care services and will receive outside PT Referrals: Avni Guerra MD [Staff Physician] - Disposition: HOME - Home Medications Comprehensive Discharge Medication List: Ambulatory Orders Amlodipine Besylate [Norvasc] 10 mg PO DAILY 04/05/12 Carbamazepine [Tegretol] 400 mg PO BID 04/05/12 Carvedilol [Coreg] 25 mg PO BID 04/05/12 Furosemide [Lasix] 40 mg PO DAILY 04/05/12 Vit B1 Mn/B2/B3/B5/B6/B12/C/FA [B Complex with Vitamin C Tab] 1 each PO DAILY Donepezil HCl 10 mg PO HS 06/26/18 Insulin Glargine,Hum.rec.anlog [Lantus] 28 unit SQ DAILY 06/26/18 Lacosamide [Vimpat -] 100 mg PO BID 06/26/18
--- NOTE | 2018-11-20 16:42 | PN ---
Progress Note, Physician History of Present Illness: Pt seen and examined at bedside. He is awake and appears comfortable. He is tolerating diet. - Current Medication List Current Medications: Active Medications Acetaminophen (Tylenol -) 650 mg PO Q4H PRN PRN Reason: PAIN Last Admin: 11/13/18 15:59 Dose: 650 mg Amlodipine Besylate (Norvasc -) 10 mg PO DAILY [facility] Last Admin: 11/20/18 10:11 Dose: 10 mg Carbamazepine (Tegretol -) 400 mg PO BID [facility] Last Admin: 11/20/18 10:09 Dose: 400 mg Carvedilol (Coreg -) 25 mg PO BID [facility] Last Admin: 11/20/18 10:10 Dose: 25 mg Donepezil HCl (Aricept -) 10 mg PO HS [facility] Last Admin: 11/19/18 21:26 Dose: 10 mg Heparin Sodium (Porcine) (Heparin -) 5,000 unit SQ BID [facility] Last Admin: 11/20/18 10:10 Dose: 5,000 unit Ceftriaxone Sodium 1 gm/ (Dextrose) 50 mls @ 100 mls/hr IVPB DAILY [facility] Last Admin: 11/20/18 10:06 Dose: 100 mls/hr Insulin Aspart (Novolog Vial Sliding Scale -) 1 vial SQ ACHS [facility]; Protocol Last Admin: 11/20/18 13:01 Dose: Not Given Insulin Detemir (Levemir Vial) 17 units SQ DAILY@0700 [facility] Last Admin: 11/20/18 06:10 Dose: 17 units Lacosamide (Vimpat -) 100 mg PO BID [facility] Last Admin: 11/20/18 10:11 Dose: 100 mg Polyethylene Glycol (Miralax (For Daily Use) -) 17 gm PO DAILY [facility] Last Admin: 11/20/18 10:06 Dose: 17 grams - Objective Vital Signs: Vital Signs Temperature 98.0 F 11/20/18 14:44 Pulse Rate 65 11/20/18 14:44 Respiratory Rate 18 11/20/18 14:44 Blood Pressure 137/69 11/20/18 14:44 O2 Sat by Pulse Oximetry (%) 96 11/20/18 09:00 Constitutional: Yes: Calm Eyes: Yes: Conjunctiva Clear HENT: Yes: Atraumatic Neck: Yes: Supple Cardiovascular: Yes: S1, S2 Respiratory: Yes: CTA Bilaterally Gastrointestinal: Yes: Soft Genitourinary: Yes: WNL Musculoskeletal: Yes: WNL Edema: No Neurological: Yes: Oriented Psychiatric: Yes: Oriented Labs: CBC, BMP 11/19/18 06:15 11/19/18 06:15 INR, PTT INR 1.20 (0.83-1.09) H 11/12/18 20:58 Problem List - Problems (1) RAYNE (acute kidney injury) Code(s): N17.9 - ACUTE KIDNEY FAILURE, UNSPECIFIED (2) Bilateral leg weakness Code(s): R29.898 - OTH SYMPTOMS AND SIGNS INVOLVING THE MUSCULOSKELETAL SYSTEM (3) Dementia Code(s): F03.90 - UNSPECIFIED DEMENTIA WITHOUT BEHAVIORAL DISTURBANCE (4) Epilepsy Code(s): G40.909 - EPILEPSY, UNSP, NOT INTRACTABLE, WITHOUT STATUS EPILEPTICUS (5) Fever Code(s): R50.9 - FEVER, UNSPECIFIED (6) Hypernatremia Code(s): E87.0 - HYPEROSMOLALITY AND HYPERNATREMIA (7) Weakness Code(s): R53.1 - WEAKNESS Assessment/Plan Current Medications Generic Name Dose Route Start Last Admin Trade Name Freq PRN Reason Stop Dose Admin Acetaminophen 650 mg 11/13/18 13:55 11/13/18 15:59 Tylenol - PO 650 mg Q4H PRN Administration PAIN Amlodipine Besylate 10 mg 11/13/18 10:00 11/20/18 10:11 Norvasc - PO 10 mg DAILY LO Administration Carbamazepine 400 mg 11/13/18 10:00 11/20/18 10:09 Tegretol - PO 400 mg BID LO Administration Carvedilol 25 mg 11/13/18 10:00 11/20/18 10:10 Coreg - PO 25 mg BID LO Administration Donepezil HCl 10 mg 11/13/18 22:00 11/19/18 21:26 Aricept - PO 10 mg HS LO Administration Heparin Sodium (Porcine) 5,000 unit 11/13/18 10:00 11/20/18 10:10 Heparin - SQ 5,000 unit BID LO Administration Ceftriaxone Sodium 1 gm/ 50 mls @ 100 mls/hr 11/13/18 22:30 11/20/18 10:06 Dextrose IVPB 100 mls/hr DAILY LO Administration Insulin Aspart 1 vial 11/15/18 07:00 11/20/18 13:01 Novolog Vial Sliding Scale - SQ Not Given ACHS [facility] Protocol Insulin Detemir 17 units 11/15/18 07:00 11/20/18 06:10 Levemir Vial SQ 17 units DAILY@0700 LO Administration Lacosamide 100 mg 11/13/18 15:30 11/20/18 10:11 Vimpat - PO 100 mg BID LO Administration Polyethylene Glycol 17 gm 11/20/18 10:00 11/20/18 10:06 Miralax (For Daily Use) - PO 17 grams DAILY LO Administration Impression 1. RAYNE 2. hypernatremia 3. weakness 4. dementia 5. HTN 6. epilepsy 7. DM Plan - no new labs - pt tolerating diet - monitor renal function as outpt - discussed with medical team - will follow PRN Dr Gallo
[2018-11-20 17:09] VITALS: BP 124/77; PULSE 69; TEMP 98.7
== END 2018-11-20 18:15 | disposition home or self-care (01) | DRG 682 ==
LOC: JER 19:05 → JERBED 11-13 01:44 → J7W 11-13 09:10 → OBSVTOIN 11-14 09:26 → UNDODISIN 11-19 15:34
PROVIDERS: ADMIT Internal Medicine; ATTEND Family Medicine
DX: N17.9 Acute kidney failure, unspecified (principal); G92 Toxic encephalopathy; E87.0 Hyperosmolality and hypernatremia; G81.94 Hemiplegia, unspecified affecting left nondominant side; F03.90 Unspecified dementia, unspecified severity, without behavioral disturbance, psychotic disturbance, mood disturbance, and anxiety; E11.40 Type 2 diabetes mellitus with diabetic neuropathy, unspecified; Z79.4 Long term (current) use of insulin; E86.0 Dehydration; G40.909 Epilepsy, unspecified, not intractable, without status epilepticus; D69.6 Thrombocytopenia, unspecified; D72.819 Decreased white blood cell count, unspecified; E66.3 Overweight; D64.9 Anemia, unspecified; G56.02 Carpal tunnel syndrome, left upper limb; E11.22 Type 2 diabetes mellitus with diabetic chronic kidney disease; I12.9 Hypertensive chronic kidney disease with stage 1 through stage 4 chronic kidney disease, or unspecified chronic kidney disease; N18.9 Chronic kidney disease, unspecified; R94.5 Abnormal results of liver function studies; K76.0 Fatty (change of) liver, not elsewhere classified; B34.9 Viral infection, unspecified; Z68.25 Body mass index [BMI] 25.0-25.9, adult
CPT/HCPCS: 36415; 70450-TC; 71045-TC-FY; 74183-TC; 76700-TC; 76775-TC; 76856-TC; 80048; 80053; 80156; 81003; 81015; 82436; 82550; 82570; 82607; 82746; 82962; 83036; 83540; 83550; 83735; 84133; 84300; 84443; 84484; 84550; 85025; 85027; 85610; 85651; 86038; 86140; 86593; 87040; 87086; 87324; 87449; 87804; 93005; 93010; 93970-TC; 95860-TC; 97116-GP; 97162-GP; 99282-25; C1887; G0378; J1644; J7030

== ENCOUNTER 2021-05-27 17:06 | Emergency (ER) | payer OTHER ==
[2021-05-27 17:33] VITALS: TEMP 98.4; BMI 25.1
[2021-05-27 19:19] LABS: BASO % 0.5 % (0-2.0); EOS % 5.2 % (0-4.5); HEMATOCRIT 29.1 % (35.4-49); HEMOGLOBIN 9.8 GM/dL (11.7-16.9); LYMPH % 14.6 % (8-40); MCH 33.1 pg (25.7-33.7); MCHC 33.6 g/dl (32.0-35.9); MEAN CELL VOLUME 98.4 fl (80-96); MEAN PLT VOLUME 7.7 fl (7.5-11.1); MONO % 12.8 % (3.8-10.2); NEUT % 66.9 % (42.8-82.8); PLATELET COUNT 168 10^3/uL (134-434); RBC 2.96 M/mm3 (4.00-5.60); RDW 14.6 % (11.9-15.9); WHITE BLOOD COUNT 4.8 K/mm3 (4.0-10.0)
[2021-05-27 19:45] LABS: CALCIUM 8.1 mg/dL (8.5-10.1)
[2021-05-27 19:46] LABS: ALBUMIN 3.1 g/dl (3.4-5.0); BLOOD UREA NITROGEN 33.6 mg/dL (7-18)
[2021-05-27 19:48] LABS: CREATININE 1.2 mg/dL (0.55-1.3)
[2021-05-27 19:50] LABS: BILIRUBIN,TOTAL 0.2 mg/dL (0.2-1)
[2021-05-28 00:41] VITALS: BP 177/77; PULSE 71
== END 2021-05-28 01:06 | disposition home or self-care (01) ==
LOC: JER 17:06
DX: S62.619A Displaced fracture of proximal phalanx of unspecified finger, initial encounter for closed fracture (principal)
CPT/HCPCS: 36415; 70450-TC; 72125-TC; 73110-TC-LT-FY; 73130-TC-LT-FY; 80053; 85025; 93005; 93010; 99284-25

== ENCOUNTER 2021-09-06 13:52 | Emergency (ER) | payer OTHER ==
[2021-09-06] MEDS ORDERED: ACETAMINOPHEN 325 MG TABLET (FP) PO ONE (15:33)
[2021-09-06 15:35] VITALS: BMI 26.7
[2021-09-06] MEDS ORDERED: ACETAMINOPHEN 325 MG TABLET (FP) ONE (16:01)
[2021-09-07 09:12] VITALS: BP 155/97; PULSE 74; TEMP 98.4
== END 2021-09-07 14:05 | disposition home or self-care (01) ==
LOC: JER 13:52
DX: M25.561 Pain in right knee (principal)
CPT/HCPCS: 73070-TC-RT-FY; 73090-TC-RT-FY; 73564-TC-RT-FY; 99285-25